=== PATIENT | male | born 1970 | race Hispanic/Latino ===

== ENCOUNTER 2018-01-22 13:09 | Inpatient (IN) | payer SELFPAY ==
[2018-01-22] MEDS ORDERED: NA CHLORIDE 0.9% 1,000 ML ONE (14:18)
[2018-01-22] MEDS ORDERED: ONDANSETRON 4 MG/2 ML VIAL ONE (14:18)
[2018-01-22 14:31] LABS: Absolute Lymphocytes (CBC) 1.7 K/uL (0.7-4.9); Absolute Monocytes 1.1 K/uL (0.1-1.3); Absolute Neutrophil 7.5 K/uL (1.8-8.0); Basophils % 0.3 % (0-1.3); Eosinophils % 0.7 % (0-4.4); Lymphocytes % 16.7 % (15.3-44.8); MCH 29.1 pg (27.0-35.0); MCV 86.7 fL (80-100); MPV 7.2 fL (7.6-11.3); Monocytes % 10.2 % (3.3-12.3)
[2018-01-22 14:52] LABS: Potassium 3.8 mEq/L (3.6-5.0)
[2018-01-22 14:58] LABS: Albumin 5.5 g/dL (3.2-5.5); Bilirubin Direct 0.1 mg/dL (0-0.2); Bilirubin Total 0.5 mg/dL (0.3-1.2)
[2018-01-22] MEDS ORDERED: PROMETHAZINE 25 MG/ML VIAL ONE (15:38)
[2018-01-22 15:56] LABS: Blood Morphology Comment NOT SEEN (NOT SEEN); Platelet Estimate ADEQ
--- NOTE | 2018-01-22 16:25 | RAD REPORT ---
EXAM DESCRIPTION: CT - Abdomen Pelvis W Contrast - 01/22/2018 4:03 pm CLINICAL HISTORY: Epigastric pain, vomiting COMPARISON: None. TECHNIQUE: Biphasic, helical CT imaging of the abdomen and pelvis was performed following 100 ml non -ionic IV contrast. Oral contrast was given. All CT scans are performed using dose optimization technique as appropriate and may include automated exposure control or mA/KV adjustment according to patient size. FINDINGS: No suspicious findings in the lung bases. The liver, spleen, and pancreas show no suspicious findings. Gallbladder and biliary tree are also wi thout suspicious finding. Liver attenuation is borderline fatty infiltrated. Symmetric renal function is seen with no hydronephrosis or suspicious renal mass. No pyelonephritis o r acute renal parenchymal process. Urinary bladder is normal. Prostate gland and seminal vesicles als o within normal limits. Bilateral fat filled inguinal hernias are present with no acute component. No gastric dilatation or gastric wall thickening. No duodenal abnormality. Jejunum and proximal ileum show dilated small bowel pattern up to 3.5 cm in size. Several small mesenteric lymph nodes are pres ent in the central abdomen. There is a swirled or rotated appearance to the central mesenteric vascul ar pedicle. No bowel wall edema. At the transition point in the central mid abdomen there is no mass. Air and fluid are present in the colon. No appendicitis. No free air, free fluid or pneumatosis. No mass or bulky lymphadenopathy. No adrenal abnormality. No suspicious bony findings. IMPRESSION: Multiple dilated small bowel loops with a transition seen in the central abdomen mid ile um level. No mass at this site. There is a rotated or swirled appearance to the mesenteric vascular p edicle. As detailed above, findings could represent an early small bowel obstruction or a prominent gastroent eritis. No free air, abscess or surgically emergent finding.
--- NOTE | 2018-01-22 17:02 | ER ---
Nurse's Notes [facility] Name: Avel Yen Jr Age: 47 yrs Sex: Male : 1970 Arrival Date: 01/22/2018 Time: 13:10 Bed 23 Private MD: Diagnosis: Vomiting;Diarrhea, unspecified;Unspecified abdominal pain Presentation: 01/22 13:48 Presenting complaint: Patient states: Epigastric pain with vomiting and diarrhea for 2 aj days. Patient rates pain at 10/10. Transition of care: patient was not received from another setting of care. Onset of symptoms was January 20, 2018. Initial Sepsis Screen: Does the patient meet any 2 criteria? No. Patient's initial sepsis screen is negative. Does the patient have a suspected source of infection? No. Patient's initial sepsis screen is negative. Care prior to arrival: None. 13:48 Method Of Arrival: Ambulatory aj 13:48 Acuity: DAYANARA 3 aj Triage Assessment: 13:50 General: Appears in no apparent distress. uncomfortable, Behavior is calm, cooperative, aj appropriate for age. Pain: Complains of pain in epigastric area. Neuro: Level of Consciousness is awake, alert, obeys commands, Oriented to person, place, time, situation, Appropriate for age. Respiratory: Airway is patent Respiratory effort is even, unlabored, Respiratory pattern is regular, symmetrical. GI: Reports upper abdominal pain, diarrhea, nausea, vomiting. Derm: Skin is intact, is healthy with good turgor, Skin is pink, warm \T\ dry. normal. Historical: - Allergies: 13:50 No Known Allergies; aj - Home Meds: 13:50 None [Active]; aj - PMHx: 13:50 None; aj - PSHx: 13:50 None; aj - Immunization history:: Adult Immunizations up to date. - Social history:: Smoking status: Patient uses tobacco products, smokes one-half pack cigarettes per day. - Family history:: not pertinent. - Hospitalizations: : No recent hospitalization is reported. Screenin:01 Abuse screen: Denies threats or abuse. Denies injuries from another. Nutritional ss screening: No deficits noted. Tuberculosis screening: Never had TB. Fall Risk None identified. Assessment: 14:01 General: Appears uncomfortable, Behavior is cooperative, anxious, Reports feeling ill ss for fatigue for 2 days. Denies fever. Pain: Complains of pain in abdomen Pain currently is 10 out of 10 on a pain scale. Quality of pain is described as burning, crampy, Pain began 2 days ago Is continuous. Neuro: Level of Consciousness is awake, alert, obeys commands, Oriented to person, place, time, situation, Gait is steady, Speech is normal, Pupils are PERRLA. Cardiovascular: Capillary refill < 3 seconds is brisk in bilateral fingers Patient's skin is warm and dry. Respiratory: Airway is patent Respiratory effort is even, unlabored, Respiratory pattern is regular, symmetrical. GI: Abdomen is non-distended, Bowel sounds present X 4 quads. Abd is soft and non tender X 4 quads. Reports upper abdominal pain, diarrhea, nausea, vomiting. : No signs and/or symptoms were reported regarding the genitourinary system. EENT: Nares are clear Oral mucosa is dry. Derm: Skin is intact, is healthy with good turgor, Skin is dry, Skin is pink, warm \T\ dry. Musculoskeletal: Circulation, motion, and sensation intact. Range of motion: intact in all extremities, Swelling absent. 15:35 Reassessment: Patient woke from sleep with abd pain and vomiting, MD notified, new lk1 orders received. 16:15 Reassessment: Patient and/or family updated on plan of care and expected duration. Pain lk1 level reassessed. Patient is alert, oriented x 3, equal unlabored respirations, skin warm/dry/pink. Patient states feeling better. Patient states symptoms have improved. 18:00 Reassessment: Patient and/or family updated on plan of care and expected duration. Pain lk1 level reassessed. Patient is alert, oriented x 3, equal unlabored respirations, skin warm/dry/pink. Patient states feeling better. Vital Signs: 13:50 BP 143 / 87; Pulse 94; Resp 16; Temp 97.9; Pulse Ox 98% on R/A; Weight 102.06 kg; aj Height 5 ft. 11 in. (180.34 cm); Pain 10/10; 15:30 BP 142 / 81; Pulse 85; Resp 16; Pulse Ox 100% on R/A; Pain 8/10; lk1 17:00 BP 137 / 82; Pulse 86; Resp 16; Pulse Ox 100% on R/A; lk1 18:00 BP 148 / 95; Pulse 82; Resp 15; Pulse Ox 100% on R/A; lk1 18:30 BP 142 / 91; Pulse 83; Resp 16; Pulse Ox 100% on R/A; lk1 13:50 Body Mass Index 31.38 (102.06 kg, 180.34 cm) aj ED Course: 13:10 Patient arrived in ED. as 13:49 Triage completed. aj 13:50 Arm band placed on left wrist. Patient placed in an exam room. aj 13:55 Pablo Cortes MD is Attending Physician. rn 14:00 Aliyah Vazquez RN is Primary Nurse. ss 14:00 Inserted saline lock: 20 gauge in right antecubital area, using aseptic technique. ss Blood collected. Patient maintains SpO2 saturation greater than 95% on room air. 14:01 Patient has correct armband on for positive identification. Bed in low position. Call ss light in reach. 16:[address] via wheelchair. em2 16:03 CT Abd/Pelvis - W/Contrast In Process Unspecified. EDMS 16:04 CT completed. Patient tolerated procedure well. em2 16:05 Patient moved back from CT. em2 17:01 Elisa Chandler MD is Hospitalizing Provider. rn 18:52 No provider procedures requiring assistance completed. Patient admitted, IV remains in lk1 place. intact, No redness/swelling at site. Administered Medications: 14:24 Drug: NS 0.9% 1000 ml Route: IV; Rate: 1000 ml; Site: right antecubital; ss 15:20 Follow up: Response: No adverse reaction; IV Status: Completed infusion lk1 14:25 Drug: Zofran 4 mg Route: IVP; Site: right antecubital; ss 15:00 Follow up: Response: No adverse reaction; Marked relief of symptoms; Nausea is decreasedlk1 15:45 Drug: Phenergan 12.5 mg Route: IVP; Site: right antecubital; lk1 16:15 Follow up: Response: No adverse reaction; Marked relief of symptoms; Nausea is decreasedlk1 17:45 Drug: Rocephin - (cefTRIAXone) 1 grams Route: IVPB; Infused Over: 30 mins; Site: right lk1 antecubital; 18:07 Follow up: Response: No adverse reaction; IV Status: Completed infusion lk1 18:08 Drug: Flagyl 500 mg Volume: 100 ml; Route: IVPB; Rate: 200 ml/hr; Infused Over: 30 lk1 mins; Site: right antecubital; 18:40 Follow up: Response: No adverse reaction; IV Status: Completed infusion lk1 Outcome: 17:02 Decision to Hospitalize by Provider. rn 18:51 Admitted to Med/surg accompanied by tech, via wheelchair, room 406, with chart, Report lk1 called to Blane 18:51 Condition: good 18:51 Discharge instructions given to patient, Instructed on the need for admit, Demonstrated understanding of instructions. 18:52 Patient left the ED. lk1 Signatures: Dispatcher [employer] EDJosephine Márquez RN RN aj Martinez, Amelia as Nieto, Roman, MD MD rn Smirch, Shelby, RN RN ss Montes, Enrique em2 Kluge, Leah, RN RN lk1
--- NOTE | 2018-01-22 17:03 | EDPHYS ---
Physician Documentation [facility] Name: Avel Yen Jr Age: 47 yrs Sex: Male : 1970 Arrival Date: 01/22/2018 Time: 13:10 Bed 23 Private MD: ED Physician Pablo Cortes HPI: 01/22 16:53 This 47 yrs old Male presents to ER via Ambulatory with complaints of rn Abdominal Pain, Vomiting/Diarrhea. 16:53 The patient presents to the emergency department with nausea, vomiting, diarrhea, rn abdominal pain. Onset: The symptoms/episode began/occurred yesterday. Possible causes: unknown. Associated signs and symptoms: Pertinent positives: abdominal pain, diarrhea, nausea, vomiting, Pertinent negatives: fever, GI bleeding. Severity of symptoms: At their worst the symptoms were moderate in the emergency department the symptoms are unchanged. The patient has not experienced similar symptoms in the past. Historical: - Allergies: 13:50 No Known Allergies; aj - Home Meds: 13:50 None [Active]; aj - PMHx: 13:50 None; aj - PSHx: 13:50 None; aj - Immunization history:: Adult Immunizations up to date. - Social history:: Smoking status: Patient uses tobacco products, smokes one-half pack cigarettes per day. - Family history:: not pertinent. - Hospitalizations: : No recent hospitalization is reported. ROS: 16:53 Constitutional: Negative for fever, chills, and weight loss, Eyes: Negative for injury, rn pain, redness, and discharge, Neck: Negative for injury, pain, and swelling, Cardiovascular: Negative for chest pain, palpitations, and edema, Respiratory: Negative for shortness of breath, cough, wheezing, and pleuritic chest pain, Abdomen/GI: + abd pain, vomiting, diarrhea Back: Negative for injury and pain, MS/Extremity: Negative for injury and deformity, Skin: Negative for injury, rash, and discoloration, Neuro: Negative for headache, weakness, numbness, tingling, and seizure. Exam: 16:53 Constitutional: This is a well developed, well nourished patient who is awake, alert, rn actively vomiting, appears uncomfortable Head/Face: Normocephalic, atraumatic. Eyes: Pupils equal round and reactive to light, extra-ocular motions intact. Lids and lashes normal. Conjunctiva and sclera are non-icteric and not injected. Cornea within normal limits. Periorbital areas with no swelling, redness, or edema. ENT: dry MM Cardiovascular: Regular rate and rhythm with a normal S1 and S2. No gallops, murmurs, or rubs. Normal PMI, no JVD. No pulse deficits. Respiratory: Lungs have equal breath sounds bilaterally, clear to auscultation and percussion. No rales, rhonchi or wheezes noted. No increased work of breathing, no retractions or nasal flaring. Abdomen/GI: soft, + periumbilical tenderness, no rebound, no peritoneal signs Skin: Warm, dry, no evidence of cellulitis. MS/ Extremity: Pulses equal, no cyanosis. Neurovascular intact. Full, normal range of motion. Equal circumference. Vital Signs: 13:50 BP 143 / 87; Pulse 94; Resp 16; Temp 97.9; Pulse Ox 98% on R/A; Weight 102.06 kg; aj Height 5 ft. 11 in. (180.34 cm); Pain 10/10; 15:30 BP 142 / 81; Pulse 85; Resp 16; Pulse Ox 100% on R/A; Pain 8/10; lk1 17:00 BP 137 / 82; Pulse 86; Resp 16; Pulse Ox 100% on R/A; lk1 18:00 BP 148 / 95; Pulse 82; Resp 15; Pulse Ox 100% on R/A; lk1 18:30 BP 142 / 91; Pulse 83; Resp 16; Pulse Ox 100% on R/A; lk1 13:50 Body Mass Index 31.38 (102.06 kg, 180.34 cm) aj MDM: 13:55 Patient medically screened. rn 16:53 Differential diagnosis: Nonspecific abd pain, viral gastroenteritis, gastroenteritis, rn obstruction, colitis, enteritis. 16:58 Data reviewed: vital signs, nurses notes, lab test result(s), radiologic studies, CT rn scan, and as a result, I will admit patient. Counseling: I had a detailed discussion with the patient and/or guardian regarding: the historical points, exam findings, and any diagnostic results supporting the discharge/admit diagnosis, lab results, radiology results, the need for further work-up and treatment in the hospital. Admission orders: after a detailed discussion of the patient's condition and case, the admit orders are written by me. 17:00 ED course: Consulted with Dr. Barajas, will admit to Dr. Chandler, abx, fluids, pain meds, rn rpt kub in AM, most likely enteritis, no previous surgeries or reason for SBO. . 01/22 13:59 Order name: Basic Metabolic Panel; Complete Time: 16:07 01/22 13:59 Order name: CBC with Diff; Complete Time: 16: 01/22 13:59 Order name: Creatinine for Radiology; Complete Time: 16:07 01/22 13:59 Order name: Hepatic Function; Complete Time: 16:07 01/22 13:59 Order name: Lipase; Complete Time: 16: 01/22 15:52 Order name: Manual Differential; Complete Time: 16:07 [facility] 01/22 16:46 Order name: Stool Culture 01/22 16:46 Order name: Rotavirus Antigen 01/22 16:46 Order name: Ova And Parasites 01/22 16:46 Order name: CDIFF 01/22 16:46 Order name: Stool Culture [facility] 01/22 16:46 Order name: Rotavirus Antigen [facility] 01/22 13:59 Order name: IV Saline Lock; Complete Time: 14:08 01/22 13:59 Order name: Labs collected and sent; Complete Time: 14:08 01/22 13:59 Order name: CT Abd/Pelvis - W/Contrast; Complete Time: 16:26 01/22 16:47 Order name: Ova and Parasites [facility] 01/22 17:08 Order name: CONS Physician Consult [facility] 01/22 17:08 Order name: NPO [facility] Administered Medications: 14:24 Drug: NS 0.9% 1000 ml Route: IV; Rate: 1000 ml; Site: right antecubital; ss 15:20 Follow up: Response: No adverse reaction; IV Status: Completed infusion lk1 14:25 Drug: Zofran 4 mg Route: IVP; Site: right antecubital; ss 15:00 Follow up: Response: No adverse reaction; Marked relief of symptoms; Nausea is decreasedlk1 15:45 Drug: Phenergan 12.5 mg Route: IVP; Site: right antecubital; lk1 16:15 Follow up: Response: No adverse reaction; Marked relief of symptoms; Nausea is decreasedlk1 17:45 Drug: Rocephin - (cefTRIAXone) 1 grams Route: IVPB; Infused Over: 30 mins; Site: right lk1 antecubital; 18:07 Follow up: Response: No adverse reaction; IV Status: Completed infusion lk1 18:08 Drug: Flagyl 500 mg Volume: 100 ml; Route: IVPB; Rate: 200 ml/hr; Infused Over: 30 lk1 mins; Site: right antecubital; 18:40 Follow up: Response: No adverse reaction; IV Status: Completed infusion lk1 Disposition: 01/22/18 17:02 Hospitalization ordered by Elisa Chandler for Inpatient Admission. Preliminary diagnosis are Vomiting, Diarrhea, unspecified, Unspecified abdominal pain. - Bed requested for Telemetry/MedSurg (Inpatient). - Status is Inpatient Admission. lk1 - Condition is Stable. - Problem is new. - Symptoms have improved. UTI on Admission? No Signatures: Dispatcher [employer] EDCO Josephine Brennan RN RN aj Nieto, Roman, MD MD rn Smirch, Shelby, RN RN ss Kluge, Leah, RN RN lk1 Rajinder Sánchez mw2 Corrections: (The following items were deleted from the chart) 15:52 14:38 CBC Smear Scan ordered. [facility] EDCO 16:47 16:47 Occult Blood+PA.LAB.BRZ ordered. [facility] EDCO 16:55 16:53 Constitutional: This is a well developed, well nourished patient who is awake, rn alert, actively vomiting, appears uncomfortable Head/Face: Normocephalic, atraumatic. Eyes: Pupils equal round and reactive to light, extra-ocular motions intact. Lids and lashes normal. Conjunctiva and sclera are non-icteric and not injected. Cornea within normal limits. Periorbital areas with no swelling, redness, or edema. ENT: dry MM Cardiovascular: Regular rate and rhythm with a normal S1 and S2. No gallops, murmurs, or rubs. Normal PMI, no JVD. No pulse deficits. Respiratory: Lungs have equal breath sounds bilaterally, clear to auscultation and percussion. No rales, rhonchi or wheezes noted. No increased work of breathing, no retractions or nasal flaring. Abdomen/GI: soft, + periumbilical tenderness, no rebound, no peritoneal signs Skin: Warm, dry with normal turgor. Normal color with no rashes, no lesions, and no evidence of cellulitis. MS/ Extremity: Pulses equal, no cyanosis. Neurovascular intact. Full, normal range of motion. Equal circumference. rn
[2018-01-22] MEDS ORDERED: METRONIDAZOLE 500mg IVPB 500 MG/100 ML BAG IV ONE (17:04)
[2018-01-22] MEDS ORDERED: CEFTRIAXONE/SWI 1gm 0 GM/0 ML SYR ONE (17:04)
[2018-01-22] MEDS ORDERED: ONDANSETRON 4 MG/2 ML VIAL IV PRN (17:06)
--- NOTE | 2018-01-22 17:09 | P.HP ---
Certification for Inpatient Patient admitted to: Observation With expected LOS: <2 Midnights Patient will require the following post-hospital care: None Practitioner: I am a practitioner with admitting privileges, knowledge of patient current condition, hospital course, and medical plan of care. Services: Services provided to patient in accordance with Admission requirements found in Title 42 Section 412.3 of the Code of Federal Regulations Patient History Date of Service: 01/22/18 Primary Care Provider: None Reason for admission: Abd Pain History of Present Illness: The 47-year-old with no significant past medical history who presented to the ED complaining of abdominal pain nausea vomiting and diarrhea that has been going on for past 2 days. Patient states that he was in his usual state of health until he started having some nausea vomiting and then came the abdominal pain and then this morning he started having some diarrhea and loose stools. Patient does not remember eating anything unusual and states that this is the 1st time this has happened to him. No fever no chills shortness of breath or chest pain was noted by the patient. No prior hospitalizations for the similar symptoms as well. In the ER patient had a ABD CT done and was consistent with Enteritis and early SBO and thus patient was referred for admission. Allergies No Known Allergies Allergy (Unverified 08/28/17 18:17) Review of Systems General: As per HPI Physical Examination - Physical Exam General: Alert, In no apparent distress HEENT: Atraumatic Neck: Supple Respiratory: Clear to auscultation bilaterally, Normal air movement Cardiovascular: Regular rate/rhythm, Normal S1 S2 Gastrointestinal: Normal bowel sounds, Soft and benign, Non-distended, Tenderness (Generalzied pain more in the lower area) Musculoskeletal: No tenderness Integumentary: No rashes Neurological: Normal speech, Normal strength at 5/5 x4 extr, Normal tone Lymphatics: No axilla or inguinal lymphadenopathy - Studies Laboratory Data (last 24 hrs) 01/22/18 14:00: Creatinine 0.96 01/22/18 14:00: WBC 10.4, Hgb 17.4, Hct 52.0 H, Plt Count 336 01/22/18 14:00: Sodium 132 L, Potassium 3.8, BUN 22 H, Creatinine 1.08, Glucose 128 H, Total Bilirubin 0.5, AST 24, ALT 22, Alkaline Phosphatase 82, Lipase 18 L Assessment and Plan - Problems (Diagnosis) (1) Enteritis Current Visit: Yes Status: Acute Plan: abd pain with N/V and diarrhea. Abd Ct with enteritis and early SBO -IV fluids and IV cipro and flagyl -Surgery Consulted. Reccs appreciated -NPO now (2) SBO (small bowel obstruction) Current Visit: Yes Status: Acute Plan: Early SBO on the CT -Surgery Consulted. Reccs Appreciated -NPO, IV fluids and KUB in AM Discharge Plan: Home Plan to discharge in: 24 Hours - Advance Directives Does patient have a Living Will: No Does patient have a Durable POA for Healthcare: No - Code Status/Comfort Care Code Status Assessed: Yes Critical Care: No
[2018-01-22] MEDS ORDERED: CEFTRIAXONE/SWI 1gm 1 GM/10 ML SYR ONE (17:58)
[2018-01-22] MEDS: NA CHLORIDE 0.9% 1,000 ML IV SCH (19:40)
[2018-01-22] MEDS ORDERED: MORPHINE 4 MG/ML SYR IV PRN (21:19)
[2018-01-22] MEDS: CIPROFLOXACIN 400mg IV 400 MG/200 ML BAG IV SCH (22:17)
[2018-01-23] MEDS: METRONIDAZOLE 500mg IVPB 500 MG/100 ML BAG IV SCH ×3 (00:39→17:10)
[2018-01-23] MEDS: NA CHLORIDE 0.9% 1,000 ML IV SCH ×2 (03:49→16:18)
[2018-01-23 04:17] LABS: Absolute Lymphocytes (CBC) 2.7 K/uL (0.7-4.9); Absolute Neutrophil 4.5 K/uL (1.8-8.0); Basophils % 0.3 % (0-1.3); Eosinophils % 3.1 % (0-4.4); Hematocrit 44.4 % (39.6-49.0); Lymphocytes % 31.7 % (15.3-44.8); MCH 29.1 pg (27.0-35.0); MCV 86.7 fL (80-100); MPV 7.2 fL (7.6-11.3); Monocytes % 11.8 % (3.3-12.3); RBC Red Blood Cell Count 5.12 M/uL (4.33-5.43)
[2018-01-23 04:42] LABS: Albumin 3.9 g/dL (3.2-5.5); Bilirubin Total 0.5 mg/dL (0.3-1.2); Potassium 3.5 mEq/L (3.6-5.0); Protein, Total 7.1 g/dL (6.0-8.3)
[2018-01-23] MEDS ORDERED: KCL 20 MEQ/100 mL IVPB 20 MEQ/100 ML BAG IV SCH (05:30)
[2018-01-23] MEDS: CIPROFLOXACIN 400mg IV 400 MG/200 ML BAG IV SCH ×2 (09:56→20:20)
--- NOTE | 2018-01-23 11:42 | CON ---
Date of Consultation: 01/23/2018 Reason For Consultation: Abdominal pain. History Of Present Illness: The patient is a 47-year-old gentleman, came in complaining of periumbil ical abdominal pain associated with nausea, vomiting, and diarrhea that had been going on for 2 days prior to admission. No blood in stool. No dysuria or hematuria. No sore throat, runny nose, cough, headaches, or dizziness. No chest pain. No fever or chills. The patient not had any abdominal frantz cheryl in the past. Review of Systems: Otherwise unremarkable. Past Medical History: Negative. Past Surgical History: Negative. Allergies: NO ALLERGIES. Social History: He does not smoke. Drinks occasionally. Family History: Noncontributory. Physical Examination: Vital Signs: Stable. He is afebrile. General: He is awake, alert, and oriented x3. Head and Neck: Cranial nerves 2 through 12 are grossly within normal limits. No neck masses. No JV D. Throat clear. Neck is supple. Chest: Clear. Heart: S1, S2. Abdomen: Soft, nondistended, nontender. Positive bowel sounds. Extremities: Neurovascularly intact. Neuro: Nonfocal. Laboratory Data: White count is normal: There is no left shift today; however, he did have 10 bands yesterday on his labs. His electrolytes are reviewed and essentially within normal limits. A CT of the abdomen and pelvis reviewed, shows multiple dilated small bowel loops no mass. There is a questionable of the mesenteric vascular pedicle. These currently represent early sm all bowel obstruction or probably gastroenteritis. No free air, abscess, or surgically emergent find ing. Assessment: Likely gastroenteritis, doubt small bowel obstruction. Recommendation: Continue n.p.o., IV fluid, IV antibiotic. We will check an abdominal x-ray. Should pattern improve, we will start him on diet. Continue hydration and when he is clinically stable, he will be cleared from surgical standpoint for discharge. No need for any acute surgical intervention at this time. /MODL Voice ID: [id number] Report ID: [id number]
--- NOTE | 2018-01-23 12:57 | P.PN ---
Subjective Date of Service: 01/23/18 Primary Care Provider: None Chief Complaint: Abd Pain Patient seen and examined at bedside with RN. Case discussed with general surgery. Currently patient is awaiting KUB. States that he does not have any abdominal pain nausea vomiting and feels really hungry as he has not eaten in 4 days Review of Systems General: As per HPI Physical Examination - Vital Signs Temperature: 97.9 F Blood Pressure: 107/57 Pulse: 68 Respirations: 20 Pulse Ox (%): 100 - Physical Exam General: Alert, In no apparent distress, Oriented x3 HEENT: Atraumatic, PERRLA, EOMI Neck: Supple, JVD not distended Respiratory: Clear to auscultation bilaterally, Normal air movement Cardiovascular: Regular rate/rhythm, Normal S1 S2 Gastrointestinal: Normal bowel sounds, No tenderness Musculoskeletal: No tenderness Integumentary: No rashes Neurological: Normal speech, Normal tone, Normal affect Lymphatics: No axilla or inguinal lymphadenopathy - Studies Laboratory Data (last 24 hrs) 01/22/18 14:00: Creatinine 0.96 01/22/18 14:00: WBC 10.4, Hgb 17.4, Hct 52.0 H, Plt Count 336 01/22/18 14:00: Sodium 132 L, Potassium 3.8, BUN 22 H, Creatinine 1.08, Glucose 128 H, Total Bilirubin 0.5, AST 24, ALT 22, Alkaline Phosphatase 82, Lipase 18 L Medications List Reviewed: Yes Assessment & Plan - Problems (Diagnosis) (1) Enteritis Onset Date: 01/23/18 Current Visit: Yes Status: Acute Plan: abd pain with N/V and diarrhea. Abd Ct with enteritis and early SBO -IV fluids and IV cipro and flagyl -Surgery Consulted. Reccs appreciated -KUB pending after which CLD (2) SBO (small bowel obstruction) Onset Date: 01/23/18 Current Visit: Yes Status: Acute Plan: Early SBO on the CT -Surgery Consulted. Reccs Appreciated -NPO, IV fluids and KUB today. -if no SBO on KUB start on CLD Discharge Plan: Home - Code Status/Comfort Care Code Status Assessed: Yes Critical Care: No
--- NOTE | 2018-01-23 13:08 | RAD REPORT ---
EXAM DESCRIPTION: RAD - Abdomen 1 View (KUB) - 01/23/2018 12:29 pm CLINICAL HISTORY: Abdomen pain. FINDINGS: Multiple loops of small bowel remain mildly dilated. The bowel dilatation is without signi ficant change from the January 22 exam. There is air and contrast present within normal caliber colon This is compatible with a partial mechanical small bowel obstruction.
[2018-01-23] MEDS: Morphine 2 MG/2 ML SYR IV PRN ×2 (17:26→22:38)
[2018-01-24] MEDS: METRONIDAZOLE 500mg IVPB 500 MG/100 ML BAG IV SCH ×3 (01:18→16:50)
[2018-01-24 06:16] LABS: Absolute Lymphocytes (CBC) 2.2 K/uL (0.7-4.9); Absolute Monocytes 0.7 K/uL (0.1-1.3); Absolute Neutrophil 3.7 K/uL (1.8-8.0); Basophils % 0.3 % (0-1.3); Eosinophils % 2.4 % (0-4.4); Hematocrit 40.2 % (39.6-49.0); Lymphocytes % 32.4 % (15.3-44.8); MCH 29.3 pg (27.0-35.0); MCV 85.1 fL (80-100); Monocytes % 9.8 % (3.3-12.3); RBC Red Blood Cell Count 4.72 M/uL (4.33-5.43)
[2018-01-24 06:48] LABS: ALT/SGPT 25 IU/L (10-60); AST/SGOT 20 IU/L (10-42); Albumin 3.5 g/dL (3.2-5.5); Alkaline Phosphatase 58 IU/L (42-121); BUN Blood Urea Nitrogen 11 mg/dL (6-20); Bicarbonate 27 mEq/L (21-31); Bilirubin Total 0.6 mg/dL (0.3-1.2); Glucose Level 79 mg/dL (65-120); Phosphorus 3.5 mg/dL (2.5-4.3); Potassium 3.5 mEq/L (3.6-5.0); Protein, Total 6.2 g/dL (6.0-8.3); Sodium Level 137 mEq/L (135-145)
[2018-01-24] MEDS: KCL 20 MEQ/100 mL IVPB 20 MEQ/100 ML BAG IV SCH ×2 (09:00→09:37)
[2018-01-24] MEDS: CIPROFLOXACIN 400mg IV 400 MG/200 ML BAG IV SCH (09:29)
[2018-01-24] MEDS: NA CHLORIDE 0.9% 1,000 ML IV SCH ×2 (09:30)
[2018-01-24] MEDS ORDERED: FLEET ENEMA ADULT PR PRN (10:36)
--- NOTE | 2018-01-24 13:43 | PN ---
Date of Progress Note: 01/24/2018 The patient is awake, alert. Tolerated his clear liquids yesterday. No pain. Passing gas. C diff is negative. Objective: Vital Signs: Stable. Afebrile. Abdomen: Completely benign. Assessment: Gastroenteritis. Recommendation: Advance diet as tolerated. Cleared for discharge. Followup wit PCP. /MODL Voice ID: [id number] Report ID: [id number]
--- NOTE | 2018-01-24 14:15 | P.DS ---
Admission Date: 01/22/18 Discharge Date: 01/24/18 Primary Care Provider: None Disposition: ROUTINE DISCHARGE Discharge Condition: GOOD Reason for Admission: Abd Pain Consultations: Surgery - Problems (1) Enteritis Onset Date: 01/23/18 Current Visit: Yes Status: Resolved (2) SBO (small bowel obstruction) Onset Date: 01/23/18 Current Visit: Yes Status: Resolved Brief History of Present Illness: The 47-year-old with no significant past medical history who presented to the ED complaining of abdominal pain nausea vomiting and diarrhea that has been going on for past 2 days. Patient states that he was in his usual state of health until he started having some nausea vomiting and then came the abdominal pain and then this morning he started having some diarrhea and loose stools. Patient does not remember eating anything unusual and states that this is the 1st time this has happened to him. No fever no chills shortness of breath or chest pain was noted by the patient. No prior hospitalizations for the similar symptoms as well. In the ER patient had a ABD CT done and was consistent with Enteritis and early SBO and thus patient was referred for admission. Hospital Course: Overall during the hospital stay patient remained stable Initially patient was admitted to the hospital for abdominal pain nausea vomiting and was found to have enteritis and possible small bowel obstruction. General surgery was consulted who recommended patient be on NPO IV fluids and antibiotics. Patient was started on Ciprofloxacin and Flagyl. Patient had marked improvement in his symptoms and repeat KUB was negative for any small bowel obstruction. Patient's diet was thus advanced to a clear liquid diet and then to a full liquid diet to a regular diet. Patient tolerated the diet well. At that time patient was discharged home under stable condition with a prescription for ciprofloxacin and Flagyl was asked to follow up with surgery in about 1-2 weeks post discharge. Patient was educated extensively on dietary changes along with Increasing fiber in his diet. Vital Signs/Physical Exam: Temp Pulse Resp BP Pulse Ox 97.6 F 71 18 131/62 99 01/24/18 12:00 01/24/18 12:00 01/24/18 12:00 01/24/18 12:01/24/18 12:00 General: Alert, In no apparent distress HEENT: Atraumatic, PERRLA, EOMI Neck: Supple, JVD not distended Respiratory: Clear to auscultation bilaterally, Normal air movement Cardiovascular: Regular rate/rhythm, Normal S1 S2 Gastrointestinal: Normal bowel sounds, No tenderness Musculoskeletal: No tenderness Integumentary: No rashes Neurological: Normal speech, Normal tone, Normal affect Lymphatics: No axilla or inguinal lymphadenopathy Laboratory Data at Discharge: WBC 6.8 K/uL (4.3-10.9) D 01/24/18 05:25 Hgb 13.8 g/dL (13.6-17.9) 01/24/18 05:25 Hct 40.2 % (39.6-49.0) 01/24/18 05:25 Plt Count 284 K/uL (152-406) 01/24/18 05:25 Sodium 137 mEq/L (135-145) 01/24/18 05:25 Potassium 3.5 mEq/L (3.6-5.0) L 01/24/18 05:25 BUN 11 mg/dL (6-20) 01/24/18 05:25 Creatinine 0.67 mg/dL (0.61-1.24) 01/24/18 05:25 Glucose 79 mg/dL (65-120) 01/24/18 05:25 Phosphorus 3.5 mg/dL (2.5-4.3) 01/24/18 05:25 Magnesium 2.0 mg/dL (1.8-2.5) 01/24/18 05:25 Total Bilirubin 0.6 mg/dL (0.3-1.2) 01/24/18 05:25 AST 20 IU/L (10-42) 01/24/18 05:25 ALT 25 IU/L (10-60) 01/24/18 05:25 Alkaline Phosphatase 58 IU/L (42-121) 01/24/18 05:25 Lipase 18 U/L (22-51) L 01/22/18 14:00 Home Medications: Ciprofloxacin HCl [Cipro 500 MG Tablet] 500 mg PO DAILY #10 tab 01/24/18 Metronidazole [Flagyl] 500 mg PO Q8H #30 tablet 01/24/18 New Medications: Ciprofloxacin HCl [Cipro 500 MG Tablet] 500 mg PO DAILY #10 tab Metronidazole [Flagyl] 500 mg PO Q8H #30 tablet Diet: Regular Activity: Ad terrance Followup: Enoch Moses MD [ACTIVE - CAN ADMIT] - 1 Week (call to schedule appointment) Nathan Barajas MD [ACTIVE - CAN ADMIT] - 1 Week (call to schedule appointment)
== END 2018-01-24 16:50 | disposition home or self-care (01) | DRG 392 ==
LOC: ER 13:09 → ERHOLD 17:03 → 4TH 18:41
PROVIDERS: ADMIT Family Medicine; ATTEND Family Medicine
DX: K52.9 Noninfective gastroenteritis and colitis, unspecified (principal)
CPT/HCPCS: 36415; 74018; 74177; 80048; 80053; 80076; 83690; 83735; 84100; 85025; 87045; 87046; 87177; 87209; 87425; 87493; 96361; 96365; 96367; 96375; 99285; J0696; J0744; J2270; J2405; J2550; J7030; Q9967

== ENCOUNTER 2018-06-13 05:20 | Emergency (ER) | payer SELFPAY ==
[2018-06-13] MEDS ORDERED: ONDANSETRON 4 MG/2 ML VIAL ONE (09:30)
[2018-06-13] MEDS ORDERED: KETOROLAC 30 MG/ML INJ ONE (09:30)
[2018-06-13] MEDS ORDERED: NA CHLORIDE 0.9% 1,000 ML ONE (09:30)
--- NOTE | 2018-06-13 10:55 | RAD REPORT ---
EXAM DESCRIPTION: CT - Head C Spine Cap [place] Mon - 06/13/2018 10:37 am CLINICAL HISTORY: Fall, head, neck, chest and abdomen pain Due to malfunctioning of the PACs and supervisor tan room system common no report could be generated at the time of the study. Images were reviewed in telephoned to the referring physician 9:40 a.m.. COMPARISON: CT imaging December 2017 TECHNIQUE: Axial [address] head images were obtained. Axial [address] cervical spine images were obtaine d with sagittal and coronal reconstruction images reviewed. During dynamic enhancement of 100mL non-i onic contrast, axial 5 mm images of the chest, abdomen and pelvis were obtained. All CT scans are performed using dose optimization technique as appropriate and may include automated exposure control or mA/KV adjustment according to patient size. FINDINGS: No intracranial hemorrhage, mass or edema. No midline shift or abnormal fluid collection. Mastoid air cells and paranasal sinuses are clear of acute finding. No skull fracture. CT cervical spine imaging shows normal height. Normal alignment of the vertebrae. No disc space narro wing. No paraspinal mass or hematoma seen. Central canal detail is inherently limited. Concerns for t raumatic disc herniation or traumatic cord injury can be further addressed with MR imaging. CT chest shows no pneumothorax, pulmonary contusion or pleural fluid collection. No mediastinal hemat jeevan and the aorta and pulmonary arteries are unremarkable. No chest will mass or abnormal axillary fi nding. No displaced rib fracture or other significant bony finding. CT abdomen and pelvis show no injury to solid abdominal viscera. Liver shows a mild diffuse fatty inf iltration pattern. Gallbladder and biliary tree are unremarkable. No bowel injury or significant find ing. No free air, free fluid or abnormal stranding. No urinary bladder abnormality. No significant bony finding. Minimal degenerative changes are present. IMPRESSION: No significant CT Head finding. No significant CT Cervical Spine finding. No significant CT Chest finding. No significant CT Abdomen and Pelvis finding.
--- NOTE | 2018-06-13 12:06 | ER ---
Nurse's Notes [facility] Name: Avel Yen Jr Age: 47 yrs Sex: Male : 1970 Arrival Date: 06/13/2018 Time: 05:21 Bed 2 Private MD: Diagnosis: Fall due to bumping against object;Low back pain;Weakness;Syncope and collapse-near Presentation: 06/13 05:22 Presenting complaint: EMS states: NEAR SYNCOPE WHILE CLIMBING BUNK NOW WITH BACK PAIN. bp Transition of care: patient was not received from another setting of care. Onset of symptoms was June 13, 2018 at 05:00. Risk Assessment: Do you want to hurt yourself or someone else? Patient reports no desire to harm self or others. Initial Sepsis Screen: Does the patient meet any 2 criteria? No. Patient's initial sepsis screen is negative. Does the patient have a suspected source of infection? No. Patient's initial sepsis screen is negative. Care prior to arrival: None. 05:22 Method Of Arrival: EMS: [facility] bp 05:22 Acuity: DAYANARA 4 bp Triage Assessment: 05:23 General: Appears in no apparent distress. uncomfortable, obese, Behavior is calm, bp cooperative, appropriate for age. Pain: Complains of pain in back. EENT: No deficits noted. Neuro: Level of Consciousness is awake, alert, obeys commands, Oriented to person, place, time, situation, Appropriate for age. Cardiovascular: No deficits noted. Respiratory: Airway is patent Respiratory effort is even, unlabored, Respiratory pattern is regular, symmetrical. GI: No signs and/or symptoms were reported involving the gastrointestinal system. : No signs and/or symptoms were reported regarding the genitourinary system. Derm: No deficits noted. Musculoskeletal: Circulation, motion, and sensation intact. Range of motion: intact in all extremities. Historical: - Allergies: 05:23 No Known Allergies; bp - Home Meds: 05:23 None [Active]; bp - PMHx: 05:23 None; bp - Immunization history:: Adult Immunizations up to date. - Social history:: Smoking status: Patient uses tobacco products, denies chronic smoking, but will smoke occasionally, Patient uses alcohol. - Ebola Screening: : Patient negative for fever greater than or equal to 101.5 degrees Fahrenheit, and additional compatible Ebola Virus Disease symptoms Patient denies exposure to infectious person Patient denies travel to an Ebola-affected area in the 21 days before illness onset No symptoms or risks identified at this time. Screenin:25 Abuse screen: Denies threats or abuse. Denies injuries from another. Nutritional bp screening: No deficits noted. Tuberculosis screening: No symptoms or risk factors identified. Fall Risk None identified. Assessment: 05:25 General: SEE TRIAGE NOTE. NO TRAUMA OR FALL. Neuro: Level of Consciousness is awake, bp alert, obeys commands, Oriented to person, place, time, situation, Appropriate for age. 08:47 Reassessment: Patient appears in no apparent distress at this time. See Down time charting for charting. Computers are up now, charting resumed in computer. Neuro: No deficits noted. Cardiovascular: Heart tones S1 S2 present. Respiratory: No deficits noted. 10:18 Reassessment: Patient appears in no apparent distress at this time. Patient and/or family updated on plan of care and expected duration. Pain level reassessed. Patient is alert, oriented x 3, equal unlabored respirations, skin warm/dry/pink. Patient states feeling better. Patient states symptoms have improved. 10:19 Reassessment: ERP STATES DO NOT DISCHARGE PT UNTIL HE SEES AN EKG. 11:01 Reassessment: Patient appears in no apparent distress at this time. No changes from previously documented assessment. Patient and/or family updated on plan of care and expected duration. Pain level reassessed. Patient is alert, oriented x 3, equal unlabored respirations, skin warm/dry/pink. Patient states symptoms have not improved. pt states he still has pain in his neck and shoulder. pt discharged home with prescription for pain medication. . Vital Signs: 05:23 BP 138 / 91; Pulse 70; Resp 16; Temp 98.5; Pulse Ox 100% ; Weight 104.33 kg; Height 5 bp ft. 11 in. (180.34 cm); 08:47 BP 132 / 76; Pulse 68; Resp 14; Temp 98.3; Pulse Ox 99% on R/A; Pain 3/10; ch 10:18 BP 128 / 84; Pulse 84; Resp 16; Temp 98; Pulse Ox 97% on R/A; Pain 5/10; ch 11:01 BP 135 / 86; Pulse 76; Resp 15; Temp 98.5; Pulse Ox 99% on R/A; Pain 5/10; ch 05:23 Body Mass Index 32.08 (104.33 kg, 180.34 cm) bp ED Course: 05:21 Patient arrived in ED. bp 05:22 Sang Kinsey MD is Attending Physician. kdr 05:22 Triage completed. bp 05:23 Arm band placed on right wrist. bp 05:25 Patient has correct armband on for positive identification. Placed in gown. Bed in low bp position. Call light in reach. Side rails up X2. 08:46 Josefina Norris, RN is Primary Nurse. ch 09:13 Attending Physician role handed off by Sang Kinsey MD flavia 09:13 Medhat Saldana MD is Attending Physician. flavia 10:50 EKG done, by performing arts technicians. reviewed by Medhat Saldana MD. at1 11:01 No provider procedures requiring assistance completed. IV discontinued, intact, ch bleeding controlled, No redness/swelling at site. Pressure dressing applied. Administered Medications: 08:35 Drug: Zofran 4 mg Route: IVP; Site: right antecubital; ch 11:03 Follow up: Response: No adverse reaction; Marked relief of symptoms ch 09:35 Drug: NS 0.9% 1000 ml Route: IV; Rate: 1 bolus; Site: right antecubital; ch 11:04 Follow up: IV Status: Completed infusion; IV Intake: 1000ml ch 09:35 Drug: TORadol 30 mg Route: IVP; Site: right antecubital; ch 11:03 Follow up: Response: No adverse reaction; Marked relief of symptoms ch Intake: 11:04 IV: 1000ml; Total: 1000ml. ch Outcome: 10:10 Discharge ordered by . flavia 11:01 Discharged to home ambulatory, pt given bus [facility] 11:01 Condition: stable 11:01 Discharge instructions given to patient, Instructed on discharge instructions, follow up and referral plans. medication usage, Demonstrated understanding of instructions, follow-up care, medications, Prescriptions given X 1. 11:04 Patient left the ED. ch Signatures: Josefina Norris, RN RN Medhat Rider MD MD cha Rittger, Kevin, MD MD kdr Gonzales, Amanda, child care coordinator EKG Tat1 Mitch, Yariel, RN RN bp
--- NOTE | 2018-06-13 12:06 | EDPHYS ---
Physician Documentation [facility] Name: Avel Yen Jr Age: 47 yrs Sex: Male : 1970 Arrival Date: 06/13/2018 Time: 05:21 Bed 2 Private MD: ED Physician Medhat Saldana HPI: 06/13 09:15 This 47 yrs old Male presents to ER via EMS with complaints of Back Pain, Near flavia Syncope. 09:15 The patient presents with pain that is acute. The symptoms are located in the low back, flavia right mid back and right low back. Historical: - Allergies: 05:23 No Known Allergies; bp - Home Meds: 05:23 None [Active]; bp - PMHx: 05:23 None; bp - Immunization history:: Adult Immunizations up to date. - Social history:: Smoking status: Patient uses tobacco products, denies chronic smoking, but will smoke occasionally, Patient uses alcohol. - Ebola Screening: : Patient negative for fever greater than or equal to 101.5 degrees Fahrenheit, and additional compatible Ebola Virus Disease symptoms Patient denies exposure to infectious person Patient denies travel to an Ebola-affected area in the 21 days before illness onset No symptoms or risks identified at this time. ROS: 09:16 Constitutional: Negative for fever, chills, and weight loss, Eyes: Negative for injury, flavia pain, redness, and discharge, ENT: Negative for injury, pain, and discharge, Cardiovascular: Negative for chest pain, palpitations, and edema, Respiratory: Negative for shortness of breath, cough, wheezing, and pleuritic chest pain, Abdomen/GI: Negative for abdominal pain, nausea, vomiting, diarrhea, and constipation, : Negative for injury, bleeding, discharge, and swelling, MS/Extremity: Negative for injury and deformity, Skin: Negative for injury, rash, and discoloration, Neuro: Negative for headache, weakness, numbness, tingling, and seizure, Psych: Negative for depression, anxiety, suicide ideation, homicidal ideation, and hallucinations, Allergy/Immunology: Negative for hives, rash, and allergies, Endocrine: Negative for neck swelling, polydipsia, polyuria, polyphagia, and marked weight changes, Hematologic/Lymphatic: Negative for swollen nodes, abnormal bleeding, and unusual bruising. Exam: 09:16 Constitutional: This is a well developed, well nourished patient who is awake, alert, flavia and in no acute distress. Head/Face: Normocephalic, atraumatic. Eyes: Pupils equal round and reactive to light, extra-ocular motions intact. Lids and lashes normal. Conjunctiva and sclera are non-icteric and not injected. Cornea within normal limits. Periorbital areas with no swelling, redness, or edema. ENT: Nares patent. No nasal discharge, no septal abnormalities noted. Tympanic membranes are normal and external auditory canals are clear. Oropharynx with no redness, swelling, or masses, exudates, or evidence of obstruction, uvula midline. Mucous membranes moist. Neck: Trachea midline, no thyromegaly or masses palpated, and no cervical lymphadenopathy. Supple, full range of motion without nuchal rigidity, or vertebral point tenderness. No Meningismus. Cardiovascular: Regular rate and rhythm with a normal S1 and S2. No gallops, murmurs, or rubs. Normal PMI, no JVD. No pulse deficits. Respiratory: Lungs have equal breath sounds bilaterally, clear to auscultation and percussion. No rales, rhonchi or wheezes noted. No increased work of breathing, no retractions or nasal flaring. Abdomen/GI: Soft, non-tender, with normal bowel sounds. No distension or tympany. No guarding or rebound. No evidence of tenderness throughout. Male : Normal genitalia with no discharge or lesions. Skin: Warm, dry with normal turgor. Normal color with no rashes, no lesions, and no evidence of cellulitis. MS/ Extremity: Pulses equal, no cyanosis. Neurovascular intact. Full, normal range of motion. Neuro: Awake and alert, GCS 15, oriented to person, place, time, and situation. Cranial nerves II-XII grossly intact. Motor strength 5/5 in all extremities. Sensory grossly intact. Cerebellar exam normal. Normal gait. Psych: Awake, alert, with orientation to person, place and time. Behavior, mood, and affect are within normal limits. 09:16 Chest/axilla: Inspection: normal, Palpation: tenderness, that is mild, that is moderate, of the right clavicle, anterior aspect of right upper chest, diaphragm and right breast, Axilla: are normal, Lymph nodes: lymphadenopathy is not appreciated. Vital Signs: 05:23 BP 138 / 91; Pulse 70; Resp 16; Temp 98.5; Pulse Ox 100% ; Weight 104.33 kg; Height 5 bp ft. 11 in. (180.34 cm); 08:47 BP 132 / 76; Pulse 68; Resp 14; Temp 98.3; Pulse Ox 99% on R/A; Pain 3/10; ch 10:18 BP 128 / 84; Pulse 84; Resp 16; Temp 98; Pulse Ox 97% on R/A; Pain 5/10; ch 11:01 BP 135 / 86; Pulse 76; Resp 15; Temp 98.5; Pulse Ox 99% on R/A; Pain 5/10; ch 05:23 Body Mass Index 32.08 (104.33 kg, 180.34 cm) bp MDM: 09:13 Patient medically screened. [facility] 09:18 Data reviewed: vital signs, nurses notes, lab test result(s), EKG, radiologic studies, [facility] plain films. 06/13 09:15 Order name: CT Traumagram (Head C Spine CAP W Con) [facility] 06/13 09:15 Order name: EKG; Complete Time: 13:33 [facility] 06/13 09:15 Order name: Cardiac monitoring; Complete Time: 10:17 [facility] 06/13 09:15 Order name: EKG - Nurse/Tech; Complete Time: 10:17 [facility] 06/13 09:15 Order name: IV Saline Lock; Complete Time: 10:17 [facility] 06/13 09:15 Order name: Labs collected and sent; Complete Time: 10:17 [facility] 06/13 09:32 Order name: Diet Regular; Complete Time: 13:33 06/13 09:15 Order name: O2 Per Protocol; Complete Time: 10:17 [facility] 06/13 09:15 Order name: O2 Sat Monitoring; Complete Time: 10:17 [facility] Administered Medications: 08:35 Drug: Zofran 4 mg Route: IVP; Site: right antecubital; 11:03 Follow up: Response: No adverse reaction; Marked relief of symptoms 09:35 Drug: NS 0.9% 1000 ml Route: IV; Rate: 1 bolus; Site: right antecubital; ch 11:04 Follow up: IV Status: Completed infusion; IV Intake: 1000ml 09:35 Drug: TORadol 30 mg Route: IVP; Site: right antecubital; ch 11:03 Follow up: Response: No adverse reaction; Marked relief of symptoms Disposition: 06/13/18 10:10 Discharged to Home. Impression: Fall due to bumping against object, Low back pain, Weakness, Syncope and collapse - near. - Condition is Stable. - Discharge Instructions: Back Pain, Adult, Fall Prevention in the Home, Near-Syncope, Near-Syncope, [id number], Back Pain, Adult, [id number], Fall Prevention in the Home, [id number]. - Prescriptions for Motrin IB 200 mg Oral Tablet - take 2 tablet by ORAL route every 6 hours As needed as needed with food; 30 tablet. - Medication Reconciliation Form, Thank You Letter, Antibiotic Education, Prescription Opioid Use form. - Follow up: Private Physician; When: 2 - 3 days; Reason: Recheck today's complaints, Continuance of care, Re-evaluation by your physician. - Problem is new. - Symptoms have improved. Signatures: Dispatcher [employer] EDJosefina Silveira RN RN Medhat Saldana MD MD cha Peltier, Brian, RN RN bp Corrections: (The following items were deleted from the chart) 11:04 10:10 06/13/2018 10:10 Discharged to Home. Impression: Fall due to bumping against ch object; Low back pain; Weakness; Syncope and collapse - near. Condition is Stable. Discharge Instructions: Back Pain, Adult, Fall Prevention in the Home, Near-Syncope, Near-Syncope, [id number], Back Pain, Adult, [id number], Fall Prevention in the Home, [id number]. Prescriptions for Motrin IB 200 mg Oral Tablet - take 2 tablet by ORAL route every 6 hours As needed as needed with food; 30 tablet. and Forms are Medication Reconciliation Form, Thank You Letter, Antibiotic Education, Prescription Opioid Use. Follow up: Private Physician; When: 2 - 3 days; Reason: Recheck today's complaints, Continuance of care, Re-evaluation by your physician. Problem is new. Symptoms have improved. flavia
[2018-06-13 12:23] LABS: Absolute Lymphocytes (CBC) 4.2 K/uL (0.7-4.9); Absolute Monocytes 0.7 K/uL (0.1-1.3); Absolute Neutrophil 7.1 K/uL (1.8-8.0); Basophils % 0.6 % (0-1.3); Eosinophils % 1.8 % (0-4.4); Hematocrit 40.5 % (39.6-49.0); Lymphocytes % 34.4 % (15.3-44.8); MCV 88.4 fL (80-100); Monocytes % 5.7 % (3.3-12.3); RBC Red Blood Cell Count 4.58 M/uL (4.33-5.43)
[2018-06-13 12:30] LABS: BUN Blood Urea Nitrogen 15 mg/dL (7-18); Bicarbonate 30 mmol/L (21-32); Glucose Level 97 mg/dL (74-106); Potassium 3.9 mmol/L (3.5-5.1); Sodium Level 140 mmol/L (136-145)
[2018-06-13 12:34] LABS: Barbiturates NEGATIVE (NEGATIVE); Benzodiazepines NEGATIVE (NEGATIVE); Cocaine NEGATIVE (NEGATIVE); METHAMPHETAM NEGATIVE (NEGATIVE); Methadone NEGATIVE (NEGATIVE); Opiates NEGATIVE (NEGATIVE); Phencyclidine NEGATIVE (NEGATIVE); THC Cannibis NEGATIVE (NEGATIVE)
[2018-06-13 12:52] LABS: CKMB Creatine Kinase MB < 1.0 ng/mL (0.3-3.6); Creatine Phosphokinase 87 U/L (39-308); Magnesium 1.9 mg/dL (1.8-2.4); Troponin I < 0.02 ng/mL (0.0-0.045)
[2018-06-13 12:59] LABS: Urine Blood NEGATIVE (NEG); Urine Glucose NEGATIVE (NEG); Urine Protein NEGATIVE (NEG); Urine pH 5.5 (5.0-7.0)
--- NOTE | 2018-06-14 12:13 | EKG ---
Test Date: 2018-06-13 Test Time: 10:19:04 Legal Writing Professor: IAS MEASUREMENT RESULTS: Intervals: Rate: 70 [place]: 156 QRSD: 92 QT: 410 QTc: 442 [place]: P: 45 [place]: 156 QRS: 54 T: 39 INTERPRETIVE STATEMENTS: Normal sinus rhythm Normal ECG No previous ECG available for comparison Electronically Signed On 06-14-18 12:08:01 CDT by Lex Hong
== END 2018-06-13 11:04 | disposition home or self-care (01) ==
LOC: ER 05:20
DX: M54.5 Low back pain (principal); R55 Syncope and collapse; W18.00XA Striking against unspecified object with subsequent fall, initial encounter; Y93.9 Activity, unspecified; Y92.9 Unspecified place or not applicable; Z72.0 Tobacco use
CPT/HCPCS: 36415; 70450; 71260; 72125; 74177; 80048; 80307; 81003; 82550; 82553; 83735; 84484; 85025; 93005; 96361; 96374; 96375; 99284; J2405; J7030; Q9967

== ENCOUNTER 2018-11-21 10:31 | Emergency (ER) | payer SELFPAY ==
[2018-11-21] MEDS ORDERED: CYCLOBENZAPRINE 10 MG TAB ONE (11:33)
[2018-11-21] MEDS ORDERED: KETOROLAC 30 MG/ML INJ ONE (11:33)
[2018-11-21] MEDS ORDERED: HYDROCODONE/APAP 7.5/325 MG TAB ONE (11:33)
--- NOTE | 2018-11-21 12:07 | ER ---
Nurse's Notes [facility] Name: Avel Yen Jr Age: 48 yrs Sex: Male : 1970 Arrival Date: 11/21/2018 Time: 10:34 Bed 15 Private MD: Diagnosis: Muscle spasm of back Presentation: 11/21 10:42 Presenting complaint: Patient states: Pain that began in R mid back that radiated down ss to lower back and now reportedly wraps around the front of his upper abdomen and lower chest as if there is a band around him. Pt reports at night he experiences chest pressure. Transition of care: patient was not received from another setting of care. Onset of symptoms was November 19, 2018. Risk Assessment: Do you want to hurt yourself or someone else? Patient reports no desire to harm self or others. Initial Sepsis Screen: Does the patient meet any 2 criteria? No. Patient's initial sepsis screen is negative. Does the patient have a suspected source of infection? No. Patient's initial sepsis screen is negative. Care prior to arrival: None. 10:42 Method Of Arrival: Ambulatory ss 10:42 Acuity: DAYANARA 3 ss Historical: - Allergies: 10:45 No Known Allergies; ss - Home Meds: 10:45 None [Active]; ss - PMHx: 10:45 None; ss - PSHx: 10:45 None; ss - Immunization history:: Adult Immunizations up to date. - Social history:: Smoking status: Patient uses tobacco products, "vape". - Ebola Screening: : Patient denies exposure to infectious person Patient denies travel to an Ebola-affected area in the 21 days before illness onset. Screenin:25 Abuse screen: Denies threats or abuse. Nutritional screening: No deficits noted. em Tuberculosis screening: No symptoms or risk factors identified. Assessment: 11:25 General: Appears in no apparent distress. uncomfortable, Behavior is calm, cooperative. em Pain: Complains of pain in left mid back and left low back Pain currently is 10 out of 10 on a pain scale. Quality of pain is described as sharp, Pain began 2-3 days ago. Is intermittent. Neuro: Level of Consciousness is awake, alert, obeys commands, Oriented to person, place, time, situation, Moves all extremities. Denies paresthesias numbness. Cardiovascular: Capillary refill < 3 seconds Patient's skin is warm and dry. Respiratory: Airway is patent Respiratory effort is even, unlabored, Respiratory pattern is regular, symmetrical. GI: Abdomen is round non-distended, Patient currently denies nausea, vomiting. : Urine is clear. Derm: Skin is intact, is healthy with good turgor, Skin is pink, warm \\T\\ dry. Musculoskeletal: Circulation, motion, and sensation intact. Range of motion: intact in all extremities. 11:40 Reassessment: Patient appears in no apparent distress at this time. I agree with the sv above assessment. 12:13 Reassessment: Patient appears in no apparent distress at this time. Patient and/or em family updated on plan of care and expected duration. Pain level reassessed. Patient is alert, oriented x 3, equal unlabored respirations, skin warm/dry/pink. rates pain 6/10 Patient states feeling better. Patient states symptoms have improved. Vital Signs: 10:45 BP 133 / 81; Pulse 76; Resp 17; Temp 97.6(TE); Pulse Ox 96% on R/A; Height 5 ft. 11 in. ss (180.34 cm); Pain 10/10; 12:00 BP 128 / 75; Pulse 68; Resp 18; Pulse Ox 99% on R/A; Pain 6/10; em ED Course: 10:34 Patient arrived in ED. as 10:44 Triage completed. ss 10:45 Arm band placed on right wrist. ss 10:48 Titi Bueno LVN is Primary Nurse. em 10:54 Gen Schafre PA is PHCP. jr8 10:54 Sang Kinsey MD is Attending Physician. jr8 11:25 Patient has correct armband on for positive identification. Fall risk band placed. em Placed in gown. Bed in low position. Call light in reach. Pulse ox on. NIBP on. 12:12 No provider procedures requiring assistance completed. Patient did not have IV access em during this emergency room visit. Administered Medications: 11:30 Drug: Flexeril 10 mg Route: PO; em 11:59 Follow up: Response: No adverse reaction; Pain is decreased em 11:30 Drug: TORadol 60 mg Route: IM; Site: right gluteus; em 11:59 Follow up: Response: No adverse reaction; Pain is decreased em 11:30 Drug: [place] (7.5 mg-325 mg) 1 tabs Route: PO; em 12:00 Follow up: Response: No adverse reaction; Pain is decreased em Outcome: 12:07 Discharge ordered by MD. guerra 12:12 Discharged to home ambulatory. em 12:12 Condition: good 12:12 Discharge instructions given to patient, Instructed on discharge instructions, follow up and referral plans. medication usage, Demonstrated understanding of instructions, follow-up care, medications, Prescriptions given X 2. 12:21 Patient left the ED. em Signatures: Michell Chandler, RN RN sv Titi Bueno, SEXUAL ASSAULT COUNSELOR SEXUAL ASSAULT COUNSELOR em Mary Swain Shelby, RN RN ss Gen Schafer PA PA jrGabriela
--- NOTE | 2018-11-21 12:07 | EDPHYS ---
Physician Documentation [facility] Name: Avel Yen Jr Age: 48 yrs Sex: Male : 1970 Arrival Date: 11/21/2018 Time: 10:34 Bed 15 Private MD: ED Physician Sang Kinsey HPI: 11/21 11:13 This 48 yrs old Male presents to ER via Ambulatory with complaints of Low Back jr8 Pain. 11:13 The patient presents with pain that is acute, with no known mechanism of injury. The jr8 symptoms are located in the right subscapular area, right mid back and right low back. radiation to right rib cage. The problem was sustained from unknown cause. Onset: The symptoms/episode began/occurred acutely, yesterday. Modifying factors: The patient symptoms are alleviated by nothing, the patient symptoms are aggravated by any movement, bending, coughing, lifting. Associated signs and symptoms: The patient has no apparent associated signs or symptoms. Severity of symptoms: At their worst the symptoms were moderate, in the emergency department the symptoms are unchanged. The patient has experienced a previous episode. The patient has not recently seen a physician. History of fall with injury to back in past. Stated that he did not fall this time. Sudden pain to lower and mid back. Historical: - Allergies: 10:45 No Known Allergies; ss - Home Meds: 10:45 None [Active]; ss - PMHx: 10:45 None; ss - PSHx: 10:45 None; ss - Immunization history:: Adult Immunizations up to date. - Social history:: Smoking status: Patient uses tobacco products, "vape". - Ebola Screening: : Patient denies exposure to infectious person Patient denies travel to an Ebola-affected area in the 21 days before illness onset. ROS: 11:13 Constitutional: Negative for fever, chills, and weight loss. jr8 11:13 Back: Positive for pain at rest, pain with movement, radiated pain. 11:13 All other systems are negative. Exam: 11:13 Eyes: Pupils equal round and reactive to light, extra-ocular motions intact. Lids and jr8 lashes normal. Conjunctiva and sclera are non-icteric and not injected. Cornea within normal limits. Periorbital areas with no swelling, redness, or edema. ENT: Nares patent. No nasal discharge, no septal abnormalities noted. Tympanic membranes are normal and external auditory canals are clear. Oropharynx with no redness, swelling, or masses, exudates, or evidence of obstruction, uvula midline. Mucous membranes moist. Neck: Trachea midline, no thyromegaly or masses palpated, and no cervical lymphadenopathy. Supple, full range of motion without nuchal rigidity, or vertebral point tenderness. No Meningismus. Chest/axilla: Normal chest wall appearance and motion. Nontender with no deformity. No lesions are appreciated. Cardiovascular: Regular rate and rhythm with a normal S1 and S2. No gallops, murmurs, or rubs. Normal PMI, no JVD. No pulse deficits. Respiratory: Lungs have equal breath sounds bilaterally, clear to auscultation and percussion. No rales, rhonchi or wheezes noted. No increased work of breathing, no retractions or nasal flaring. Abdomen/GI: Soft, non-tender, with normal bowel sounds. No distension or tympany. No guarding or rebound. No evidence of tenderness throughout. Skin: Warm, dry with normal turgor. Normal color with no rashes, no lesions, and no evidence of cellulitis. MS/ Extremity: Pulses equal, no cyanosis. Neurovascular intact. Full, normal range of motion. Neuro: Awake and alert, GCS 15, oriented to person, place, time, and situation. Cranial nerves II-XII grossly intact. Motor strength 5/5 in all extremities. Sensory grossly intact. Cerebellar exam normal. Normal gait. 11:13 Back: pain, that is moderate, of the right subscapular area, right mid back and right low back, ROM is painful, normal spinal alignment noted, CVA tenderness, is absent, vertebral tenderness, is not appreciated, muscle spasm, is appreciated in the left low back, left mid back, right mid back and right low back. Vital Signs: 10:45 BP 133 / 81; Pulse 76; Resp 17; Temp 97.6(TE); Pulse Ox 96% on R/A; Height 5 ft. 11 in. ss (180.34 cm); Pain 10/10; 12:00 BP 128 / 75; Pulse 68; Resp 18; Pulse Ox 99% on R/A; Pain 6/10; em MDM: 10:54 Patient medically screened. jr8 12:06 Data reviewed: vital signs, nurses notes, and as a result, I will discharge patient. jr8 Data interpreted: Pulse oximetry: on room air is 96 %. Interpretation: normal. Counseling: I had a detailed discussion with the patient and/or guardian regarding: the historical points, exam findings, and any diagnostic results supporting the discharge/admit diagnosis, the need for outpatient follow up, a family practitioner, to return to the emergency department if symptoms worsen or persist or if there are any questions or concerns that arise at home. Response to treatment: the patient's symptoms have markedly improved after treatment. 11/21 11:06 Order name: Urine Dipstick--Ancillary (enter results) eb Administered Medications: 11:30 Drug: Flexeril 10 mg Route: PO; em 11:59 Follow up: Response: No adverse reaction; Pain is decreased em 11:30 Drug: TORadol 60 mg Route: IM; Site: right gluteus; em 11:59 Follow up: Response: No adverse reaction; Pain is decreased em 11:30 Drug: [place] (7.5 mg-325 mg) 1 tabs Route: PO; em 12:00 Follow up: Response: No adverse reaction; Pain is decreased em Disposition: 15:35 Co-signature as Attending Physician, Sang Kinsey MD I agree with the assessment and kdr plan of care. Disposition: 11/21/18 12:07 Discharged to Home. Impression: Muscle spasm of back. - Condition is Stable. - Discharge Instructions: Back Pain, Adult, Back Exercises, [id number], Heat Therapy. - Prescriptions for Ibuprofen 800 mg Oral Tablet - take 1 tablet by ORAL route every 12 hours As needed take with food; 20 tablet. Cyclobenzaprine 10 mg Oral Tablet - take 1 tablet by ORAL route every 8 hours As needed; 30 tablet. - Work release form, Medication Reconciliation Form, Thank You Letter, Antibiotic Education, Prescription Opioid Use form. - Follow up: Private Physician; When: 5 - 6 days; Reason: Recheck today's complaints, Continuance of care, Re-evaluation by your physician. - Problem is new. - Symptoms have improved. Signatures: Dispatcher [employer] Sang Walker MD MD kdr Titi Bueno, SENIOR EDUCATION SPECIALIST SENIOR EDUCATION SPECIALIST em Ailyah Vazquez RN RN Gen Huff PA PA jr8 Corrections: (The following items were deleted from the chart) 12:21 12:07 11/21/2018 12:07 Discharged to Home. Impression: Muscle spasm of back. Condition em is Stable. Forms are Medication Reconciliation Form, Thank You Letter, Antibiotic Education, Prescription Opioid Use. Follow up: Private Physician; When: 5 - 6 days; Reason: Recheck today's complaints, Continuance of care, Re-evaluation by your physician. Problem is new. Symptoms have improved. jr8
[2018-11-21 12:44] LABS: Urine Blood NEGATIVE (NEG); Urine Glucose NEGATIVE (NEG); Urine Protein NEGATIVE (NEG); Urine pH 5.5 (5.0-7.0)
== END 2018-11-21 12:21 | disposition home or self-care (01) ==
LOC: ER 10:31
DX: M62.830 Muscle spasm of back (principal); Z72.0 Tobacco use
CPT/HCPCS: 81003; 96372; 99283

== ENCOUNTER 2019-01-02 16:17 | Emergency (ER) | payer SELFPAY ==
[2019-01-02] MEDS ORDERED: NA CHLORIDE 0.9% 1,000 ML ONE ×2 (17:11→19:59)
[2019-01-02] MEDS ORDERED: MORPHINE 2 MG/ML SYR ONE ×2 (17:11→21:58)
[2019-01-02] MEDS ORDERED: ONDANSETRON 4 MG/2 ML VIAL ONE (17:11)
[2019-01-02 17:19] LABS: Absolute Lymphocytes (CBC) 2.4 K/uL (0.7-4.9); Absolute Monocytes 0.9 K/uL (0.1-1.3); Absolute Neutrophil 15.3 K/uL (1.8-8.0); Basophils % 0.5 % (0-1.3); Eosinophils % 0.3 % (0-4.4); Lymphocytes % 12.9 % (15.3-44.8); MPV 7.4 fL (7.6-11.3); Monocytes % 4.9 % (3.3-12.3); RBC Red Blood Cell Count 5.69 M/uL (4.33-5.43)
[2019-01-02 17:36] LABS: ALT/SGPT 49 U/L (12-78); AST/SGOT 22 U/L (15-37); Albumin 4.9 g/dL (3.4-5.0); Alkaline Phosphatase 76 U/L (45-117); BUN Blood Urea Nitrogen 20 mg/dL (7-18); Bicarbonate 27 mmol/L (21-32); Bilirubin Direct < 0.1 mg/dL (0-0.2); Bilirubin Total 0.4 mg/dL (0.2-1.0); Glucose Level 140 mg/dL (74-106); Lipase 177 U/L (73-393); Potassium 4.2 mmol/L (3.5-5.1); Protein, Total 9.1 g/dL (6.4-8.2); Sodium Level 139 mmol/L (136-145)
--- NOTE | 2019-01-02 19:22 | RAD REPORT ---
EXAM DESCRIPTION: CT - Abdomen Pelvis W Contrast - 01/02/2019 6:50 pm CLINICAL HISTORY: Abdominal pain, nausea, vomiting and diarrhea COMPARISON: CT study December 2017 TECHNIQUE: Biphasic, helical CT imaging of the abdomen and pelvis was performed following 100 ml non -ionic IV contrast. Oral contrast was given approximately 2 hours before the examination. Sagittal an d coronal reformatted images generated and reviewed. All CT scans are performed using dose optimization technique as appropriate and may include automated exposure control or mA/KV adjustment according to patient size. FINDINGS: No suspicious findings in the lung bases. The liver, spleen, and pancreas show no focal findings. Diffuse fatty infiltration of the liver is pr esent. No gallbladder or biliary tree abnormality. Symmetric renal function is seen with no hydronephrosis or suspicious renal mass. No pyelonephritis o r acute parenchymal process. Urinary bladder is contracted. Prostate gland and seminal vesicles are n ormal. No adrenal abnormalities. Stomach is filled but not dilated by oral contrast. No gastric wall thickening or mass. No gastric ou tlet obstruction. The small amount of contrast is reached the proximal small bowel. Most contrast rem ains within the stomach. Prominent but nondilated small bowel loops are present. No wall thickening o r mass. The appendix is normal. No acute colon finding. No free air, free fluid or inflammatory stran ding. No mass or bulky lymphadenopathy. Bilateral fat filled inguinal hernias are present. No suspicious bony findings. No acute vascular finding. Bony degenerative change seen without an acute finding identified. IMPRESSION: Mild prominence of the small bowel loops without obstruction. Most of the oral contrast is retained within the stomach. Findings are most likely a nonspecific enteritis with gastroparesis. No free air or other surgically emergent finding.
[2019-01-02 19:40] LABS: Urine Blood NEGATIVE (NEG); Urine Glucose NEGATIVE (NEG); Urine Protein NEGATIVE (NEG); Urine Specific Gravity 1.025 (1.005-1.030)
[2019-01-02] MEDS ORDERED: DICYCLOMINE HCL 10 MG CAP ONE (19:59)
--- NOTE | 2019-01-02 20:30 | ER ---
Nurse's Notes [facility] Name: Avel Yen Jr Age: 48 yrs Sex: Male : 1970 Arrival Date: 01/02/2019 Time: 16:19 Bed 13 Private MD: Diagnosis: Nausea and vomiting;Diarrhea, unspecified Presentation: 01/02 16:20 Presenting complaint: EMS states: DIFFUSE ABDOMINAL PAIN WITH NAUSEA, VOMITING AND bp DIARRHEA. Transition of care: patient was not received from another setting of care. Onset of symptoms was January 02, 2019 at 08:00. Risk Assessment: Do you want to hurt yourself or someone else? Patient reports no desire to harm self or others. Initial Sepsis Screen: Does the patient meet any 2 criteria? HR > 90 bpm. Does the patient have a suspected source of infection? Yes: Acute abdominal pain. Care prior to arrival: None. 16:20 Method Of Arrival: EMS: [facility] bp 16:20 Acuity: DAYANARA 3 bp Triage Assessment: 16:22 General: Appears in no apparent distress. uncomfortable, Behavior is cooperative, bp appropriate for age, anxious. Pain: Complains of pain in abdomen. EENT: No deficits noted. Neuro: Level of Consciousness is awake, alert, obeys commands, Oriented to person, place, time, situation, Appropriate for age. Cardiovascular: No deficits noted. Respiratory: Airway is patent Respiratory effort is even, unlabored, Respiratory pattern is regular, symmetrical. GI: Bowel sounds present X 4 quads. Abdomen is tender to palpation X 4 quads. Reports diarrhea, nausea, vomiting. : No signs and/or symptoms were reported regarding the genitourinary system. Derm: No deficits noted. Musculoskeletal: Circulation, motion, and sensation intact. Range of motion: intact in all extremities. Historical: - Allergies: 16:22 No Known Allergies; bp - Home Meds: 16:22 None [Active]; bp - PMHx: 16:22 None; bp - PSHx: 16:22 None; bp - Immunization history:: Adult Immunizations up to date. - Social history:: Smoking status: Patient/guardian denies using tobacco. - Ebola Screening: : Patient negative for fever greater than or equal to 101.5 degrees Fahrenheit, and additional compatible Ebola Virus Disease symptoms Patient denies exposure to infectious person Patient denies travel to an Ebola-affected area in the 21 days before illness onset No symptoms or risks identified at this time. Screenin:28 Abuse screen: Denies threats or abuse. Denies injuries from another. Nutritional bp screening: No deficits noted. Tuberculosis screening: No symptoms or risk factors identified. Fall Risk None identified. Assessment: 16:27 General: SEE TRIAGE NOTE. bp 17:48 Reassessment: CT PENDING, VS STABLE ON MONITOR. bp 18:56 Reassessment: PT RETURNED FROM CT. bp 19:05 Reassessment: Patient appears in no apparent distress at this time. Patient and/or jb4 family updated on plan of care and expected duration. Pain level reassessed. Patient is alert, oriented x 3, equal unlabored respirations, skin warm/dry/pink. 20:00 Reassessment: Patient appears in no apparent distress at this time. Patient and/or jb4 family updated on plan of care and expected duration. Pain level reassessed. Patient is alert, oriented x 3, equal unlabored respirations, skin warm/dry/pink. 20:55 Reassessment: Pt reports increased pain and nausea and vomiting, provider notified, see jb4 MAR for orders. Pt failed PO challenge, holding pt prior to discharge for further monitoring. 21:00 Reassessment: Patient appears in no apparent distress at this time. Patient and/or jb4 family updated on plan of care and expected duration. Pain level reassessed. Patient is alert, oriented x 3, equal unlabored respirations, skin warm/dry/pink. 21:55 Reassessment: Patient and/or family updated on plan of care and expected duration. Pain jb4 level reassessed. Patient is alert, oriented x 3, equal unlabored respirations, skin warm/dry/pink. Pt reports a drecrease in nausea and vomiting, increase in pain provider notified, see MAR for orders. 22:45 Reassessment: Patient appears in no apparent distress at this time. Patient and/or jb4 family updated on plan of care and expected duration. Pain level reassessed. Patient is alert, oriented x 3, equal unlabored respirations, skin warm/dry/pink. Pt discharged home with significant other. Patient states feeling better. Vital Signs: 16:22 BP 142 / 101; Pulse 103; Resp 20; Temp 98; Pulse Ox 99% ; Weight 108.86 kg; Height 5 bp ft. 11 in. (180.34 cm); 17:08 BP 119 / 79; Pulse 85; Resp 16; Pulse Ox 97% ; bp 17:47 BP 138 / 87; Pulse 78; Resp 14; Pulse Ox 96% ; bp 19:10 BP 141 / 80; Pulse 85; Resp 16; Pulse Ox 97% on R/A; jb4 20:00 BP 150 / 77; Pulse 83; Resp 20; Pulse Ox 100% on R/A; jb4 21:00 BP 146 / 86; Pulse 84; Resp 20; Pulse Ox 99% on R/A; jb4 22:15 BP 107 / 83; Pulse 87; Resp 16; Pulse Ox 98% on R/A; jb4 16:22 Body Mass Index 33.47 (108.86 kg, 180.34 cm) bp ED Course: 16:19 Patient arrived in ED. bp 16:21 Triage completed. bp 16:22 Kenn Scanlon PA is PHCP. jm 16:22 Sang Kinsey MD is Attending Physician. jmm 16:22 Arm band placed on. bp 16:27 Medhat Elizabeth PA is PHCP. cp 16:45 Inserted saline lock: 18 gauge in right antecubital area, using aseptic technique. bp Blood collected. 16:48 Yariel Meyer, RN is Primary Nurse. bp 17:07 Patient has correct armband on for positive identification. Placed in gown. Bed in low bp position. Call light in reach. Side rails up X2. 18:35 Urine collected: clean catch specimen, clear. dh3 18:50 CT Abd/Pelvis - W/Contrast: give oral contrast In Process Unspecified. EDMS 19:10 Pillow given. jb4 20:27 Primary Nurse role handed off by Yariel Meyer, RN ed1 20:54 Nick Hou, JUNITO is Primary Nurse. jb4 22:30 No provider procedures requiring assistance completed. IV discontinued, intact, jb4 bleeding controlled. Administered Medications: 16:45 Drug: NS 0.9% 1000 ml Route: IV; Rate: 1 bolus; Site: right antecubital; bp 16:45 Drug: Zofran 4 mg Route: IVP; Site: right antecubital; bp 17:47 Follow up: Response: Nausea is decreased bp 16:45 Drug: morphine 2 mg Route: IVP; Site: right antecubital; bp 17:47 Follow up: Response: Pain is decreased bp 20:06 Drug: NS 0.9% 1000 ml Route: IV; Rate: 1 bolus; Site: right antecubital; jb4 20:06 Drug: Bentyl 20 mg Route: PO; jb4 20:30 Follow up: Response: No adverse reaction; Pain is unchanged, physician notified jb4 20:50 Drug: Phenergan 25 mg Route: IVP; Site: right antecubital; jb4 21:00 Follow up: Response: No adverse reaction; Nausea is decreased; Vomiting decreased jb4 21:05 Drug: TORadol 30 mg Route: IVP; Site: right antecubital; jb4 22:43 Follow up: Response: No adverse reaction; Pain is decreased jb4 21:55 Drug: morphine 2 mg Route: IVP; Site: right antecubital; jb4 22:43 Follow up: Response: No adverse reaction; Pain is decreased jb4 Point of Care Testing: Blood Glucose: 19:35 Blood Glucose: 123 mg/dL; jb4 Ranges: Outcome: 20:29 Discharge ordered by MD. cp 22:30 Discharged to home ambulatory, with significant other. jb4 22:30 Condition: stable 22:30 Discharge instructions given to patient, significant other, Instructed on discharge instructions, follow up and referral plans. medication usage, Demonstrated understanding of instructions, follow-up care, medications, Prescriptions given X 3. 22:47 Patient left the ED. jb4 Signatures: Dispatcher [employer] EDMS Kenn Scanlon PA PA jmm Riggs, Erika RN RN ed1 Medhat Elizabeth PA PA cp Bryson, James RN RN jb4 Bibi Ferrer 3 Yariel Meyer RN RN bp Corrections: (The following items were deleted from the chart) 22:46 20:55 Reassessment: Pt reports increased pain and nausea and vomiting, provider steffanie notified, see MAR for orders. jb4
--- NOTE | 2019-01-02 20:30 | EDPHYS ---
Physician Documentation [facility] Name: Avel Yen Jr Age: 48 yrs Sex: Male : 1970 Arrival Date: 01/02/2019 Time: 16:19 Bed 13 Private MD: ED Physician Sang Kinsey HPI: 01/02 16:35 This 48 yrs old Male presents to ER via EMS with complaints of Abdominal Pain, cp Nausea/Vomiting/Diarrhea. 16:35 The patient presents with abdominal pain that is diffuse. cp 16:35 Onset: The symptoms/episode began/occurred this morning. The symptoms do not radiate. cp Associated signs and symptoms: Pertinent positives: anorexia, diarrhea, vomiting, Pertinent negatives: blood in stools, chest pain, constipation, dysuria, fever, testicular pain, vomiting blood. Historical: - Allergies: 16:22 No Known Allergies; bp - Home Meds: 16:22 None [Active]; bp - PMHx: 16:22 None; bp - PSHx: 16:22 None; bp - Immunization history:: Adult Immunizations up to date. - Social history:: Smoking status: Patient/guardian denies using tobacco. - Ebola Screening: : Patient negative for fever greater than or equal to 101.5 degrees Fahrenheit, and additional compatible Ebola Virus Disease symptoms Patient denies exposure to infectious person Patient denies travel to an Ebola-affected area in the 21 days before illness onset No symptoms or risks identified at this time. ROS: 16:45 Constitutional: Negative for body aches, chills, fever. cp 16:45 Eyes: Negative for injury, pain, redness, and discharge. cp 16:45 ENT: Negative for drainage from ear(s), ear pain, sore throat, difficulty swallowing, difficulty handling secretions. 16:45 Cardiovascular: Negative for chest pain, palpitations. 16:45 Respiratory: Negative for cough, shortness of breath, wheezing. 16:45 Abdomen/GI: Positive for abdominal pain, nausea, vomiting, diarrhea, Negative for constipation, hematemesis, black/tarry stool, rectal bleeding. 16:45 Back: Negative for pain at rest, pain with movement. 16:45 : Negative for urinary symptoms, testicular pain 16:45 Skin: Negative for rash. 16:45 Neuro: Negative for altered mental status, headache. 16:45 All other systems are negative. Exam: 16:50 Head/Face: Normocephalic, atraumatic. cp 16:50 Constitutional: The patient appears in no acute distress, alert, awake, non-diaphoretic, non-toxic, well developed, well nourished, uncomfortable. 16:50 Eyes: Periorbital structures: appear normal, Conjunctiva: normal, no exudate, no injection, Sclera: no appreciated abnormality, Lids and lashes: appear normal, bilaterally. 16:50 ENT: External ear(s): are unremarkable, Ear canal(s): are normal, clear, TM's: bulging, is not appreciated, dullness, bilaterally, erythema, is not appreciated, bilaterally, Nose: is normal, Mouth: Lips: moist, Oral mucosa: pink and intact, moist, Posterior pharynx: is normal, airway is patent, no erythema, no exudate. 16:50 Neck: ROM/movement: is normal, is supple, without pain, no range of motions limitations, no nuchal rigidity. 16:50 Chest/axilla: Inspection: normal, Palpation: is normal, no crepitus, no tenderness. 16:50 Cardiovascular: Rate: tachycardic, Rhythm: regular. 16:50 Respiratory: the patient does not display signs of respiratory distress, Respirations: normal, no use of accessory muscles, no retractions, no splinting, no tachypnea, labored breathing, is not present, Breath sounds: are clear throughout, no decreased breath sounds, no stridor, no wheezing. 16:50 Abdomen/GI: Inspection: abdomen appears normal, Bowel sounds: active, all quadrants, Palpation: soft, in all quadrants, moderate abdominal tenderness, in all quadrants, voluntary guarding, is elicited in all quadrants. 16:50 Back: pain, is absent, ROM is normal. 16:50 Neuro: Orientation: is normal, Mentation: is normal, Cerebellar function: is grossly normal, Motor: moves all fours, strength is normal, Sensation: is normal. Vital Signs: 16:22 BP 142 / 101; Pulse 103; Resp 20; Temp 98; Pulse Ox 99% ; Weight 108.86 kg; Height 5 bp ft. 11 in. (180.34 cm); 17:08 BP 119 / 79; Pulse 85; Resp 16; Pulse Ox 97% ; bp 17:47 BP 138 / 87; Pulse 78; Resp 14; Pulse Ox 96% ; bp 19:10 BP 141 / 80; Pulse 85; Resp 16; Pulse Ox 97% on R/A; jb4 20:00 BP 150 / 77; Pulse 83; Resp 20; Pulse Ox 100% on R/A; jb4 21:00 BP 146 / 86; Pulse 84; Resp 20; Pulse Ox 99% on R/A; jb4 22:15 BP 107 / 83; Pulse 87; Resp 16; Pulse Ox 98% on R/A; jb4 16:22 Body Mass Index 33.47 (108.86 kg, 180.34 cm) bp MDM: 16:32 Patient medically screened. cp 20:25 Data reviewed: vital signs, nurses notes, lab test result(s), radiologic studies, CT cp scan. 20:25 Differential diagnosis: appendicitis, cholecystitis, Cholelithiasis, diverticulitis, cp gastritis, non-specific abd pain, pancreatitis, Ureterolithiasis, urinary tract infection, colitis. Response to treatment: the patient's symptoms have markedly improved after treatment, patient resting in exam room. 04 16:29 Order name: Basic Metabolic Panel; Complete Time: 17:55 cp 01/02 16:29 Order name: CBC with Diff; Complete Time: 17:55 cp 05 19:43 Interpretation: Normal except: WBC 18.7; RBC 5.69; HCT 50.0. cp 0405 16:29 Order name: Creatinine for Radiology; Complete Time: 17:55 cp 01/02 16:29 Order name: Hepatic Function; Complete Time: 17:55 cp 04 16:29 Order name: Lipase; Complete Time: 17:55 cp 0405 18:35 Order name: Urine Dipstick--Ancillary (enter results); Complete Time: 19:43 eb 04 16:29 Order name: CT Abd/Pelvis - W/Contrast: give oral contrast; Complete Time: 19:43 cp 04 16:29 Order name: IV Saline Lock; Complete Time: 17:07 cp 01/02 16:29 Order name: Labs collected and sent; Complete Time: 17:07 cp 01/02 16:29 Order name: Urine Dipstick-Ancillary (obtain specimen); Complete Time: 18:28 cp 04 16:29 Order name: NPO; Complete Time: 16:48 cp 01/02 19:44 Order name: PO challenge; Complete Time: 20:09 cp 01/02 21:41 Order name: PO challenge; Complete Time: 21:55 cp Administered Medications: 16:45 Drug: NS 0.9% 1000 ml Route: IV; Rate: 1 bolus; Site: right antecubital; bp 16:45 Drug: Zofran 4 mg Route: IVP; Site: right antecubital; bp 17:47 Follow up: Response: Nausea is decreased bp 16:45 Drug: morphine 2 mg Route: IVP; Site: right antecubital; bp 17:47 Follow up: Response: Pain is decreased bp 20:06 Drug: NS 0.9% 1000 ml Route: IV; Rate: 1 bolus; Site: right antecubital; jb4 20:06 Drug: Bentyl 20 mg Route: PO; jb4 20:30 Follow up: Response: No adverse reaction; Pain is unchanged, physician notified jb4 20:50 Drug: Phenergan 25 mg Route: IVP; Site: right antecubital; jb4 21:00 Follow up: Response: No adverse reaction; Nausea is decreased; Vomiting decreased jb4 21:05 Drug: TORadol 30 mg Route: IVP; Site: right antecubital; jb4 22:43 Follow up: Response: No adverse reaction; Pain is decreased jb4 21:55 Drug: morphine 2 mg Route: IVP; Site: right antecubital; jb4 22:43 Follow up: Response: No adverse reaction; Pain is decreased jb4 Point of Care Testing: Blood Glucose: 19:35 Blood Glucose: 123 mg/dL; jb4 Ranges: Critical Glucose Levels:Adult <50 mg/dl or >400 mg/dl <40 mg/dl or >180 mg/dl Disposition: 01/02/19 20:29 Discharged to Home. Impression: Nausea and vomiting, Diarrhea, unspecified. - Condition is Stable. - Discharge Instructions: Food Choices to Help Relieve Diarrhea, Adult, Dehydration, Adult, Diarrhea, Adult, Nausea and Vomiting, Adult. - Prescriptions for Bentyl 20 mg Oral Tablet - take 1 tablet by ORAL route every 6 hours As needed; 30 tablet. Phenergan 25 mg Rectal Suppository - insert 1 suppository by RECTAL route every 6 hours As needed; 12 suppository. promethazine 25 mg Oral Tablet - take 1 tablet by ORAL route every 6 hours As needed; 20 tablet. - Medication Reconciliation Form, Thank You Letter, Antibiotic Education, Prescription Opioid Use form. - Follow up: Private Physician; When: 2 - 3 days; Reason: Recheck today's complaints. - Problem is new. - Symptoms have improved. Addendum: 01/05/2019 07:27 Co-signature as Attending Physician, Sang Kinsey MD I agree with the assessment and k dr plan of care. Signatures: Dispatcher [employer] EDFL Sang Kinsey MD MD kdr Medhat Elizabeth PA PA cp Nick Hou, RN RN jb4 Yariel Meyer RN RN bp Corrections: (The following items were deleted from the chart) 01/02 22:47 20:29 01/02/2019 20:29 Discharged to Home. Impression: Nausea and vomiting; Diarrhea, jb4 unspecified. Condition is Stable. Forms are Medication Reconciliation Form, Thank You Letter, Antibiotic Education, Prescription Opioid Use. Follow up: Private Physician; When: 2 - 3 days; Reason: Recheck today's complaints. Problem is new. Symptoms have improved. cp 01/03 16:53 01/02 16:35 The patient presents with abdominal pain cp cp 01/03 17:26 01/02 20:28 ED course: VSS. Patient resting in exam room. Vomiting resolved and patient cp tolerating po fluids. cp
[2019-01-02] MEDS ORDERED: NA CHLORIDE 0.9% 500 ML ONE (20:57)
[2019-01-02] MEDS ORDERED: PROMETHAZINE 25 MG/ML VIAL ONE (20:57)
[2019-01-02] MEDS ORDERED: KETOROLAC 30 MG/ML INJ ONE (21:10)
[2019-01-03 00:28] VITALS: TEMP 98
[2019-01-03 00:35] VITALS: BP 107/83; O2SAT 98
== END 2019-01-02 22:47 | disposition home or self-care (01) ==
LOC: ER 16:17
DX: R11.2 Nausea with vomiting, unspecified (principal); R19.7 Diarrhea, unspecified; R10.9 Unspecified abdominal pain
CPT/HCPCS: 36415; 74177; 80048; 80076; 81003; 82962; 83690; 85025; 96374; 96375; 99284; J2270; J2405; J2550; J7030; Q9967

== ENCOUNTER 2019-01-04 19:11 | Inpatient (IN) | payer SELFPAY ==
[2019-01-04] MEDS ORDERED: MORPHINE 4 MG/ML SYR ONE ×2 (19:37→21:46)
[2019-01-04] MEDS ORDERED: ONDANSETRON 4 MG/2 ML VIAL ONE (19:38)
[2019-01-04 19:41] LABS: Absolute Lymphocytes (CBC) 1.4 K/uL (0.7-4.9); Absolute Monocytes 0.6 K/uL (0.1-1.3); Absolute Neutrophil 5.5 K/uL (1.8-8.0); Basophils % 0.3 % (0-1.3); Eosinophils % 1.5 % (0-4.4); Hematocrit 45.6 % (39.6-49.0); Lymphocytes % 18.6 % (15.3-44.8); MPV 7.3 fL (7.6-11.3); Monocytes % 7.3 % (3.3-12.3); RBC Red Blood Cell Count 5.21 M/uL (4.33-5.43)
[2019-01-04 20:00] LABS: Albumin 4.1 g/dL (3.4-5.0); Bilirubin Direct 0.1 mg/dL (0-0.2); Bilirubin Total 0.4 mg/dL (0.2-1.0); Potassium 3.6 mmol/L (3.5-5.1); Protein, Total 8.2 g/dL (6.4-8.2)
[2019-01-04] MEDS ORDERED: PROMETHAZINE 25 MG/ML VIAL ONE (21:12)
[2019-01-04 21:35] LABS: Urine Blood TRACE (NEG); Urine Glucose NEGATIVE (NEG); Urine Protein TRACE (NEG); Urine Specific Gravity 1.025 (1.005-1.030); Urine pH 5.5 (5.0-7.0)
[2019-01-04] MEDS ORDERED: METOCLOPRAMIDE 10 MG/2mL INJ ONE (22:54)
[2019-01-04] MEDS ORDERED: DIPHENHYDRAMINE 50 MG/ML VIAL ONE (22:54)
--- NOTE | 2019-01-04 23:32 | EDPHYS ---
Physician Documentation [facility] Name: Avel Yen Jr Age: 48 yrs Sex: Male : 1970 Arrival Date: 01/04/2019 Time: 19:12 Bed 20 Private MD: ED Physician Medhat Saldana HPI: 01/04 19:15 This 48 yrs old Male presents to ER via EMS with complaints of Abdominal Pain. jmm 19:15 The patient presents with abdominal pain. Onset: The symptoms/episode began/occurred jmm gradually, 2 day(s) ago. The symptoms do not radiate. Associated signs and symptoms: Pertinent positives: nausea and vomiting, diarrhea. The symptoms are described as achy. This is a 48 year old male with no chronic medical conditions that presents to the ED with complaints of abdominal pain, vomiting, diarrhea. Patient states that he was discharged from the ED with similar symptoms. . Patient localizes pain to the lower abdomen. d. Historical: - Allergies: 19:17 No Known Allergies; ea - Home Meds: 19:17 None [Active]; ea - PMHx: 19:17 None; ea - PSHx: 19:17 None; ea - Immunization history:: Adult Immunizations up to date. - Social history:: Smoking status: Patient/guardian denies using tobacco, but has a distant history of tobacco abuse. - Ebola Screening: : No symptoms or risks identified at this time. ROS: 19:15 Constitutional: Negative for fever, chills, and weight loss, Cardiovascular: Negative jm for chest pain, palpitations, and edema, Respiratory: Negative for shortness of breath, cough, wheezing, and pleuritic chest pain. 19:15 Abdomen/GI: Positive for abdominal pain, vomiting, diarrhea. 19:15 All other systems are negative. Exam: 19:15 Head/Face: atraumatic. Eyes: EOMI, no conjunctival erythema appreciated ENT: Moist jmm Mucus Membranes Neck: Trachea midline, Supple Chest/axilla: Normal chest wall appearance and motion. Cardiovascular: Regular rate and rhythm. No edema appreciated Respiratory: Normal respirations, no respiratory distress appreciated 19:15 Skin: General appearance color normal MS/ Extremity: Moves all extremities, no obvious deformities appreciated, no edema noted to the lower extremities Neuro: Awake and alert, normal gait Psych: Behavior is normal, Mood is normal, Patient is cooperative and pleasant 19:15 Constitutional: The patient appears in no acute distress, alert, awake. 19:15 Abdomen/GI: Inspection: abdomen appears normal, Bowel sounds: normal, Palpation: soft, moderate abdominal tenderness, in the suprapubic area, right lower quadrant and left lower quadrant. Vital Signs: 19:10 BP 145 / 68; Pulse 87; Resp 19; Temp 98.8; Pulse Ox 96% on R/A; Weight 95.25 kg; Height ea 5 ft. 11 in. (180.34 cm); Pain 8/10; 20:26 BP 129 / 66; Pulse 104; Resp 18 S; Pulse Ox 96% on R/A; cc3 21:20 BP 140 / 92; Pulse 101; Resp 18 S; Pulse Ox 98% on R/A; cc3 22:10 BP 140 / 99; Pulse 105; Resp 18 S; Pulse Ox 97% on R/A; cc3 23:12 BP 138 / 81; Pulse 105; Resp 19 S; Pulse Ox 97% on R/A; cc3 01/05 00:25 BP 132 / 87; Pulse 104; Resp 20 S; Pulse Ox 96% on R/A; cc3 01:16 BP 127 / 81; Pulse 104; Resp 19 S; Pulse Ox 97% on R/A; cc3 01/04 19:10 Body Mass Index 29.29 (95.25 kg, 180.34 cm) ea MDM: 01/04 19:15 Patient medically screened. flavia 22:39 Transition of care: After a detail discussion of the patient's case, care is [facility] transferred to Sarbjit Manuel NP. 23:30 Data reviewed: vital signs. Data interpreted: Pulse oximetry: on room air is 97 %. pm1 Interpretation: normal. Physician consultation: Blane Swain MD was called at 23:30, was contacted at 23:30, regarding consult, patient's condition, would like admission per Dr. Ariel Cruz MD. 23:32 Physician consultation: Ariel Cruz MD was contacted at 23:32, regarding admission, pm1 patient's condition, and will see patient in ED, shortly. 01/04 19:19 Order name: Basic Metabolic Panel; Complete Time: 20:13 [facility] 01/04 19:19 Order name: CBC with Diff; Complete Time: 19:59 [facility] 01/04 19:19 Order name: Creatinine for Radiology; Complete Time: 19:59 [facility] 01/04 19:19 Order name: Hepatic Function; Complete Time: 20:13 [facility] 01/04 19:19 Order name: Lipase; Complete Time: 20:13 [facility] 01/04 21:19 Order name: Urine Dipstick--Ancillary (enter results); Complete Time: 21:39 [facility] 01/04 19:19 Order name: CT Abd/Pelvis - Without Cont [facility] 01/05 00:00 Order name: CXR XRAY 3 01/04 19:19 Order name: IV Saline Lock; Complete Time: 19:39 [facility] 01/04 19:19 Order name: Labs collected and sent; Complete Time: 19:39 [facility] 01/04 23:30 Order name: NG Tube; Complete Time: 23:58 pm1 01/04 23:30 Order name: NPO; Complete Time: 23:58 pm1 Administered Medications: 19:32 Drug: Zofran 4 mg Route: IVP; Site: right antecubital; ea 20:10 Follow up: Response: No adverse reaction; Nausea is decreased cc3 19:33 Drug: morphine 4 mg Route: IVP; Site: right antecubital; ea 20:10 Follow up: Response: No adverse reaction; Pain is decreased cc3 21:02 Drug: Promethazine 12.5 mg Route: IVP; Site: right antecubital; cc3 21:50 Follow up: Response: No adverse reaction; Nausea is decreased; Vomiting decreased cc3 21:30 Drug: morphine 4 mg Route: IVP; Site: right antecubital; cc3 21:50 Follow up: Response: No adverse reaction; Pain is unchanged, physician notified cc3 22:40 Drug: Reglan 10 mg Route: IVP; Site: right antecubital; cc3 23:00 Follow up: Response: No adverse reaction cc3 22:45 Drug: diphenhydrAMINE 12.5 mg Route: IVP; Site: right antecubital; cc3 23:00 Follow up: Response: No adverse reaction cc3 23:35 Drug: NS 0.9% 1000 ml Route: IV; Rate: 125 ml/hr; Site: right antecubital; cc3 01/05 01:20 Follow up: Response: No adverse reaction; IV Status: Infusion continued upon admission; cc3 IV Intake: 250ml 00:25 Drug: morphine 2 mg Route: IVP; Site: right antecubital; cc3 01:00 Follow up: Response: No adverse reaction; Pain is decreased cc3 00:30 Drug: Zofran 4 mg Route: IVP; Site: right antecubital; cc3 01:00 Follow up: Response: No adverse reaction; Nausea is decreased; Vomiting decreased cc3 Disposition: 08:00 Co-signature as Attending Physician, Medhat Saldana MD I agree with the assessment and flavia plan of care. Disposition: 01/04/19 23:32 Hospitalization ordered by Ariel Cruz for Inpatient Admission. Preliminary diagnosis is Small bowel obstruction. - Bed requested for Telemetry/MedSurg (Inpatient). - Status is Inpatient Admission. cc3 - Condition is Stable. - Problem is new. - Symptoms have improved. UTI on Admission? No Signatures: Dispatcher [employer] EDMS Medhat Saldana MD MD cha Mickail, Joel, PA PA jmm Garcia, Cindy, RN RN Sarbjit Magdaleno, PATEL CERTIFIED [employer] pm1 Gail Haas RN RN ea Cordel, Charlene cc3 Corrections: (The following items were deleted from the chart) 01:10 01/04 23:32 Hospitalization Ordered by Ariel Cruz MD for Inpatient Admission. cg Preliminary diagnosis is Small bowel obstruction. Bed requested for Telemetry/MedSurg (Inpatient). Status is Inpatient Admission. Condition is Stable. Problem is new. Symptoms have improved. UTI on Admission? No. pm1 01/05 01:33 01:10 01/04/2019 23:32 Hospitalization Ordered by Ariel Cruz MD for Inpatient cc3 Admission. Preliminary diagnosis is Small bowel obstruction. Bed requested for Telemetry/MedSurg (Inpatient). Status is Inpatient Admission. Condition is Stable. Problem is new. Symptoms have improved. UTI on Admission? No. cg
--- NOTE | 2019-01-04 23:32 | ER ---
Nurse's Notes [facility] Name: Avel Yen Jr Age: 48 yrs Sex: Male : 1970 Arrival Date: 01/04/2019 Time: 19:12 Bed 20 Private MD: Diagnosis: Small bowel obstruction Presentation: 01/04 19:10 Presenting complaint: EMS states: EMS reports pt complaining of abdominal pain that ea starts in the epigastric area and goes to the middle of his abdomen, pt reports being seen here two days ago and has been having yellow diarrhea for the past two days. 19:10 Method Of Arrival: EMS: [facility] ea 19:10 Transition of care: patient was not received from another setting of care. Onset of ea symptoms was January 04, 2019. Risk Assessment: Do you want to hurt yourself or someone else? Patient reports no desire to harm self or others. Initial Sepsis Screen: Does the patient meet any 2 criteria? No. Patient's initial sepsis screen is negative. Does the patient have a suspected source of infection? Yes: Acute abdominal pain. Care prior to arrival: None. 19:10 Acuity: DAYANARA 3 ea Triage Assessment: 19:10 General: Appears uncomfortable, Behavior is cooperative. Pain: Complains of pain in ea epigastric area and umbilical area Pain currently is 9 out of 10 on a pain scale. Quality of pain is described as burning, Pain began 2-3 days ago. Is continuous. Neuro: Level of Consciousness is awake, alert, obeys commands, Oriented to person, place, time, situation. Cardiovascular: Patient's skin is warm and dry. Respiratory: Airway is patent Respiratory effort is even, unlabored, Respiratory pattern is regular, symmetrical. GI: Parent/caregiver reports the patient having diarrhea, epigastric pain, pt reports yellow watery stools. Historical: - Allergies: 19:17 No Known Allergies; ea - Home Meds: 19:17 None [Active]; ea - PMHx: 19:17 None; ea - PSHx: 19:17 None; ea - Immunization history:: Adult Immunizations up to date. - Social history:: Smoking status: Patient/guardian denies using tobacco, but has a distant history of tobacco abuse. - Ebola Screening: : No symptoms or risks identified at this time. Screenin:20 Abuse screen: Denies threats or abuse. Nutritional screening: No deficits noted. ea Tuberculosis screening: No symptoms or risk factors identified. Fall Risk None identified. Assessment: 19:10 General: see triage assessment. cc3 19:10 GI: Bowel sounds present X 4 quads. Abd is soft Abdomen is tender to palpation in left cc3 lower quadrant and right lower quadrant and suprapubic area. 20:00 Reassessment: Patient appears in no apparent distress at this time. Patient and/or cc3 family updated on plan of care and expected duration. Pain level reassessed. Patient is alert, oriented x 3, equal unlabored respirations, skin warm/dry/pink. Patient states he was relieved by the pain medicine with NRS of 6/10. 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 20:45 Reassessment: Pt assisted back to bed from the restroom, reports increased nausea, jb4 provider notified, see [facility] for orders. 21:50 Reassessment: Patient appears in no apparent distress at this time. Patient and/or cc3 family updated on plan of care and expected duration. Pain level reassessed. Patient is alert, oriented x 3, equal unlabored respirations, skin warm/dry/pink. Patient came back from CT scan department, awaiting result. Patient said he is still in pain and was not relieved since he was discharged from his last ER visit here two days ago, YUNIER Scanlon informed. 22:09 Reassessment: Patient appears in no apparent distress at this time. Patient and/or cc3 family updated on plan of care and expected duration. Pain level reassessed. Patient is alert, oriented x 3, equal unlabored respirations, skin warm/dry/pink. 23:00 Reassessment: Patient appears in no apparent distress at this time. Patient and/or cc3 family updated on plan of care and expected duration. Pain level reassessed. Patient is alert, oriented x 3, equal unlabored respirations, skin warm/dry/pink. Called patient's girlfriend Zakiya on her mobile number [phone] as per patient's request to inform her that the patient is still here in ER. 23:25 Reassessment: PATEL Schaffer said the patient will be for admission. Patient's girlfriend consuelo Sigala called and informed her that the patient is for admission and she said she'll come to see the patient tomorrow afternoon, patient informed. 23:30 Reassessment: Patient appears in no apparent distress at this time. Patient and/or cc3 family updated on plan of care and expected duration. Pain level reassessed. Patient is alert, oriented x 3, equal unlabored respirations, skin warm/dry/pink. NGT Fr. 16 inserted, patient tolerated well and brown gastric discharge aspirated, positive for gurgling sound auscultated and counterchecked with JUNITO Taylor. Attached to low intermittent suction as ordered. 01/05 00:20 Reassessment: Patient appears in no apparent distress at this time. Patient and/or cc3 family updated on plan of care and expected duration. Pain level reassessed. Patient is alert, oriented x 3, equal unlabored respirations, skin warm/dry/pink. Chest xray post-NGT insertion done and reviewed by PATEL Manuel. 01:20 Reassessment: Patient appears in no apparent distress at this time. Patient and/or cc3 family updated on plan of care and expected duration. Pain level reassessed. Patient is alert, oriented x 3, equal unlabored respirations, skin warm/dry/pink. Room available in 406, report called and handed over to JUNITO Bay for continuity of care and management. 01:30 Reassessment: Patient left ER for admission vitally stable by wheelchair escorted by ED cc3 carl Mcginnis. Patient denies pain at this time. Patient states feeling better. Patient states symptoms have improved. Vital Signs: 01/04 19:10 BP 145 / 68; Pulse 87; Resp 19; Temp 98.8; Pulse Ox 96% on R/A; Weight 95.25 kg; Height ea 5 ft. 11 in. (180.34 cm); Pain 8/10; 20:26 BP 129 / 66; Pulse 104; Resp 18 S; Pulse Ox 96% on R/A; cc3 21:20 BP 140 / 92; Pulse 101; Resp 18 S; Pulse Ox 98% on R/A; cc3 22:10 BP 140 / 99; Pulse 105; Resp 18 S; Pulse Ox 97% on R/A; cc3 23:12 BP 138 / 81; Pulse 105; Resp 19 S; Pulse Ox 97% on R/A; cc3 01/05 00:25 BP 132 / 87; Pulse 104; Resp 20 S; Pulse Ox 96% on R/A; cc3 01:16 BP 127 / 81; Pulse 104; Resp 19 S; Pulse Ox 97% on R/A; cc3 01/04 19:10 Body Mass Index 29.29 (95.25 kg, 180.34 cm) ea ED Course: 01/04 19:10 Arm band placed on right wrist. Patient placed in an exam room, on a stretcher, on ea pulse oximetry. 19:12 Patient arrived in ED. ea 19:13 Inserted saline lock: 20 gauge in right antecubital area, using aseptic technique. jb5 Blood collected. 19:14 Kenn Scanlon PA is PHCP. [facility] 19:14 Medhat Saldana MD is Attending Physician. [facility] 19:17 Triage completed. ea 19:18 Patient has correct armband on for positive identification. Placed in gown. Bed in low ea position. Call light in reach. Side rails up X 1. 19:39 Sheba Sierra is Primary Nurse. cc3 22:37 PHCP role handed off by Kenn Scanlon PA pm1 22:37 Sarbjit Manuel NP is PHCP. pm1 22:55 CT Abd/Pelvis - Without Cont In Process Unspecified. EDMS 23:31 Ariel Cruz MD is Hospitalizing Provider. pm1 23:40 NGT: inserted 16 Fr. via right nare. verified placement of air over stomach, verified cc3 return of gastric contents, Placement verified by X-ray, to intermittent suction. Returned gastric contents. Patient tolerated. 01/05 00:43 X-ray completed. Portable x-ray completed in exam room. Patient tolerated procedure kw well. 00:45 CXR XRAY In Process Unspecified. EDMS 01:20 No provider procedures requiring assistance completed. Patient admitted, IV remains in cc3 place. Administered Medications: 01/04 19:32 Drug: Zofran 4 mg Route: IVP; Site: right antecubital; ea 20:10 Follow up: Response: No adverse reaction; Nausea is decreased cc3 19:33 Drug: morphine 4 mg Route: IVP; Site: right antecubital; ea 20:10 Follow up: Response: No adverse reaction; Pain is decreased cc3 21:02 Drug: Promethazine 12.5 mg Route: IVP; Site: right antecubital; cc3 21:50 Follow up: Response: No adverse reaction; Nausea is decreased; Vomiting decreased cc3 21:30 Drug: morphine 4 mg Route: IVP; Site: right antecubital; cc3 21:50 Follow up: Response: No adverse reaction; Pain is unchanged, physician notified cc3 22:40 Drug: Reglan 10 mg Route: IVP; Site: right antecubital; cc3 23:00 Follow up: Response: No adverse reaction cc3 22:45 Drug: diphenhydrAMINE 12.5 mg Route: IVP; Site: right antecubital; cc3 23:00 Follow up: Response: No adverse reaction cc3 23:35 Drug: NS 0.9% 1000 ml Route: IV; Rate: 125 ml/hr; Site: right antecubital; cc3 01/05 01:20 Follow up: Response: No adverse reaction; IV Status: Infusion continued upon admission; cc3 IV Intake: 250ml 00:25 Drug: morphine 2 mg Route: IVP; Site: right antecubital; cc3 01:00 Follow up: Response: No adverse reaction; Pain is decreased cc3 00:30 Drug: Zofran 4 mg Route: IVP; Site: right antecubital; cc3 01:00 Follow up: Response: No adverse reaction; Nausea is decreased; Vomiting decreased cc3 Intake: 01:20 IV: 250ml; Total: 250ml. cc3 Outcome: 01/04 23:32 Decision to Hospitalize by Provider. pm1 01/05 01:20 Admitted to Tele accompanied by tech, via wheelchair, room 406, with chart, Report cc3 called to JUNITO Bay Condition: stable Instructed on the need for admit, Demonstrated understanding of instructions. 01:33 Patient left the ED. cc3 Signatures: Dispatcher [employer] EDMS Kenn Scanlon PA PA jmm Whitley, Kimberlee kw Marinas, Patrick, AUTOMOTIVE REFINISH TECHNICIAN AUTOMOTIVE REFINISH TECHNICIAN pm1 Nick Hou, RN RN jb4 Marie Pineda5 Gail Haas RN RN ea Cordel, Charlene cc3
[2019-01-04] MEDS ORDERED: NA CHLORIDE 0.9% 1,000 ML ONE (23:49)
[2019-01-05] MEDS ORDERED: ONDANSETRON 4 MG/2 ML VIAL ONE (00:36)
[2019-01-05] MEDS ORDERED: MORPHINE 2 MG/ML SYR ONE (00:36)
--- NOTE | 2019-01-05 01:06 | P.HP ---
Certification for Inpatient Patient admitted to: Inpatient With expected LOS: >2 Midnights Practitioner: I am a practitioner with admitting privileges, knowledge of patient current condition, hospital course, and medical plan of care. Services: Services provided to patient in accordance with Admission requirements found in Title 42 Section 412.3 of the Code of Federal Regulations Patient History Date of Service: 01/05/19 Reason for admission: SBO History of Present Illness: Mr Yen is a 48 years old male with history of obesity, who start about 3 days ago with diffuse abdominal pain, associated with nausea, vomiting and diarrhea. He came to ED 2 days ago, and was diagnosed with food poisoning, discharged home on oral antibiotics. However, his symptoms did not improved. He came to ED for further evaluation. 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 Lab work shows normal WBC count, CT abd/pelvis report SBO. Allergies No Known Allergies Allergy (Verified 01/22/18 19:42) Home Medications: Ciprofloxacin HCl [Cipro 500 MG Tablet] 500 mg PO DAILY #10 tab 01/24/18 metroNIDAZOLE [Flagyl] 500 mg PO Q8H #30 tablet 01/24/18 - Past Medical/Surgical History Diabetic: No -: enteritis Past Surgical History: Reviewed- Non-Contributory - Family History Family History: Reviewed- Non-Contributory - Social History Alcohol use: Yes Place of Residence: Home Review of Systems 10-point ROS is otherwise unremarkable Physical Examination - Physical Exam General: Alert, In no apparent distress HEENT: Atraumatic, PERRLA, Mucous membr. moist/pink, EOMI, Sclerae nonicteric Neck: Supple, 2+ carotid pulse no bruit, No LAD, Without JVD or thyroid abnormality Respiratory: Clear to auscultation bilaterally, Normal air movement Cardiovascular: Regular rate/rhythm, Normal S1 S2 Gastrointestinal: Hypoactive, Distended, Tenderness Musculoskeletal: No tenderness Integumentary: No rashes Neurological: Normal speech, Normal strength at 5/5 x4 extr, Normal tone, Normal affect Lymphatics: No axilla or inguinal lymphadenopathy - Studies Laboratory Data (last 24 hrs) 01/04/19 19:12: Creatinine 0.97 01/04/19 19:12: WBC 7.5 D, Hgb 15.3, Hct 45.6, Plt Count 278 D 01/04/19 19:12: Sodium 138, Potassium 3.6, BUN 13, Creatinine 0.99, Glucose 118 H, Total Bilirubin 0.4, AST 15, ALT 33, Alkaline Phosphatase 72, Lipase 165 Assessment and Plan - Problems (Diagnosis) (1) Obesity Current Visit: Yes Status: Acute Qualifiers: Obesity type: unspecified obesity type Obesity classification: unspecified obesity classification Serious obesity comorbidity presence: unspecified whether serious comorbidity present Qualified Code(s): E66.9 - Obesity, unspecified (2) SBO (small bowel obstruction) Onset Date: 01/23/18 Current Visit: No Status: Resolved - Plan Will admit the patient due to SBO, Keep NPO, start IV fluids, NGT placed. Dr Swain was consulted and will see the patient in AM. - Advance Directives Does patient have a Living Will: No Does patient have a Durable POA for Healthcare: No - Code Status/Comfort Care Code Status Assessed: Yes Code Status: Full Code
[2019-01-05] MEDS: NA CHLORIDE 0.9% 1,000 ML IV SCH ×3 (01:54→16:55)
[2019-01-05] MEDS ORDERED: ONDANSETRON 4 MG/2 ML VIAL IV PRN (01:54)
[2019-01-05 02:55] VITALS: BMI 35.2
[2019-01-05] MEDS ORDERED: KCL 20 MEQ/100 mL IVPB 20 MEQ/100 ML BAG IV SCH (07:00)
--- NOTE | 2019-01-05 08:17 | RAD REPORT ---
EXAM DESCRIPTION: RAD - Chest Single View - 01/05/2019 12:45 am CLINICAL HISTORY: NG tube placement, abdominal pain, small bowel obstruction COMPARISON: None. TECHNIQUE: AP portable chest image was obtained 0017 hours . FINDINGS: Nasogastric tube is in place with tip and side hole of the catheter in the proximal stomac h. Tube is well positioned. Lung zepeda are clear. Heart and vasculature are normal. No measurable pleural effusion and no pneumo thorax. No acute bony abnormality seen. No acute aortic findings suspected. IMPRESSION: No acute cardiopulmonary process. NG tube in good position.
--- NOTE | 2019-01-05 10:24 | RAD REPORT ---
EXAM DESCRIPTION: RAD - Abdomen Acute Series - 01/05/2019 10:14 am CLINICAL HISTORY: Small bowel Obstruction COMPARISON: Chest Single View dated 01/05/2019; Abdomen 1 View (KUB) dated 01/23/2018; Chest Pa And Lat (2 Views) dated 08/28/2017; Abdomen Pelvis Wo Contrast dated 01/04/2019; Abdomen Pelvis W Contrast dated 01/02/2019 FINDINGS: Mild linear opacities are present in the medial left lung base. Enteric tube descends into the stomach. The heart is normal in size. No pneumoperitoneum seen. Multiple dilated small bowel loops are seen in the central abdomen compatible with moderate mechanica l small-bowel obstruction. Findings appear similar to the comparative CT study. Oral contrast is seen in the colon, indicating complete obstruction is not present. IMPRESSION: Partial moderate grade mechanical small bowel obstruction is again seen. Findings appear similar to the comparative study.
--- NOTE | 2019-01-05 12:02 | RAD REPORT ---
EXAM DESCRIPTION: CT - Abdomen Pelvis Wo Contrast - 01/04/2019 10:54 pm CLINICAL HISTORY: The patient is 48 years old and is Male; oral contrast TECHNIQUE: Axial computed tomography images of the abdomen and pelvis without intravenous contrast. Sagittal and coronal reformatted images were created and reviewed. This CT exam was performed usi ng one or more of the following dose reduction techniques: automated exposure control, adjustment o f the mA and/or kV according to patient size, and/or use of iterative reconstruction technique. COMPARISON: CT abdomen and pelvis January 02, 2019. FINDINGS: LUNG BASES: Unremarkable. No mass. No consolidation. ABDOMEN: LIVER: There is a diffuse decrease in hepatic parenchymal density, consistent with fatty infiltr ation. The liver is prominent. GALLBLADDER AND BILE DUCTS: No calcified stones. No ductal dilation. PANCREAS: Unremarkable. No ductal dilation. SPLEEN: Unremarkable. ADRENALS: Unremarkable. No mass. KIDNEYS AND URETERS: No obstructing stones. No hydronephrosis. STOMACH AND BOWEL: The stomach is distended with food contents. The proximal small bowel is norm al in caliber. Multiple dilated small bowel loops are present throughout the abdomen. The very distal affected small bowel loops are inflamed a transition point is present at the level of the terminal i leum. Stool is present throughout the colon. PELVIS: APPENDIX: The appendix is normal in caliber without surrounding inflammation. BLADDER: Mild bladder wall thickening is present. No stones. REPRODUCTIVE: Unremarkable as visualized. ABDOMEN and PELVIS: INTRAPERITONEAL SPACE: Unremarkable. No free air. No significant fluid collection. BONES/JOINTS: No acute fracture. SOFT TISSUES: The soft tissues are normal. VASCULATURE: Unremarkable. No abdominal aortic aneurysm. LYMPH NODES: Shotty adenopathy is noted, specifically in the right lower quadrant. IMPRESSION: Findings consistent with a small bowel obstruction to the level of the terminal ileum. T he distal most affected small bowel loops are inflamed. Electronically signed by: Funmilayo Villagomez MD 01/04/2019 10:58 PM CDT Due to temporary technical issues with the PACS/Fluency reporting system, reports are being signed by the in house radiologist as a courtesy to ensure prompt reporting. The interpreting radiologist is f ully responsible for the content of the report.
[2019-01-05] MEDS: METRONIDAZOLE 500mg IVPB 500 MG/100 ML BAG IV SCH (16:41)
--- NOTE | 2019-01-05 17:03 | PN ---
Date of Progress Note: 01/05/2019 Subjective: Patient is seen and examined. Chart reviewed and case discussed with RN. Case also discussed with Dr. Swain. The patient is homeless, wants to eat, wants the NG tube out. I explained to him that he needs NG tube for decompression. Medications: List reviewed. Physical Examination: Vital Signs: Temperature 96, heart rate 85, blood pressure 136/66, respirations 18, O2 96% on room air. General: Awake, alert, and oriented x3, in some mild distress. Obese male. CV: S1 and S2. Regular rate and rhythm. Peripheral pulses present. Respiratory: Moving air well bilaterally, no wheezing. Gastrointestinal: Abdomen is soft. Minimal tenderness to palpation. No guarding or rigidity. Mild distention. Extremities: No clubbing, cyanosis, or edema. Neurologic: Nonfocal. Laboratory Data: Pending. Acute abdominal series personally reviewed, shows partial moderate grade mechanical small bowel obstruction is again seen. Findings appear similar to comparative study. Chest x-ray shows no acute cardiopulmonary process. NG tube in place. Assessment And Plan: A 48-year-old male with; 1. Small-bowel obstruction. Continue serial abdominal x-rays. Keep n.p.o. for now. NG tube in place. Check magnesium and potassium levels. Appreciate Dr. Swain's input. We will consult GI, obtain stool studies. The patient was recently diagnosed with enteritis. check stool studies. Add IV abx. 2. Obesity BMI of 35. 3. Homelessness. 4. DVT prophylaxis with PPI and Lovenox. SA/MODHaider Voice ID: [id number] Report ID: [id number] [facility]
--- NOTE | 2019-01-05 17:48 | CON ---
Date of Consultation: 01/05/2019 Diagnoses: Abdominal distention, abdominal pain, enteritis. History Of Present Illness: This is the case of a 48-year-old patient with at least a week history o f abdominal pain, distention. Apparently, he was seen several days ago. He went home, diagnosed wit h enteritis, probably related to food since the patient is homeless and his diet change everyday. Co mes today, 3 days later, still with same inflammation. Even today when I saw him, he has inflammatio n of his abdomen, mild tenderness, but he is requesting food right now and diet immediately. Apparen tly, he has limited understanding of his condition. Surgical consult was obtained since the CAT scan cannot rule out obstruction. He stated that he had diarrhea for the last several days. Once again, he is homeless, he does not have any specific area where he eat, so he eat whatever is on his hand a t this specific moment. Allergies: NONE. Past Medical History: Enteritis. Past Surgical History: None. Family History: Noncontributory. Social History: The patient does not smoke. He drinks alcohol. He claimed occasionally. Medications: Cipro and Flagyl, but he is not taking them. Review of Systems: Ten points, otherwise unremarkable. Physical Examination: General: The patient is awake and alert. HEENT: Pupils are equal and reactive, anicteric. Neck: Supple. Chest: Clear. Abdomen: Softly distended. Mild generalized tenderness. No guarding, rebound, or peritoneal signs. Rectal: Deferred. Extremities: Good capillary refill. Laboratory Studies: WBC count of 7.5, hemoglobin of 15.3. Bicarb is 26, glucose 118. Urine nitrite negative. CAT scan of the abdomen and pelvis, still official result pending. Although, preliminary by outside institution interpret the CAT scan as inflammation of the small bowel terminal ileum, pro ximal dilatation of the small bowel. Assessment: This is a 48-year-old patient, he states he is homeless, his diet is out of control. He has been for several days having abdominal pain, not taking his medication. Right now, requesting d iet immediately, even though the CAT scan shows an inflammation of his small bowel. Etiology of that is unknown. Could be from a simple enteritis from food related or bacteria or parasites, that even could be also inflammatory bowel disease. I believe this patient should be evaluated by the gastroen terologist to help with that. From the surgical standpoint, bowel rest, NG tube, the antibiotics, an d obviously I suggested primary doctor obtaining also a full panel of stool culture. BARBRA Voice ID: [id number] Report ID: [id number]
[2019-01-05] MEDS: CIPROFLOXACIN 400mg IV 400 MG/200 ML BAG IV SCH (21:55)
[2019-01-05] MEDS: MORPHINE 2 MG/ML SYR IV PRN (22:00)
[2019-01-05] MEDS ORDERED: BENZOCAINE SPRAY 57 GM BTL TOP ONE (23:29)
[2019-01-05] MEDS ORDERED: DEXAMETHASONE 10 MG/ML VIAL IV ONE (23:47)
[2019-01-06] MEDS: NA CHLORIDE 0.9% 1,000 ML IV SCH ×3 (00:30→18:05)
[2019-01-06] MEDS: METRONIDAZOLE 500mg IVPB 500 MG/100 ML BAG IV SCH ×3 (01:45→16:21)
[2019-01-06 04:51] LABS: Absolute Lymphocytes (CBC) 1.3 K/uL (0.7-4.9); Absolute Monocytes 0.6 K/uL (0.1-1.3); Absolute Neutrophil 4.9 K/uL (1.8-8.0); Basophils % 0.3 % (0-1.3); Eosinophils % 1.2 % (0-4.4); Hematocrit 39.7 % (39.6-49.0); Lymphocytes % 19.3 % (15.3-44.8); MPV 7.1 fL (7.6-11.3); Monocytes % 8.3 % (3.3-12.3); RBC Red Blood Cell Count 4.63 M/uL (4.33-5.43)
[2019-01-06 05:14] LABS: BUN Blood Urea Nitrogen 11 mg/dL (7-18); Bicarbonate 29 mmol/L (21-32); Glucose Level 102 mg/dL (74-106); Potassium 3.7 mmol/L (3.5-5.1); Sodium Level 139 mmol/L (136-145)
[2019-01-06] MEDS: CIPROFLOXACIN 400mg IV 400 MG/200 ML BAG IV SCH ×2 (09:51→21:08)
[2019-01-06] MEDS ORDERED: KCL 20 MEQ/100 mL IVPB 20 MEQ/100 ML BAG IV SCH (15:00)
--- NOTE | 2019-01-06 16:46 | PN ---
Date of Progress Note: 01/06/2019 Diagnosis: Small bowel obstruction. Subjective: The patient feels better. He is passing gas. He claims he had a bowel movement. No ab dominal pain. He is very hungry. Review of Systems: Ten points, otherwise unremarkable. Objective: Chest: Clear. Abdomen: Soft and depressible. No guarding or rebound or peritoneal signs. Bowel sounds positive. Extremities: Good capillary refill. Plan: From a surgical standpoint, we have no objection. He wants to eat today. I encouraged him to only try liquid first and see how he does, small meals and ambulation. He was advised the importance also of diet control and a low-fat diet. HM/MODL Voice ID: [id number] Report ID: [id number]
--- NOTE | 2019-01-06 18:38 | P.PN ---
Subjective Date of Service: 01/06/19 Chief Complaint: SBO Subjective: Improving Patient is seen and examined at bedside. Chart reviewed and case discussed with nursing staff, Dr. Devries and Dr. Swain. The patient is homeless, wants to eat, wants the NG tube out. Re-iterated the need for NGT at this time. Review of Systems 10-point ROS is otherwise unremarkable Physical Examination - Vital Signs Temperature: 98.2 F Blood Pressure: 132/75 Pulse: 64 Respirations: 20 Pulse Ox (%): 96 - Physical Exam General: Alert, In no apparent distress, Oriented x3 HEENT: Atraumatic, PERRLA, EOMI Neck: Supple, JVD not distended Respiratory: Clear to auscultation bilaterally, Normal air movement Cardiovascular: Regular rate/rhythm, Normal S1 S2 Gastrointestinal: Hypoactive, Other (NGT still putting out over a liter of fluid. ) Musculoskeletal: No tenderness Integumentary: No rashes Neurological: Normal speech, Normal tone, Normal affect Lymphatics: No axilla or inguinal lymphadenopathy Assessment And Plan - Current Problems (Diagnosis) (1) SBO (small bowel obstruction) Onset Date: 01/23/18 Current Visit: No Status: Resolved (2) Obesity Current Visit: Yes Status: Chronic Qualifiers: Obesity type: unspecified obesity type Obesity classification: unspecified obesity classification Serious obesity comorbidity presence: unspecified whether serious comorbidity present Qualified Code(s): E66.9 - Obesity, unspecified - Plan A 48-year-old male with; Small-bowel obstruction. Improving symptoms. Continue to keep n.p.o. for now. NG tube in place. Output more than [address] Swain's input. Appreciate Dr. Devries's input. Per GI, not likely enteritis that is causing increased NGT output. He will need EGD/Colonoscopy as an outpatient. He does have a hx of SBO in the past. Stool studies pending. Continue IV antibiotics. Obesity BMI of 35. Homelessness. DVT prophylaxis: Lovenox. GI prophylaxis: PPI Diet: NPO Disposition: Pending symptomatic improvement.
[2019-01-06] MEDS: MORPHINE 2 MG/ML SYR IV PRN (21:08)
--- NOTE | 2019-01-06 22:12 | PN ---
The patient was seen by me today for followup. This is a gastroenterology progress note. He says th at he feels better, however, he still has an NG tube in place and there seems to be a 1.1 L of biliou s fluid backed up, which indicates his small intestinal tract is still not moving. This is not the f irst time this patient has been admitted with apparent bowel obstructions. He was admitted in December of last year. Differential is broad, includes fibroadhesive disease. Enteritis is unlikely; enterit is does not cause this sort of obstruction. Crohn disease is a possibility; however, that can only b e evaluated after the acute obstruction is relieved and an outpatient basis with an endoscopy, colono scopy and capsule endoscopy if needed. For now, no active intervention from GI. Keep n.p.o., but prasanna gonzalez surgical recommendations. US/MODL Voice ID: [id number] Report ID: [id number]
[2019-01-07] MEDS: NA CHLORIDE 0.9% 1,000 ML IV SCH ×3 (01:20→16:38)
[2019-01-07] MEDS: METRONIDAZOLE 500mg IVPB 500 MG/100 ML BAG IV SCH ×4 (01:20→23:57)
[2019-01-07] MEDS: CIPROFLOXACIN 400mg IV 400 MG/200 ML BAG IV SCH ×2 (08:49→20:01)
--- NOTE | 2019-01-07 16:11 | RAD REPORT ---
EXAM DESCRIPTION: RAD - Small Bowel Series - 01/07/2019 4:00 pm CLINICAL HISTORY: Abdominal pain, small bowel obstruction COMPARISON: CT January 04 FINDINGS: Hotel Registration Clerk film shows a nonspecific bowel gas pattern. No obstruction or free air. No suspiciou s calcifications. Gastric size and mucosal fold pattern are normal. No delay in transit of contrast into the small nicholas l. Small bowel diameter has diminished from the January 04 examination. Borderline or minimally prominen t mucosal fold pattern seen in the mid ileum. No terminal ileum abnormality identifiable. Transit robbie e to the colon is 1 hour common normal. IMPRESSION: No small bowel obstruction. Transit time to the colon is normal at 1 hour. Small bowel diameter has diminished since the January 04 study. There is borderline or minimal mucosal f old edema in the mid ileum.
--- NOTE | 2019-01-07 17:28 | P.PN ---
Subjective Date of Service: 01/07/19 Chief Complaint: SBO Patient is seen and examined at bedside. Chart reviewed and case discussed with nursing staff, Dr. Devries and Dr. Swain. The patient is homeless, wants to eat, wants the NG tube out. Re-iterated the need for NGT at this time. Review of Systems 10-point ROS is otherwise unremarkable Physical Examination - Vital Signs Temperature: 97.9 F Blood Pressure: 159/76 Pulse: 74 Respirations: 18 Pulse Ox (%): 94 - Physical Exam General: Alert, In no apparent distress HEENT: Atraumatic, PERRLA, EOMI Neck: Supple, JVD not distended Respiratory: Clear to auscultation bilaterally, Normal air movement Cardiovascular: Regular rate/rhythm, Normal S1 S2 Gastrointestinal: Normal bowel sounds, No tenderness Musculoskeletal: No tenderness Integumentary: No rashes Neurological: Normal speech, Normal tone, Normal affect Lymphatics: No axilla or inguinal lymphadenopathy Assessment And Plan - Current Problems (Diagnosis) (1) SBO (small bowel obstruction) Onset Date: 01/23/18 Current Visit: Yes Status: Acute (2) Obesity Current Visit: Yes Status: Chronic Qualifiers: Obesity type: unspecified obesity type Obesity classification: unspecified obesity classification Serious obesity comorbidity presence: unspecified whether serious comorbidity present Qualified Code(s): E66.9 - Obesity, unspecified - Plan A 48-year-old male with; Small-bowel obstruction. Improving symptoms. Continue to keep n.p.o. for now. NG tube in place. Continues to have output. Small bowel series pending Appreciate Dr. Swain's input. Appreciate Dr. Devries's input. Per GI, not likely enteritis that is causing increased NGT output. He will need EGD/Colonoscopy as an outpatient. He does have a hx of SBO in the past. Stool studies pending. Continue IV antibiotics. Obesity BMI of 35. Homelessness. DVT prophylaxis: Lovenox. GI prophylaxis: PPI Diet: NPO Disposition: Pending symptomatic improvement.
[2019-01-07] MEDS ORDERED: MINERAL OIL 30 ML UCUP PO ONE (21:00)
[2019-01-07 23:40] VITALS: O2SAT 95
[2019-01-08] MEDS: NA CHLORIDE 0.9% 1,000 ML IV SCH ×4 (01:54→20:36)
[2019-01-08] MEDS: CIPROFLOXACIN 400mg IV 400 MG/200 ML BAG IV SCH ×2 (08:10→20:36)
[2019-01-08] MEDS: METRONIDAZOLE 500mg IVPB 500 MG/100 ML BAG IV SCH ×2 (08:13→17:32)
--- NOTE | 2019-01-08 10:31 | RAD REPORT ---
EXAM DESCRIPTION: RAD - Abdomen W Erect - 01/08/2019 10:01 am CLINICAL HISTORY: Abdominal pain FINDINGS: Contrast is present throughout the colon. Several loops of small bowel are mildly dilated which may indicate an an enteritis or ileus. Low-grad e partial small bowel obstruction is considered less likely Free air is not seen beneath the diaphragm
--- NOTE | 2019-01-08 23:11 | P.PN ---
Subjective Date of Service: 01/08/19 Chief Complaint: SBO Subjective: Improving Patient is seen and examined at bedside. Chart reviewed and case discussed with nursing staff, Dr. Devries and Dr. Swain. NGT out, tolerating Gi soft diet Denies further abdominal pain, nausea or vomiting. Ambulating well Review of Systems 10-point ROS is otherwise unremarkable Physical Examination - Vital Signs Temperature: 98.1 F Blood Pressure: 107/65 Pulse: 79 Respirations: 16 Pulse Ox (%): 95 - Physical Exam General: Alert, In no apparent distress HEENT: Atraumatic, PERRLA, EOMI Neck: Supple, JVD not distended Respiratory: Clear to auscultation bilaterally, Normal air movement Cardiovascular: Regular rate/rhythm, Normal S1 S2 Gastrointestinal: Normal bowel sounds, No tenderness Musculoskeletal: No tenderness Integumentary: No rashes Neurological: Normal speech, Normal tone, Normal affect Lymphatics: No axilla or inguinal lymphadenopathy Assessment And Plan - Current Problems (Diagnosis) (1) SBO (small bowel obstruction) Onset Date: 01/23/18 Current Visit: Yes Status: Acute (2) Obesity Current Visit: Yes Status: Chronic Qualifiers: Obesity type: unspecified obesity type Obesity classification: unspecified obesity classification Serious obesity comorbidity presence: unspecified whether serious comorbidity present Qualified Code(s): E66.9 - Obesity, unspecified - Plan A 48-year-old male with; Small-bowel obstruction. Symptoms resovled. Small bowel series without evidence of obstruction. Tolerating GI soft diet Appreciate Dr. Swain's input. Appreciate Dr. Devries's input. Per GI, not likely enteritis that is causing increased NGT output. He will need EGD/Colonoscopy as an outpatient. He does have a hx of SBO in the past. Obesity BMI of 35. Homelessness. Social work consulted DVT prophylaxis: Lovenox. GI prophylaxis: PPI Diet: GI soft diet Disposition: Pending symptomatic improvement. Likely discharge in the next 24 hours. Discharge Plan: Home Plan to discharge in: 24 Hours
[2019-01-09] MEDS: METRONIDAZOLE 500mg IVPB 500 MG/100 ML BAG IV SCH ×2 (00:01→08:18)
[2019-01-09] MEDS: NA CHLORIDE 0.9% 1,000 ML IV SCH ×2 (03:52→08:18)
[2019-01-09 06:04] LABS: BUN Blood Urea Nitrogen 7 mg/dL (7-18); Bicarbonate 27 mmol/L (21-32); Glucose Level 98 mg/dL (74-106); Magnesium 2.2 mg/dL (1.8-2.4); Potassium 3.7 mmol/L (3.5-5.1); Sodium Level 141 mmol/L (136-145)
[2019-01-09] MEDS ORDERED: POTASSIUM CL SA 10 MEQ TAB PO ONE (06:12)
--- NOTE | 2019-01-09 07:28 | P.DS ---
Admission Date: 01/05/19 Discharge Date: 01/09/19 Primary Care Provider: None Disposition: ROUTINE DISCHARGE Discharge Condition: GOOD Reason for Admission: SBO Consultations: General surgery, Dr. Swain Gastroenterology, Dr. Devries - Problems (1) SBO (small bowel obstruction) Onset Date: 01/23/18 Current Visit: Yes Status: Acute (2) Obesity Current Visit: Yes Status: Chronic Qualifiers: Obesity type: unspecified obesity type Obesity classification: unspecified obesity classification Serious obesity comorbidity presence: unspecified whether serious comorbidity present Qualified Code(s): E66.9 - Obesity, unspecified Brief History of Present Illness: Mr Yen is a 48 years old male with history of obesity, who start about 3 days ago with diffuse abdominal pain, associated with nausea, vomiting and diarrhea. He came to ED 2 days ago, and was diagnosed with food poisoning, discharged home on oral antibiotics. However, his symptoms did not improved. He came to ED for further evaluation. He denied fever or chills, last bowel movements [employer] still diarrhea. Lab work shows normal WBC count, CT abd/pelvis report SBO. Hospital Course: Patient was admitted for abdominal pain associated with nausea, vomiting and diarrhea. He was kept NPO. General surgery was consulted. Per General Surgery , seemed to be more often enteritis type of picture. He was started on antibiotics. GI was consulted. NG tube was placed, with increased NG output. Per GI, seemed more of an obstruction. Small bowel series was ordered, without evidence of obstruction. Abdominal x-ray without any evidence of acute abnormalities. His symptoms improved, he was started on a clear liquid diet. He was advanced as he could tolerate the diet. Prior to discharge, he was tolerating a GI soft diet, work denying any symptoms of abdominal pain, nausea or vomiting. He stated that he felt well. He was ambulating without any concerns. He will need a EGD/colonoscopy as an outpatient. Social work was consulted for his homeless status. Patient stated that he will be going to [facility] after being discharged from here. Information on resources provided to patient. He was discharged in a safe manner with oral antibiotics. He was provided information for GI for outpatient follow up for an EGD/ colonoscopy. Vital Signs/Physical Exam: Temp Pulse Resp BP Pulse Ox 97.7 F 70 16 133/67 96 01/09/19 04:00 01/09/19 04:00 01/09/19 04:00 01/09/19 04:00 01/09/19 04:00 General: Alert, In no apparent distress, Oriented x3 HEENT: Atraumatic, PERRLA, EOMI Neck: Supple, JVD not distended Respiratory: Clear to auscultation bilaterally, Normal air movement Cardiovascular: Regular rate/rhythm, Normal S1 S2 Gastrointestinal: Normal bowel sounds, No tenderness Musculoskeletal: No tenderness Integumentary: No rashes Neurological: Normal speech, Normal tone, Normal affect Lymphatics: No axilla or inguinal lymphadenopathy Laboratory Data at Discharge: WBC 6.9 K/uL (4.3-10.9) 01/06/19 04:33 Hgb 13.4 g/dL (13.6-17.9) L 01/06/19 04:33 Hct 39.7 % (39.6-49.0) 01/06/19 04:33 Plt Count 259 K/uL (152-406) 01/06/19 04:33 Sodium 141 mmol/L (136-145) 01/09/19 05:32 Potassium 3.7 mmol/L (3.5-5.1) 01/09/19 05:32 BUN 7 mg/dL (7-18) 01/09/19 05:32 Creatinine 0.78 mg/dL (0.55-1.3) 01/09/19 05:32 Glucose 98 mg/dL (74-106) 01/09/19 05:32 Magnesium 2.2 mg/dL (1.8-2.4) 01/09/19 05:32 Total Bilirubin 0.4 mg/dL (0.2-1.0) 01/04/19 19:12 AST 15 U/L (15-37) 01/04/19 19:12 ALT 33 U/L (12-78) 01/04/19 19:12 Alkaline Phosphatase 72 U/L (45-117) 01/04/19 19:12 Lipase 165 U/L (73-393) 01/04/19 19:12 Home Medications: Ciprofloxacin HCl 500 mg PO Q12HP #8 tablet 01/09/19 metroNIDAZOLE [Flagyl*] 500 mg PO Q8H #12 tablet 01/09/19 New Medications: Ciprofloxacin HCl 500 mg PO Q12HP #8 tablet metroNIDAZOLE [Flagyl*] 500 mg PO Q8H #12 tablet Patient Discharge Instructions: Please follow up with the primary care physician in 2-3 days. Information provided to you. Please follow up with Gastroenterology in 2 weeks. Information provided to you. Please return to the emergency room for worsening symptoms Diet: Soft, as tolerated Activity: Ad terrance Followup: Jairo Devries MD [ACTIVE - CAN ADMIT] - 1-2 Weeks Time spent managing pt's care (in minutes): 55
[2019-01-09] MEDS: CIPROFLOXACIN 400mg IV 400 MG/200 ML BAG IV SCH (08:18)
[2019-01-09 13:03] VITALS: BP 115/64; TEMP 96.8
== END 2019-01-09 13:12 | disposition home or self-care (01) | DRG 390 ==
LOC: ER 19:11 → ERHOLD 01-05 00:57 → 4TH 01-05 01:26
PROVIDERS: ADMIT Internal Medicine; ATTEND Family Medicine
PROC: 0D9670Z Drainage of Stomach with Drainage Device, Via Natural or Artificial Opening (ICD-10-PCS; principal; 2019-01-04)
DX: K56.609 Unspecified intestinal obstruction, unspecified as to partial versus complete obstruction (principal); E66.9 Obesity, unspecified; Z68.35 Body mass index [BMI] 35.0-35.9, adult; Z59.0 Homelessness; R19.7 Diarrhea, unspecified
CPT/HCPCS: 36415; 71045; 74019; 74022; 74176; 74250; 80048; 80076; 81003; 83690; 83735; 85025; 87045; 87046; 87070; 87177; 87209; 87493; 89055; 96361; 96374; 96375; 99285; J0744; J1100; J2270; J2405; J2550; J2765; J7030

== ENCOUNTER 2019-06-03 12:51 | Emergency (ER) | payer SELFPAY ==
[2019-06-03] MEDS ORDERED: NA CHLORIDE 0.9% 1,000 ML ONE ×2 (13:03→14:19)
[2019-06-03 13:15] LABS: Absolute Lymphocytes (CBC) 2.8 K/uL (0.7-4.9); Basophils % 1.3 % (0-1.3); Hematocrit 40.3 % (39.6-49.0); Lymphocytes % 31.1 % (15.3-44.8); MPV 7.6 fL (7.6-11.3); RBC Red Blood Cell Count 4.65 M/uL (4.33-5.43)
--- NOTE | 2019-06-03 13:33 | RAD REPORT ---
EXAM DESCRIPTION: RAD - Chest Single View - 06/03/2019 1:14 pm CLINICAL HISTORY: Chest pain, abdominal pain COMPARISON: December 2018 TECHNIQUE: AP portable chest image was obtained 1311 hours . FINDINGS: Lung volumes are relatively low. No dense consolidation. Lung markings in the left base ar e slightly increased when compared to the right. Minimal left base interstitial infiltrate is possibl e. No overall failure/ volume overload findings. Heart and vasculature are normal. No measurable pleu ral effusion and no pneumothorax. No acute bony abnormality seen. No acute aortic findings suspected. IMPRESSION: Minimal left base stranding could be early interstitial pneumonia.
[2019-06-03 13:47] LABS: Protime INR 0.93
[2019-06-03] MEDS ORDERED: ONDANSETRON 4 MG/2 ML VIAL ONE (14:19)
[2019-06-03] MEDS ORDERED: MORPHINE 4 MG/ML SYR ONE (14:19)
[2019-06-03 14:23] LABS: ALT/SGPT 27 U/L (12-78); AST/SGOT 11 U/L (15-37); Albumin 3.7 g/dL (3.4-5.0); Alkaline Phosphatase 57 U/L (45-117); BUN Blood Urea Nitrogen 11 mg/dL (7-18); Bicarbonate 27 mmol/L (21-32); Bilirubin Direct < 0.1 mg/dL (0-0.2); Bilirubin Total 0.2 mg/dL (0.2-1.0); Glucose Level 129 mg/dL (74-106); Lipase 227 U/L (73-393); Magnesium 2.2 mg/dL (1.8-2.4); NT PRO-BNP 30 pg/mL (<125); Potassium 3.8 mmol/L (3.5-5.1); Protein, Total 6.8 g/dL (6.4-8.2); Sodium Level 144 mmol/L (136-145); Troponin (Emerg Dept Use Only) < 0.02 ng/mL (0.0-0.045)
[2019-06-03 15:08] LABS: Urine Blood NEGATIVE (NEG); Urine Glucose TRACE (NEG); Urine Protein NEGATIVE (NEG); Urine Specific Gravity 1.025 (1.005-1.030)
--- NOTE | 2019-06-03 15:13 | RAD REPORT ---
EXAM DESCRIPTION: CTAbdomen Pelvis W Contrast - 06/03/2019 3:01 pm CLINICAL HISTORY: Abdominal pain. ABD PAIN COMPARISON: <Comparisons> TECHNIQUE: Biphasic CT imaging of the abdomen and pelvis was performed with 100 ml non-ionic IV cont rast. All CT scans are performed using dose optimization technique as appropriate and may include automated exposure control or mA/KV adjustment according to patient size. FINDINGS: The lung bases are clear. The liver demonstrates mild fatty infiltration. The spleen, pancreas, adrenal glands and kidneys are within normal limits. No bowel obstruction, free air, free fluid or abscess. The appendix is normal. No evidence of signi ficant lymphadenopathy. No suspicious bony findings. Small fat containing inguinal hernias, slightly greater on the right. IMPRESSION: No acute intra-abdominal or pelvic finding.
[2019-06-03] MEDS ORDERED: ASPIRIN 81 MG CHEWABLE TABLET ONE (16:11)
--- NOTE | 2019-06-03 17:58 | EDPHYS ---
Physician Documentation [facility] Name: Avel Yen Jr Age: 48 yrs Sex: Male : 1970 Arrival Date: 06/03/2019 Time: 12:54 Bed 26 Private MD: ED Physician Pablo Cortes HPI: 06/03 13:05 This 48 yrs old Male presents to ER via EMS with complaints of Abdominal Pain. cp 13:05 The patient presents with abdominal pain in the upper abdomen. Onset: The cp symptoms/episode began/occurred 1 hour(s) ago. The symptoms radiate to chest. Associated signs and symptoms: Pertinent positives: chest pain, nausea, Pertinent negatives: blood in stools, constipation, fever, palpitations, shortness of breath, testicular pain, vomiting. 13:05 The patient or guardian reports chest pain that is located primarily in the anterior cp chest wall. 13:05 Onset: just prior to arrival. Associated signs and symptoms: Pertinent positives: cp numbness of left arm, Pertinent negatives: diaphoresis, lower extremity pain, lower extremity swelling. Duration: The patient or guardian reports a single episode, improved. Historical: - Allergies: 12:57 No Known Allergies; tw2 - Home Meds: 13:33 None [Active]; iw - PMHx: 13:33 bowel obstruction; iw - PSHx: 12:57 None; tw2 - Immunization history:: Adult Immunizations. - Social history:: Smoking status: . - Ebola Screening: : Patient denies travel to an Ebola-affected area in the 21 days before illness onset. ROS: 13:10 Constitutional: Negative for body aches, chills, fever, poor PO intake. cp 13:10 Eyes: Negative for injury, pain, redness, and discharge. cp 13:10 ENT: Negative for drainage from ear(s), ear pain, sore throat, difficulty swallowing, difficulty handling secretions. 13:10 Cardiovascular: Positive for chest pain, Negative for edema, palpitations. 13:10 Respiratory: Negative for cough, shortness of breath, wheezing. 13:10 Abdomen/GI: Positive for abdominal pain, nausea, Negative for vomiting, diarrhea, constipation, black/tarry stool, rectal bleeding. 13:10 Back: Positive for radiated pain. 13:10 : Negative for urinary symptoms, testicular pain 13:10 Skin: Negative for rash. 13:10 Neuro: Negative for altered mental status, dizziness, headache, syncope, weakness. 13:10 All other systems are negative. Exam: 13:15 Constitutional: The patient appears in no acute distress, alert, awake, cp non-diaphoretic, non-toxic, well developed, well nourished, uncomfortable. 13:15 Head/Face: Normocephalic, atraumatic. cp 13:15 Eyes: Periorbital structures: appear normal, Pupils: equal, round, and reactive to light and accomodation, Extraocular movements: intact throughout, Conjunctiva: normal, no exudate, no injection, Sclera: no appreciated abnormality, Lids and lashes: appear normal, bilaterally. 13:15 ENT: External ear(s): are unremarkable, Ear canal(s): are normal, clear, TM's: dullness, bilaterally, Nose: is normal, Mouth: is normal, Posterior pharynx: is normal, airway is patent, no erythema, no exudate. 13:15 Neck: ROM/movement: is normal, is supple, without pain, no range of motions limitations, no nuchal rigidity. 13:15 Chest/axilla: Inspection: normal, Palpation: is normal, no crepitus, no tenderness. 13:15 Cardiovascular: Rate: normal, Rhythm: regular, Edema: is not appreciated, JVD: is not appreciated. 13:15 Respiratory: the patient does not display signs of respiratory distress, Respirations: normal, no use of accessory muscles, no retractions, no splinting, no tachypnea, labored breathing, is not present, Breath sounds: are clear throughout, no decreased breath sounds, no stridor, no wheezing. 13:15 Abdomen/GI: Inspection: abdomen appears normal, Bowel sounds: active, all quadrants, Palpation: soft, in all quadrants, moderate abdominal tenderness, in the epigastric area, right upper quadrant and right lower quadrant, rebound tenderness, is not appreciated, involuntary guarding, is not appreciated. 13:15 Back: pain, is absent, ROM is normal. cp 13:15 Skin: no rash present. cp 13:15 Neuro: Orientation: to person, place \T\ time. Mentation: is normal, Cerebellar function: is grossly normal, Motor: moves all fours, strength is normal, Sensation: is normal. 15:39 ECG was reviewed by the Attending Physician. cp 17:25 ECG was reviewed by the Attending Physician. cp Vital Signs: 13:02 BP 141 / 76; Pulse 63; Resp 16; Temp 98.2; Pulse Ox 98% on R/A; Weight 95.25 kg; Height iw 5 ft. 11 in. (180.34 cm); Pain 8/10; 16:06 BP 136 / 79; Pulse 76; Resp 16; Pulse Ox 97% on R/A; iw 17:57 BP 110 / 87; Pulse 71; Resp 16; Pulse Ox 98% on R/A; iw 13:02 Body Mass Index 29.29 (95.25 kg, 180.34 cm) iw MDM: 12:58 Patient medically screened. cp 17:55 The patient was given aspirin in the Emergency Department. cp 17:55 Data reviewed: vital signs, nurses notes, lab test result(s), EKG, radiologic studies, cp CT scan, plain films. Test interpretation: by ED physician or midlevel provider: ECG. Special discussion: Based on the patient's history, exam, and Dx evaluation, there is no indication for emergent intervention or inpatient Tx. It is understood by the patient/guardian that if the Sx's persist or worsen they need to return immediately for re-evaluation. Based on the patient's Hx, exam, and Dx evaluation, there is no indication for emergent surgery or inpatient Tx. It is understood by the patient/guardian that if the Sx's persist or worsen they need to return immediately for re-evaluation. ED course: VSS. Initial and repeat EKGs and troponin negative. CT abdomen negative for acute findings. Will discharge to home for continued monitoring. 06/03 12:58 Order name: Basic Metabolic Panel; Complete Time: 15:39 cp 06/03 15:39 Interpretation: Normal except: CL 111; GLUC 129. cp 06/03 12:58 Order name: CBC with Diff cp 06/03 12:58 Order name: LFT's; Complete Time: 15:39 cp 06/03 12:58 Order name: Magnesium; Complete Time: 15:39 cp 06/03 12:58 Order name: NT PRO-BNP; Complete Time: 15:39 cp 06/03 12:58 Order name: PT-INR cp 06/03 12:58 Order name: Troponin (emerg Dept Use Only); Complete Time: 15:39 cp 06/03 12:58 Order name: XRAY Chest (1 view); Complete Time: 15:39 cp 06/03 12:58 Order name: Lipase; Complete Time: 15:39 cp 04 13:25 Order name: CBC with Automated Diff EDMS 06/03 13:55 Order name: Protime (+INR) EDMS 06/03 14:10 Order name: CT Abd/Pelvis - IV Contrast Only; Complete Time: 17:53 cp 06/03 14:55 Order name: Urine Dipstick--Ancillary (enter results); Complete Time: 15:39 em1 06/03 17:01 Order name: Troponin I; Complete Time: 17:53 iw 06/03 17:54 Interpretation: Reviewed. cp 06/03 12:58 Order name: EKG; Complete Time: 13:00 cp 06/03 12:58 Order name: Cardiac monitoring; Complete Time: 13:02 cp 06/03 12:58 Order name: EKG - Nurse/Tech; Complete Time: 13:32 cp 06/03 12:58 Order name: IV Saline Lock; Complete Time: 13:13 cp 06/03 12:58 Order name: Labs collected and sent; Complete Time: 13:13 cp 06/03 12:58 Order name: O2 Per Protocol; Complete Time: 13:03 cp 06/03 12:58 Order name: O2 Sat Monitoring; Complete Time: 13:02 cp 06/03 17:03 Order name: EKG; Complete Time: 17:03 cp 06/03 17:03 Order name: EKG - Nurse/Tech; Complete Time: 17:14 cp 06/03 17:07 Order name: Diet Regular; Complete Time: 17:08 iw EC:39 Rate is 80 beats/min. Rhythm is regular. VA interval is normal. QRS interval is normal. cp QT interval is normal. Interpreted by me. Reviewed by me. 17:25 Rate is 72 beats/min. Rhythm is regular. VA interval is normal. QRS interval is normal. cp QT interval is normal. Interpreted by me. Reviewed by me. Administered Medications: 13:13 Drug: NS 0.9% 1000 ml Route: IV; Rate: 1 bolus; Site: right antecubital; iw 14:30 Follow up: IV Status: Completed infusion iw 14:21 Drug: morphine 4 mg {Note: rass 0.} Route: IVP; Site: right antecubital; rv 15:48 Follow up: Response: No adverse reaction; Pain is decreased; RASS: Alert and Calm (0) iw 14:22 Drug: Zofran 4 mg Route: IVP; Site: right antecubital; rv 15:48 Follow up: Response: No adverse reaction; Nausea is decreased iw 16:18 Drug: Aspirin Chewable Tablet 324 mg Route: PO; iw 16:57 Follow up: Response: No adverse reaction iw Disposition: 18:30 Co-signature as Attending Physician, Pablo Cortes MD. rn Disposition: 06/03/19 17:57 Discharged to Home. Impression: Chest pain, unspecified, Unspecified abdominal pain, Tinea cruris. - Condition is Stable. - Discharge Instructions: Abdominal Pain, Adult, Nonspecific Chest Pain, Jock Itch, Aspirin and Your Heart. - Prescriptions for Clotrimazole 1 % Topical Cream - Apply to affected area 1 application by TOPICAL route every 12 hours for 10 days; 30 gram. Pepcid 20 mg Oral Tablet - take 1 tablet by ORAL route every 12 hours for 10 days; 20 tablet. Zofran 4 mg Oral Tablet - take 1 tablet by ORAL route every 12 hours As needed; 20 tablet. Fluconazole 200 mg Oral Tablet - take 1 tablet by ORAL route every other day for 2 days; 2 tablet. - Medication Reconciliation Form, Thank You Letter, Antibiotic Education, Prescription Opioid Use, Work release form form. - Follow up: Private Physician; When: 1 - 2 days; Reason: Recheck today's complaints. - Problem is new. - Symptoms have improved. Signatures: Dispatcher [employer] Hoa Blair RN RN Pablo Cortes MD MD rn Page, Corey, PA PA cp Wise, Tara RN RN tw2 Garland Lopez RN RN rv Corrections: (The following items were deleted from the chart) 18:18 17:57 06/03/2019 17:57 Discharged to Home. Impression: Chest pain, unspecified; iw Unspecified abdominal pain; Tinea cruris. Condition is Stable. Forms are Work release form, Medication Reconciliation Form, Thank You Letter, Antibiotic Education, Prescription Opioid Use. Follow up: Private Physician; When: 1 - 2 days; Reason: Recheck today's complaints. Problem is new. Symptoms have improved. cp
--- NOTE | 2019-06-03 17:58 | ER ---
Nurse's Notes [facility] Name: Avel Yen Jr Age: 48 yrs Sex: Male : 1970 Arrival Date: 06/03/2019 Time: 12:54 Bed 26 Private MD: Diagnosis: Chest pain, unspecified;Unspecified abdominal pain;Tinea cruris Presentation: 06/03 12:58 Presenting complaint: Patient states: c/o upper abd pain that started about an hour iw ago. radiates down to RLQ around to back, also has some chest pain and arm numbness that has resolved, pt has hx of bowl obstruction, denies vomiting, last BM today but was not normal. Transition of care: patient was not received from another setting of care. Onset of symptoms was June 03, 2019. Risk Assessment: Do you want to hurt yourself or someone else? Patient reports no desire to harm self or others. Initial Sepsis Screen: Does the patient meet any 2 criteria? No. Patient's initial sepsis screen is negative. Does the patient have a suspected source of infection? No. Patient's initial sepsis screen is negative. Care prior to arrival: None. 12:58 Method Of Arrival: EMS: [facility] iw 12:58 Acuity: DAYANARA 3 iw Historical: - Allergies: 12:57 No Known Allergies; tw2 - Home Meds: 13:33 None [Active]; iw - PMHx: 13:33 bowel obstruction; iw - PSHx: 12:57 None; tw2 - Immunization history:: Adult Immunizations. - Social history:: Smoking status: . - Ebola Screening: : Patient denies travel to an Ebola-affected area in the 21 days before illness onset. Screenin:57 Abuse screen: Denies threats or abuse. Nutritional screening: No deficits noted. tw2 Tuberculosis screening: No symptoms or risk factors identified. Fall Risk None identified. Assessment: 13:25 General: Appears in no apparent distress. comfortable, Behavior is calm, cooperative. iw Pain: Complains of pain in right upper quadrant and right lower quadrant Pain radiates to back. Neuro: Level of Consciousness is awake, alert, obeys commands, Oriented to person, place, time, situation, Moves all extremities. Full function. Cardiovascular: Patient's skin is warm and dry. Respiratory: Reports Respiratory effort is even, unlabored, Respiratory pattern is regular, symmetrical. GI: Abdomen is non-distended, Bowel sounds present X 4 quads. Abd is soft and non tender X 4 quads. Reports lower abdominal pain, upper abdominal pain, epigastric pain, Patient currently denies vomiting. Derm: Skin is intact, is healthy with good turgor. Musculoskeletal: Range of motion: intact in all extremities. 16:33 Reassessment: Patient appears in no apparent distress at this time. Patient and/or iw family updated on plan of care and expected duration. Pain level reassessed. Patient is alert, oriented x 3, equal unlabored respirations, skin warm/dry/pink. pt requesting to have Rudy Meléndez look at a rash in his groin area, PA notified. 17:57 Reassessment: Patient appears in no apparent distress at this time. Patient and/or iw family updated on plan of care and expected duration. Pain level reassessed. Patient is alert, oriented x 3, equal unlabored respirations, skin warm/dry/pink. Patient denies pain at this time. Patient states feeling better. Patient states symptoms have improved. Vital Signs: 13:02 BP 141 / 76; Pulse 63; Resp 16; Temp 98.2; Pulse Ox 98% on R/A; Weight 95.25 kg; Height iw 5 ft. 11 in. (180.34 cm); Pain 8/10; 16:06 BP 136 / 79; Pulse 76; Resp 16; Pulse Ox 97% on R/A; iw 17:57 BP 110 / 87; Pulse 71; Resp 16; Pulse Ox 98% on R/A; iw 13:02 Body Mass Index 29.29 (95.25 kg, 180.34 cm) ED Course: 12:54 Patient arrived in ED. em1 12:57 Medhat Elizabeth PA is PHCP. cp 12:57 Pablo Cortes MD is Attending Physician. cp 12:57 Arm band placed on. tw2 12:58 Hoa Batista, JUNITO is Primary Nurse. iw 13:01 Triage completed. iw 13:10 Initial lab(s) drawn, by nd, sent to lab. Inserted saline lock: 20 gauge in right iw antecubital area, using aseptic technique. 13:35 XRAY Chest (1 view) In Process Unspecified. EDMS 13:40 EKG done, by ED staff, reviewed by Medhat FAYE. jp3 13:41 Bed in low position. Call light in reach. Side rails up X 1. Side rails up X2. Lights jp3 dimmed. Warm blanket given. Pillow given. Verbal reassurance given. cardiac monitor on. Pulse ox on. NIBP on. 15:03 CT Abd/Pelvis - IV Contrast Only In Process Unspecified. EDMS 17:05 Repeat lab(s) drawn. by me, sent to lab. iw 17:26 EKG done, by master automotive glass technician. reviewed by Medhat FAYE. sm3 18:17 No provider procedures requiring assistance completed. IV discontinued, intact, iw bleeding controlled, No redness/swelling at site. Pressure dressing applied. Administered Medications: 13:13 Drug: NS 0.9% 1000 ml Route: IV; Rate: 1 bolus; Site: right antecubital; iw 14:30 Follow up: IV Status: Completed infusion iw 14:21 Drug: morphine 4 mg {Note: rass 0.} Route: IVP; Site: right antecubital; rv 15:48 Follow up: Response: No adverse reaction; Pain is decreased; RASS: Alert and Calm (0) iw 14:22 Drug: Zofran 4 mg Route: IVP; Site: right antecubital; rv 15:48 Follow up: Response: No adverse reaction; Nausea is decreased iw 16:18 Drug: Aspirin Chewable Tablet 324 mg Route: PO; iw 16:57 Follow up: Response: No adverse reaction iw Outcome: 17:57 Discharge ordered by . cp 18:17 Discharged to home ambulatory. iw 18:17 Condition: good 18:17 Discharge instructions given to patient, Instructed on discharge instructions, follow up and referral plans. medication usage, Demonstrated understanding of instructions, follow-up care, medications, Prescriptions given X 4. 18:18 Patient left the ED. iw Addendum: 06/06/2019 14:11 Addendum: Radiology Result: Attempted to reach patient for follow up with phone number s s on file as radiology report reads, "Minimal left base stranding could be early interstitial pneumonia." [facility] was to [facility]" which staff reports that patient no longer is there. Signatures: Dispatcher [employer] Hoa Blair RN RN iw Soham Swain em1 Aliyah Vazquez RN RN ss Medhat Elizabeth PA PA cp Wise, Tara, RN RN tw2 Moriah Clements 3 Garland Lopez RN RN Julio Galvin jp3 Corrections: (The following items were deleted from the chart) 06/03 13:02 13:02 BP 141 / 7; Pulse 63bpm; Resp 16bpm; Pulse Ox 98% RA; Temp 98.2F; Pain 7/10; iw iw 13:33 13:02 BP 141 / 76; Pulse 63bpm; Resp 16bpm; Pulse Ox 98% RA; Temp 98.2F; Pain 7/10; iw iw
[2019-06-03 18:58] VITALS: TEMP 98.2
[2019-06-03 19:00] VITALS: BP 110/87; O2SAT 98
--- NOTE | 2019-06-04 07:34 | EKG ---
Test Date: 2019-06-03 Test Time: 17:17:07 Patching Machine Operator: JADE MEASUREMENT RESULTS: Intervals: Rate: 72 SC: 152 QRSD: 88 QT: 396 QTc: 433 [place]: P: 45 SC: 152 QRS: 50 T: 47 INTERPRETIVE STATEMENTS: Normal sinus rhythm Normal ECG Compared to ECG 06/03/2019 13:31:34 No significant changes Electronically Signed On 06-04-19 07:32:58 CDT by Roberto Summers
--- NOTE | 2019-06-04 07:36 | EKG ---
Test Date: 2019-06-03 Test Time: 13:31:34 Publishing Agent: KAYLA MEASUREMENT RESULTS: Intervals: Rate: 80 NM: 164 QRSD: 90 QT: 380 QTc: 438 [place]: P: 47 NM: 164 QRS: 50 T: 22 INTERPRETIVE STATEMENTS: Normal sinus rhythm Normal ECG Compared to ECG 06/13/2018 10:19:04 No significant changes Electronically Signed On 06-04-19 07:35:52 CDT by Roberto Summers
== END 2019-06-03 18:18 | disposition home or self-care (01) ==
LOC: ER 12:51
DX: R07.9 Chest pain, unspecified (principal); B35.6 Tinea cruris
CPT/HCPCS: 36415; 71045; 74177; 80048; 80076; 81003; 83690; 83735; 83880; 84484; 85025; 85610; 93005; 96361; 96374; 96375; 99285; J2405; J7030; Q9967

== ENCOUNTER 2019-09-15 23:27 | Emergency (ER) | payer SELFPAY ==
[2019-09-15] MEDS ORDERED: ALBUTEROL 2.5 MG/3 ML NEB SOL ONE ×2 (23:36→23:46)
[2019-09-15] MEDS ORDERED: IPRATROPIUM BROM 0.5MG/2.5ML ONE (23:46)
[2019-09-16] MEDS ORDERED: BENZONATATE 100 MG CAP PO ONE (00:10)
[2019-09-16] MEDS ORDERED: ACETAMINOPHEN 500 MG TAB ONE (00:12)
--- NOTE | 2019-09-16 00:37 | EDPHYS ---
Physician Documentation [facility] Name: Avel Yen Jr Age: 49 yrs Sex: Male : 1970 Arrival Date: 09/15/2019 Time: 23:36 Bed 18 Private MD: ED Physician Yohannes Tubbs HPI: 09/16 00:31 This 49 yrs old Male presents to ER via EMS with complaints of cough sob. tw4 00:31 The patient or guardian reports cough, that is constant. Onset: The symptoms/episode tw4 began/occurred today. Severity of symptoms: At their worst the symptoms were moderate, in the emergency department the symptoms have improved. Modifying factors: The symptoms are alleviated by nothing, the symptoms are aggravated by nothing. The patient has not experienced similar symptoms in the past. Historical: - Allergies: 09/15 23:40 No Known Allergies; rv - Home Meds: 23:40 None [Active]; rv - PMHx: 23:40 bowel obstruction; rv - PSHx: 23:40 None; rv - Immunization history:: Adult Immunizations up to date. - Social history:: Smoking status: Patient uses tobacco products, smokes one-half pack cigarettes per day. - Ebola Screening: : No symptoms or risks identified at this time. ROS: 09/16 00:31 Constitutional: Negative for fever, chills, and weight loss, Eyes: Negative for injury, tw4 pain, redness, and discharge, Cardiovascular: Negative for chest pain, palpitations, and edema, Abdomen/GI: Negative for abdominal pain, nausea, vomiting, diarrhea, and constipation, Back: Negative for injury and pain, MS/Extremity: Negative for injury and deformity, Skin: Negative for injury, rash, and discoloration, Neuro: Negative for headache, weakness, numbness, tingling, and seizure. Respiratory: Positive for cough, shortness of breath, wheezing, Negative for dyspnea on exertion, hemoptysis, orthopnea, pleurisy. Exam: 00:31 Constitutional: This is a well developed, well nourished patient who is awake, alert, tw4 and in no acute distress. Head/Face: Normocephalic, atraumatic. Chest/axilla: Normal chest wall appearance and motion. Nontender with no deformity. No lesions are appreciated. Cardiovascular: Regular rate and rhythm with a normal S1 and S2. No gallops, murmurs, or rubs. Normal PMI, no JVD. No pulse deficits. 00:31 Back: No spinal tenderness. No costovertebral tenderness. Full range of motion. Skin: Warm, dry with normal turgor. Normal color with no rashes, no lesions, and no evidence of cellulitis. MS/ Extremity: Pulses equal, no cyanosis. Neurovascular intact. Full, normal range of motion. Neuro: Awake and alert, GCS 15, oriented to person, place, time, and situation. Cranial nerves II-XII grossly intact. Motor strength 5/5 in all extremities. Sensory grossly intact. Cerebellar exam normal. Normal gait. 00:31 Respiratory: the patient does not display signs of respiratory distress, Respirations: normal, Breath sounds: wheezing: is scattered. Vital Signs: 09/15 23:38 BP 131 / 67; Pulse 87; Resp 20; Temp 98.8; Pulse Ox 100% ; rv 09/16 00:30 BP 128 / 68; Pulse 81; Resp 18; Pulse Ox 100% on R/A; rv 01:15 BP 134 / 66; Pulse 79; Resp 17; Pulse Ox 100% ; rv MDM: 09/15 23:36 Patient medically screened. tw4 09/16 00:31 Differential Diagnosis: Obstructed Airway Bronchitis Influenza. Data reviewed: vital tw4 signs, nurses notes. Data interpreted: quality assurance monitor chassis: rhythm is normal sinus rhythm, Pulse oximetry: Interpretation: normal. Counseling: I had a detailed discussion with the patient and/or guardian regarding: the historical points, exam findings, and any diagnostic results supporting the discharge/admit diagnosis, the need for outpatient follow up. Medication response: albuterol nebulizer treatment(s) relieved the patient's symptoms. The patient is no longer wheezing. Response to treatment: the patient's symptoms have resolved after treatment, the patient is not short of breath, and as a result, I will discharge patient. Special discussion: I discussed with the patient/guardian in detail that at this point there is no indication for admission to the hospital. It is understood, however, that if the symptoms persist or worsen the patient needs to return immediately for re-evaluation. 09/15 23:37 Order name: Flu tw4 09/15 23:37 Order name: CXR XRAY tw4 Administered Medications: 09/15 23:42 Drug: DuoNeb (3:1) (2.5 mg - 0.5 mg) 3 ml Route: Nebulizer; rv 09/16 00:12 Follow up: Response: No adverse reaction rv 01:25 Follow up: Response: No adverse reaction; Marked relief of symptoms rv 00:12 Drug: Tessalon Perle 100 mg Route: PO; rv 01:25 Follow up: Response: No adverse reaction rv 00:13 Drug: Tylenol 1000 mg Route: PO; rv 01:25 Follow up: Response: No adverse reaction rv Disposition: 09/16/19 00:35 Discharged to Home. Impression: Acute bronchitis. - Condition is Stable. - Discharge Instructions: Acute Bronchitis, Adult. - Prescriptions for Tessalon Perles 100 mg Oral Capsule - take 1 capsule by ORAL route every 8 hours As needed; 15 capsule. Zithromax Z- Felipe 250 mg Oral Tablet - take 1 tablet by ORAL route as directed for 5 days Day 1 - take two (2) tablets one time. Day 2, 3, 4 , 5 take one (1) tablet once daily.; 6 tablet. Albuterol Sulfate 90 mcg/actuation - inhale 1-2 puff by INHALATION route every 4-6 hours; 1 Inhaler. Guaifenesin AC 10- 100 mg/5 mL Oral Liquid - take 10 milliliter by ORAL route every 4 hours As needed; 240 milliliter. - Medication Reconciliation Form, Thank You Letter, Antibiotic Education, Prescription Opioid Use form. - Follow up: Private Physician; When: Upon discharge from the Emergency Department; Reason: Recheck today's complaints, Continuance of care. - Problem is new. - Symptoms have improved. Signatures: Dispatcher [employer] Yohannes Gandara MD MD tw4 Garland Lopez RN RN rv Corrections: (The following items were deleted from the chart) 01:26 00:35 09/16/2019 00:35 Discharged to Home. Impression: Acute bronchitis. Condition is rv Stable. Forms are Medication Reconciliation Form, Thank You Letter, Antibiotic Education, Prescription Opioid Use. Follow up: Private Physician; When: Upon discharge from the Emergency Department; Reason: Recheck today's complaints, Continuance of care. Problem is new. Symptoms have improved. tw4
--- NOTE | 2019-09-16 00:37 | ER ---
Nurse's Notes [facility] Name: Avel Yen Jr Age: 49 yrs Sex: Male : 1970 Arrival Date: 09/15/2019 Time: 23:36 Bed 18 Private MD: Diagnosis: Acute bronchitis Presentation: 09/15 23:37 Presenting complaint: Patient states: I usually get sick once a year. for the last two rv days I was out in the rain and cold. today I am coughing and really congested. Transition of care: patient was not received from another setting of care. Onset of symptoms was September 15, 2019 at 20:00. Risk Assessment: Do you want to hurt yourself or someone else? Patient reports no desire to harm self or others. Initial Sepsis Screen: Does the patient meet any 2 criteria? No. Patient's initial sepsis screen is negative. Does the patient have a suspected source of infection? No. Patient's initial sepsis screen is negative. Care prior to arrival: None. 23:37 Method Of Arrival: EMS: [facility] rv 23:37 Acuity: DAYANARA 4 rv Triage Assessment: 09/16 01:26 General: Behavior is calm, cooperative. rv Historical: - Allergies: 09/15 23:40 No Known Allergies; rv - Home Meds: 23:40 None [Active]; rv - PMHx: 23:40 bowel obstruction; rv - PSHx: 23:40 None; rv - Immunization history:: Adult Immunizations up to date. - Social history:: Smoking status: Patient uses tobacco products, smokes one-half pack cigarettes per day. - Ebola Screening: : No symptoms or risks identified at this time. Screenin:41 Abuse screen: Denies threats or abuse. Denies injuries from another. Nutritional rv screening: No deficits noted. Tuberculosis screening: No symptoms or risk factors identified. Fall Risk None identified. Assessment: 23:40 General: Appears in no apparent distress. comfortable. Pain: Denies pain. Neuro: Level rv of Consciousness is awake, alert, obeys commands, Oriented to person, place, time, situation. Cardiovascular: Patient's skin is warm and dry. Respiratory: Airway is patent Breath sounds are clear bilaterally. Derm: Skin is intact. Vital Signs: 23:38 BP 131 / 67; Pulse 87; Resp 20; Temp 98.8; Pulse Ox 100% ; rv 1218 00:30 BP 128 / 68; Pulse 81; Resp 18; Pulse Ox 100% on R/A; rv 01:15 BP 134 / 66; Pulse 79; Resp 17; Pulse Ox 100% ; rv ED Course: 09/15 23:36 Patient arrived in ED. rv 23:36 Yohannes Tubbs MD is Attending Physician. tw4 23:38 Triage completed. rv 23:41 Patient has correct armband on for positive identification. Bed in low position. Call rv light in reach. Side rails up X 1. Pulse ox on. NIBP on. 23:41 Patient placed in the treatment room, on a stretcher, on pulse oximetry, Patient rv notified of wait time. 09/16 00:12 Garland Lopez, RN is Primary Nurse. rv 00:19 CXR XRAY In Process Unspecified. EDMS 01:26 No provider procedures requiring assistance completed. Patient did not have IV access rv during this emergency room visit. Administered Medications: 09/15 23:42 Drug: DuoNeb (3:1) (2.5 mg - 0.5 mg) 3 ml Route: Nebulizer; rv 12 00:12 Follow up: Response: No adverse reaction rv 01:25 Follow up: Response: No adverse reaction; Marked relief of symptoms rv 00:12 Drug: Tessalon Perle 100 mg Route: PO; rv 01:25 Follow up: Response: No adverse reaction rv 00:13 Drug: Tylenol 1000 mg Route: PO; rv 01:25 Follow up: Response: No adverse reaction rv Outcome: 00:35 Discharge ordered by . tw4 01:26 Discharged to home ambulatory. rv 01:26 Condition: good 01:26 Discharge instructions given to patient, Instructed on discharge instructions, follow up and referral plans. medication usage, Demonstrated understanding of instructions, follow-up care, medications, Prescriptions given X 4. 01:26 Patient left the ED. rv Signatures: Dispatcher [employer] EDMS Yohannes Tubbs MD MD tw4 Garland Lopez, RN RN rv
[2019-09-16 01:55] VITALS: TEMP 98.8; O2SAT 100
[2019-09-16 01:57] VITALS: BP 134/66
--- NOTE | 2019-09-16 08:10 | RAD REPORT ---
EXAM DESCRIPTION: RAD - Chest Single View - 09/16/2019 12:05 am CLINICAL HISTORY: SOB Chest pain. COMPARISON: Chest Single View dated 06/03/2019; Abdomen Acute Series dated 01/05/2019; Chest Single View dated 01/05/2019; Abdomen 1 View (KUB) dated 01/23/2018; Abdomen Pelvis W Contrast dated 06/03/2019 FINDINGS: Portable technique limits examination quality. The lungs are grossly clear. The heart is normal in size. No displaced fractures. IMPRESSION: No acute intrathoracic process suspected.
== END 2019-09-16 01:26 | disposition home or self-care (01) ==
LOC: ER 23:27
DX: J20.9 Acute bronchitis, unspecified (principal); F17.210 Nicotine dependence, cigarettes, uncomplicated
CPT/HCPCS: 71045; 87804; 94640; 99284

== ENCOUNTER 2021-03-10 18:59 | Emergency (ER) | payer SELFPAY ==
[2021-03-10] MEDS ORDERED: MORPHINE 4 MG/ML SYR ONE (20:11)
[2021-03-10 20:27] LABS: Urine Blood Negative (Negative); Urine Glucose Negative (Negative); Urine Protein 1+ (Negative); Urine Specific Gravity 1.025 (1.005-1.030); Urine pH 6.5 (5.0-7.0)
[2021-03-10 21:05] LABS: Urine Bacteria 20-50 /HPF (NONE SEEN); Urine RBC <5 /HPF (NONE SEEN)
[2021-03-10] MEDS ORDERED: KETOROLAC 30 MG/ML INJ ONE (22:23)
[2021-03-10] MEDS ORDERED: dexAMETHasone 10 MG/ML VIAL ONE (22:23)
[2021-03-10] MEDS ORDERED: HYDROCODONE/APAP 7.5/325 MG TAB ONE (23:44)
--- NOTE | 2021-03-10 23:59 | EDPHYS ---
Physician Documentation [facility] Name: Avel Yen Jr Age: 50 yrs Sex: Male : 1970 Arrival Date: 03/10/2021 Time: 19:02 Bed 20 Private MD: ED Physician Steve Jordan HPI: 03/10 19:45 This 50 yrs old Male presents to ER via Ambulatory with complaints of Low Back cp Pain. 19:45 The patient presents with pain that is acute, with no known mechanism of injury. cp 19:45 The symptoms are located in the low back. The pain radiates to the down back of legs to cp above knees. The problem was sustained from unknown cause. Onset: The symptoms/episode began/occurred 2 day(s) ago. 19:45 Associated signs and symptoms: Pertinent positives: constipation, weakness, Pertinent cp negatives: abdominal pain, chest pain, dysuria, fever, hematuria, incontinence, numbness, urinary retention. Patient concerned pain may be due to side effect from recent vaccination for COVID-19 on 02-24-2021. 19:45 Severity of symptoms: in the emergency department the symptoms are unchanged, despite cp home interventions. Historical: - Allergies: 19:15 No Known Allergies; vg1 - Home Meds: 19:15 Lisinopril Oral [Active]; Metformin Oral [Active]; vg1 - PMHx: 19:15 bowel obstruction; Hypertension; Diabetes - NIDDM; vg1 - Immunization history:: Adult Immunizations up to date, Client reports receiving the 1st dose of the Covid vaccine. - Social history:: Smoking status: Patient reports the use of cigarette tobacco products, smokes one pack cigarettes per day. ROS: 19:55 Constitutional: Negative for body aches, chills, fever, poor PO intake. cp 19:55 Eyes: Negative for injury, pain, redness, and discharge. cp 19:55 Neck: Negative for pain with movement, pain at rest, stiffness. 19:55 Cardiovascular: Negative for chest pain, edema, palpitations. 19:55 Respiratory: Negative for cough, shortness of breath, wheezing. 19:55 Abdomen/GI: Positive for constipation, Negative for abdominal pain, nausea, vomiting, and diarrhea, black/tarry stool, bowel incontinence. 19:55 Back: Positive for pain at rest, pain with movement, of the low back area. 19:55 : Negative for urinary symptoms, bladder incontinence, testicular pain 19:55 Skin: Negative for rash. 19:55 Neuro: Positive for general weakness of legs and burning of upper legs, Negative for altered mental status, dizziness, headache, numbness, syncope. 19:55 All other systems are negative. Exam: 20:00 Constitutional: The patient appears in no acute distress, alert, awake, non-toxic, well cp developed, well nourished, uncomfortable. 20:00 Head/Face: Normocephalic, atraumatic. cp 20:00 Eyes: Periorbital structures: appear normal, Conjunctiva: normal, no exudate, no injection, Sclera: no appreciated abnormality, Lids and lashes: appear normal, bilaterally. 20:00 ENT: External ear(s): are unremarkable, Nose: is normal, Mouth: Lips: moist, Oral mucosa: moist, Posterior pharynx: Airway: no evidence of obstruction, patent. 20:00 Neck: ROM/movement: is normal, is supple, without pain, no range of motions limitations. 20:00 Chest/axilla: Inspection: normal, Palpation: is normal, no crepitus, no tenderness. 20:00 Cardiovascular: Rate: normal, Rhythm: regular, Edema: is not appreciated, JVD: is not appreciated. 20:00 Respiratory: the patient does not display signs of respiratory distress, Respirations: normal, no use of accessory muscles, no retractions. 20:00 Abdomen/GI: Inspection: abdomen appears normal, Bowel sounds: active, all quadrants, Palpation: abdomen is soft and non-tender, in all quadrants. 20:00 Back: pain, that is severe, of the low back area, ROM is painful, with all movement, Straight leg raises: pain bilaterally. 20:00 Skin: no rash present. 20:00 Neuro: Motor: moves all fours, strength is normal, Sensation: no obvious gross deficits, Deep tendon reflexes are 2+ (normal) in the right patellar, right Achilles, left patellar and left Achilles. Vital Signs: 19:12 BP 148 / 91; Pulse 87; Resp 18; Temp 99.0(O); Pulse Ox 98% ; Weight 127.01 kg; Height 5 vg1 ft. 11 in. (180.34 cm); Pain 10/10; 20:45 BP 136 / 78; Pulse 80; Resp 16; Pulse Ox 99% on R/A; Pain 6/10; ap3 21:42 BP 141 / 73; Pulse 76; Resp 16; Pulse Ox 98% on R/A; ap3 22:56 BP 126 / 82; Pulse 74; Resp 17; Pulse Ox 96% on R/A; ap3 23:44 BP 119 / 69; Pulse 71; Pulse Ox 96% on R/A; ap3 19:12 Body Mass Index 39.05 (127.01 kg, 180.34 cm) vg1 MDM: 19:43 Patient medically screened. cp 20:00 Differential diagnosis: strain, sciatica, Herniated disc UTI, spinal stenosis, cauda cp equina. 23:58 Data reviewed: vital signs, nurses notes, radiologic studies, CT scan. cp 23:58 Counseling: I had a detailed discussion with the patient and/or guardian regarding: the cp historical points, exam findings, and any diagnostic results supporting the discharge/admit diagnosis, radiology results, the need for outpatient follow up, a neurosurgeon, to return to the emergency department if symptoms worsen or persist or if there are any questions or concerns that arise at home. Response to treatment: VSS. Pain markedly improved. Discussed results of CT and recommendation to f/u with neurosurgery. Return precautions given: worsening pain, numbness of groin, bowel/bladder incontinence. 03/10 19:45 Order name: Urine Microscopic Only; Complete Time: 21:53 03/10 20:27 Order name: Urine Dipstick-Ancillary; Complete Time: 21:53 [facility] 03/10 21:07 Order name: Urine Culture [facility] 03/10 21:56 Order name: CT Lumbar Spine Wo Con 03/10 19:45 Order name: Urine Dipstick-Ancillary (obtain specimen); Complete Time: 20:27 03/10 19:45 Order name: IV; Complete Time: 19:48 cp Administered Medications: 19:54 Drug: morphine 4 mg Route: IVP; Site: left antecubital; ap3 21:43 Follow up: Response: No adverse reaction; Pain is decreased; RASS: Alert and Calm (0) ap3 22:07 Drug: TORadol - (ketorolac) 15 mg Route: IVP; Site: left antecubital; ap3 23:17 Follow up: Response: No adverse reaction; Pain is decreased ap3 22:07 Drug: Decadron - Dexamethasone 10 mg Route: IVP; Site: left antecubital; ap3 23:17 Follow up: Response: No adverse reaction ap3 23:25 Drug: Hydrocodone-Acetaminophen (7.5 mg-325 mg) 1 tabs {Note: RASS: patient awake \T\ ap3 alert .} Route: PO; 03/11 00:11 Follow up: Response: No adverse reaction; Pain is decreased ap3 Disposition: :23 Co-signature as Attending Physician, Steve Jordan MD. mh7 Disposition: 03/10/21 23:59 Discharged to Home. Impression: Low back pain - Small broad based disc bulges L4/L5 and L5/S1. - Condition is Stable. - Discharge Instructions: Back Pain, Adult, Back Exercises. - Prescriptions for Ultracet 37.5- 325 mg Oral Tablet - take 1 tablet by ORAL route every 6 hours - for up to 5 days; do not exceed 8 tablets per day.; 20 tablet. Cyclobenzaprine 10 mg Oral Tablet - take 1 tablet by ORAL route every 8 hours As needed; 20 tablet. Medrol (Felipe) 4 mg Oral Tablets, Dose Pack - take 1 tablet by ORAL route as directed - follow package instructions; 1 packet. - Medication Reconciliation Form, Thank You Letter, Antibiotic Education, Prescription Opioid Use form. - Follow up: Nick Goodwin MD; When: 2 - 3 days; Reason: Recheck today's complaints. - Problem is new. - Symptoms have improved. Signatures: Dispatcher [employer] EDMS Medhat Elizabeth PA PA cp Josephine Sandoval, RN RN ap3 Sania Lewis RN RN vg1 Steve Joradn MD MD mh7 Corrections: (The following items were deleted from the chart) 00:16 0611 23:59 03/10/2021 23:59 Discharged to Home. Impression: Low back pain - Small ap3 broad based disc bulges L4/L5 and L5/S1. Condition is Stable. Forms are Medication Reconciliation Form, Thank You Letter, Antibiotic Education, Prescription Opioid Use. Follow up: Nick Goodwin; When: 2 - 3 days; Reason: Recheck today's complaints. Problem is new. Symptoms have improved. cp
--- NOTE | 2021-03-10 23:59 | ER ---
Nurse's Notes [facility] Name: Avel Yen Jr Age: 50 yrs Sex: Male : 1970 Arrival Date: 03/10/2021 Time: 19:02 Bed 20 Private MD: Diagnosis: Low back pain-Small broad based disc bulges L4/L5 and L5/S1 Presentation: 03/10 19:12 Chief complaint: Patient states: Feeling tire/weak for about two days. States lower vg1 back to mid ELIS thigh feels tight, burning and in pain. Stated no hx of blood clots in legs. States received Mederma vaccine on 02/24/21. Coronavirus screen: Client denies travel out of the [place] in the last 14 days. Ebola Screen: Patient negative for fever greater than or equal to 101.5 degrees Fahrenheit, and additional compatible Ebola Virus Disease symptoms. Initial Sepsis Screen: Does the patient meet any 2 criteria? No. Patient's initial sepsis screen is negative. Does the patient have a suspected source of infection? No. Patient's initial sepsis screen is negative. Risk Assessment: Do you want to hurt yourself or someone else? Patient reports no desire to harm self or others. Onset of symptoms was March 08, 2021. 19:12 Method Of Arrival: Ambulatory vg1 19:12 Acuity: DAYANARA 3 vg1 Triage Assessment: 19:15 General: Appears in no apparent distress. uncomfortable, Behavior is calm, cooperative. vg1 Pain: Complains of pain in lower back, ELIS thigh Pain currently is 10 out of 10 on a pain scale. Historical: - Allergies: 19:15 No Known Allergies; vg1 - Home Meds: 19:15 Lisinopril Oral [Active]; Metformin Oral [Active]; vg1 - PMHx: 19:15 bowel obstruction; Hypertension; Diabetes - NIDDM; vg1 - Immunization history:: Adult Immunizations up to date, Client reports receiving the 1st dose of the Covid vaccine. - Social history:: Smoking status: Patient reports the use of cigarette tobacco products, smokes one pack cigarettes per day. Screenin:21 Abuse screen: Denies threats or abuse. Nutritional screening: No deficits noted. ap3 Tuberculosis screening: No symptoms or risk factors identified. Fall Risk No fall in past 12 months (0 pts). No secondary diagnosis (0 pts). No IV (0 pts). Ambulatory Aid- None/Bed Rest/Nurse Assist (0 pts). Gait- Weak (10 pts.). Mental Status- Oriented to own ability (0 pts). Total Perrin Fall Scale indicates No Risk (0-24 pts). Assessment: 19:20 General: Appears in no apparent distress. uncomfortable, Behavior is cooperative, ap3 appropriate for age, restless. Pain: Complains of pain in back of right leg Pain does not radiate. Quality of pain is described as burning. Neuro: Level of Consciousness is awake, alert, obeys commands, Oriented to person, place, time, situation, Speech is normal. Cardiovascular: Denies chest pain, shortness of breath, Capillary refill < 3 seconds Pulses are absent in right dorsalis pedis artery and left dorsalis pedis artery. Respiratory: Airway is patent Respiratory effort is even, unlabored, Respiratory pattern is regular, symmetrical. GI: No signs and/or symptoms were reported involving the gastrointestinal system. : No signs and/or symptoms were reported regarding the genitourinary system. EENT: No signs and/or symptoms were reported regarding the EENT system. 21:39 Reassessment: Patient and/or family updated on plan of care and expected duration. Pain ap3 level reassessed. Patient is alert, oriented x 3, equal unlabored respirations, skin warm/dry/pink. 23:44 Reassessment: No changes from previously documented assessment. Patient states symptoms ap3 have improved. Vital Signs: 19:12 BP 148 / 91; Pulse 87; Resp 18; Temp 99.0(O); Pulse Ox 98% ; Weight 127.01 kg; Height 5 vg1 ft. 11 in. (180.34 cm); Pain 10/10; 20:45 BP 136 / 78; Pulse 80; Resp 16; Pulse Ox 99% on R/A; Pain 6/10; ap3 21:42 BP 141 / 73; Pulse 76; Resp 16; Pulse Ox 98% on R/A; ap3 22:56 BP 126 / 82; Pulse 74; Resp 17; Pulse Ox 96% on R/A; ap3 23:44 BP 119 / 69; Pulse 71; Pulse Ox 96% on R/A; ap3 19:12 Body Mass Index 39.05 (127.01 kg, 180.34 cm) vg1 ED Course: 19:02 Patient arrived in ED. bp1 19:14 Triage completed. vg1 19:15 Arm band placed on. vg1 19:17 Josephine Sandoval, JUNITO is Primary Nurse. ap3 19:22 Patient has correct armband on for positive identification. Bed in low position. Call ap3 light in reach. Side rails up X2. Adult w/ patient. Pulse ox on. NIBP on. Door closed. Noise minimized. 19:24 Primary Nurse role handed off by Josephine Sandoval, RN mw2 19:39 Medhat Elizabeth PA is PHCP. cp 19:39 Steve Jordan MD is Attending Physician. cp 19:48 Josephine Sandoval RN is Primary Nurse. ap3 19:48 Inserted saline lock: 20 gauge in left antecubital area, using aseptic technique. Blood ap3 collected. 22:27 CT Lumbar Spine Wo Con In Process Unspecified. EDMS 23:29 Nurse Practitioner and/or Physician Retreader to see patient. ap3 23:57 Nick Goodwin MD is Referral Physician. cp 03/11 00:09 No provider procedures requiring assistance completed. IV discontinued, intact, ap3 bleeding controlled, No redness/swelling at site. Pressure dressing applied. Administered Medications: 03/10 19:54 Drug: morphine 4 mg Route: IVP; Site: left antecubital; ap3 21:43 Follow up: Response: No adverse reaction; Pain is decreased; RASS: Alert and Calm (0) ap3 22:07 Drug: TORadol - (ketorolac) 15 mg Route: IVP; Site: left antecubital; ap3 23:17 Follow up: Response: No adverse reaction; Pain is decreased ap3 22:07 Drug: Decadron - Dexamethasone 10 mg Route: IVP; Site: left antecubital; ap3 23:17 Follow up: Response: No adverse reaction ap3 23:25 Drug: Hydrocodone-Acetaminophen (7.5 mg-325 mg) 1 tabs {Note: RASS: patient awake \T\ ap3 alert .} Route: PO; 03/11 00:11 Follow up: Response: No adverse reaction; Pain is decreased ap3 Outcome: 03/10 23:59 Discharge ordered by . cp 03/11 00:10 Discharged to home via wheelchair, with family. ap3 Condition: good Discharge instructions given to patient, Instructed on discharge instructions, follow up and referral plans. medication usage, Demonstrated understanding of instructions, follow-up care, medications, Prescriptions given X 3. 00:16 Patient left the ED. ap3 Signatures: Dispatcher [employer] EDMS Medhat Elizabeth PA PA cp Prokisch, Amanda RN RN ap3 Rajinder Sánchez mw2 Sania Lewis RN RN vg1 Mey Bradford [facility] Corrections: (The following items were deleted from the chart) 03/10 19:19 19:12 Chief complaint: Patient states: Feeling tire/weak for about two days. States vg1 lower back to mid ELIS thigh feels tight, burning and in pain. States received Mederma vaccine on 02/24/21 vg1
[2021-03-11 00:47] VITALS: TEMP 99
[2021-03-11 00:52] VITALS: O2SAT 96
[2021-03-11 00:53] VITALS: BP 119/69
--- NOTE | 2021-03-11 20:57 | RAD REPORT ---
EXAM DESCRIPTION: CT - Spine Lumbar Wo Con - 03/11/2021 6:38 am CLINICAL HISTORY: PAIN COMPARISON: None. TECHNIQUE: Contiguous axial images of lumbar spine were obtained utilizing 2 mm slice thickness at 2 mm interval reconstruction. In addition multiplanar reformats in the sagittal and coronal plane were generated and reviewed This exam was performed according to our departmental dose-optimization protocol, which includes auto mated exposure control, adjustment of the mA and/or kV according to patient size and/or use of iterat ken reconstruction technique. FINDINGS: There is anatomic alignment of the lumbar spine. Vertebral body height is preserved withou t evidence of acute fracture. There is no evidence for spondylolysis/or spondylitic listhesis. There is minimal anterior spondylosis upper lumbar spine. There is minimal posterior facet hypertrophy at L 4, L5 minimally at S1. No retroperitoneal or paraspinal abnormality is seen. L1-2: Unremarkable L2-3: Unremarkable L3-4: Unremarkable L4-5: There is a small broad-based bulge at L4/L5 with mild impression into the anterior aspect the kannan sac with no significant spinal canal stenosis L5-S1: There is a small broad-based bulge and slight right sided paraspinal component with minimal impression into the thecal sac, no compromise of the spinal canal. Mild right neural foraminal narrow ing IMPRESSION: No acute fracture or subluxation of the lumbar spine. Small broad-based bulges at L4/L5 and L5-S1 with mild impression into the anterior aspect thecal sac, no significant spinal canal stenosis. Mild right neural foraminal narrowing at L5-S1. Electronically signed by: Gerard Craig MD 03/10/2021 10:54 PM CDT Due to temporary technical issues with the PACS/Fluency reporting system, reports are being signed by the in house radiologists without review as a courtesy to insure prompt reporting. The interpreting radiologist is fully responsible for the content of the report.
== END 2021-03-11 00:16 | disposition home or self-care (01) ==
LOC: ER 18:59
DX: M51.27 Other intervertebral disc displacement, lumbosacral region (principal); I10 Essential (primary) hypertension; E11.9 Type 2 diabetes mellitus without complications; F17.210 Nicotine dependence, cigarettes, uncomplicated
CPT/HCPCS: 72131; 81003; 81015; 87086; 87088; 96374; 96375; 99284; J1100

== ENCOUNTER 2022-04-21 22:31 | Emergency (ER) | payer SELFPAY ==
[2022-04-21 23:15] LABS: SARS-CoV-2 Antigen Rapid Res Positive (Negative)
--- NOTE | 2022-04-21 23:58 | ER ---
Nurse's Notes [facility] Name: Avel Yen Jr Age: 51 yrs Sex: Male : 1970 Arrival Date: 04/21/2022 Time: 22:34 Bed Waiting Private MD: Diagnosis: Coronavirus infection, unspecified Presentation: 04/21 22:45 Chief complaint: Patient states: covid or flu symptoms. Coronavirus screen: Vaccine [facility] status: Patient reports receiving the 1st dose of the Covid vaccine. Client denies travel out of the [place] in the last 14 days. chills, congestion, cough unrelated to allergies, fatigue, fever, headache, sore throat. Ebola Screen: Patient negative for fever greater than or equal to 101.5 degrees Fahrenheit, and additional compatible Ebola Virus Disease symptoms. Initial Sepsis Screen: Does the patient meet any 2 criteria? No. Patient's initial sepsis screen is negative. Does the patient have a suspected source of infection? No. Patient's initial sepsis screen is negative. Risk Assessment: Do you want to hurt yourself or someone else? Patient reports no desire to harm self or others. Onset of symptoms was April 21, 2022. 22:45 Method Of Arrival: Ambulatory [facility] 22:45 Acuity: DAYANARA 4 [facility] Triage Assessment: 22:47 General: Appears in no apparent distress. ill, Behavior is calm, cooperative, [facility] appropriate for age. Pain: Denies pain. EENT: No deficits noted. Historical: - Allergies: 22:46 NKDA; [facility] - Home Meds: 22:46 None [Active]; 1 - PMHx: 22:46 bowel obstruction; Diabetes - NIDDM; Hypertension; [facility] - Immunization history:: Adult Immunizations up to date. - Social history:: Smoking status: Patient denies any tobacco usage or history of. Screenin/24 00:07 Abuse screen: Denies threats or abuse. Nutritional screening: No deficits noted. 1 Tuberculosis screening: No symptoms or risk factors identified. Fall Risk None identified. Assessment: 00:07 Respiratory: Airway. vc1 Vital Signs: 04/21 22:45 BP 110 / 58; Pulse 75; Resp 18; Temp 98.6(TE); Pulse Ox 97% on R/A; Weight 113.4 kg; bh1 Height 5 ft. 11 in. (180.34 cm); Pain 0/10; 22:45 Body Mass Index 34.87 (113.40 kg, 180.34 cm) [facility] ED Course: 22:34 Patient arrived in ED. bp1 22:39 Kenn Scanlon PA is PHCP. [facility] 22:39 Abdi Cochran DO is Attending Physician. [facility] 22:46 Triage completed. [facility] 22:47 Arm band placed on right wrist. EKG completed in triage. Results shown to MD. [facility] 22:55 Strep Sent. 1 22:55 Influenza Screen (a \T\ B) Sent. [facility] 22:55 SARS RAPID Sent. [facility] 04/22 00:07 Patient has correct armband on for positive identification. vc1 00:07 No provider procedures requiring assistance completed. Patient did not have IV access vc1 during this emergency room visit. Administered Medications: No medications were administered Medication: 00:07 VIS not applicable for this client. vc1 Outcome: 04/21 23:57 Discharge ordered by . [facility] 04/22 00:07 Discharged to home ambulatory. vc1 Condition: good Discharge instructions given to 00:08 Patient left the ED. vc Signatures: Kenn Scanlon PA PA [facility] Mey Bradford bp1 Meli Goodson RN RN [facility] Vicki Monteiro, JUNITO RN [facility] Corrections: (The following items were deleted from the chart) 04/21 22:47 22:46 Home Meds: lisinopril Oral; [place] [id number] 22:47 22:46 Home Meds: Metformin Oral; [place] [id number]
--- NOTE | 2022-04-21 23:58 | EDPHYS ---
Physician Documentation [facility] Name: Avel Yen Jr Age: 51 yrs Sex: Male : 1970 Arrival Date: 04/21/2022 Time: 22:34 Bed Waiting Private MD: ED Physician Abdi Cochran HPI: 04/21 22:51 This 51 yrs old Male presents to ER via Ambulatory with complaints of Fever, jmm Sore Throat, Abdominal Pain, Cough. 22:51 The patient reports fever, not measured (subjective). Onset: The symptoms/episode jmm began/occurred gradually, 2 day(s) ago. Modifying factors: there are no obvious modifying factors. Associated signs and symptoms: Pertinent positives: chills, cough, sore throat. It is unknown whether or not the patient has had similar symptoms in the past. Historical: - Allergies: 22:46 NKDA; bh1 - Home Meds: 22:46 None [Active]; bh1 - PMHx: 22:46 bowel obstruction; Diabetes - NIDDM; Hypertension; bh1 - Immunization history:: Adult Immunizations up to date. - Social history:: Smoking status: Patient denies any tobacco usage or history of. ROS: 22:51 Constitutional: Positive for body aches, chills, fever. jmm 22:51 ENT: Positive for sore throat. 22:51 Respiratory: Positive for cough. 22:51 All other systems are negative. Exam: 22:51 Constitutional: This is a well developed, well nourished patient who is awake, alert, jmm and in no acute distress. Head/Face: atraumatic. Eyes: EOMI, no conjunctival erythema appreciated 22:51 Neck: Trachea midline, Supple Chest/axilla: Normal chest wall appearance and motion. Cardiovascular: Regular rate and rhythm. No edema appreciated 22:51 Abdomen/GI: Non distended Back: Normal ROM Skin: General appearance color normal MS/ Extremity: Moves all extremities, no obvious deformities appreciated, no edema noted to the lower extremities Neuro: Awake and alert Psych: Behavior is normal, Mood is normal, Patient is cooperative and pleasant 22:51 ENT: Posterior pharynx: erythema, that is moderate. 22:51 Respiratory: the patient does not display signs of respiratory distress, Respirations: normal, Breath sounds: are clear throughout. Vital Signs: 22:45 BP 110 / 58; Pulse 75; Resp 18; Temp 98.6(TE); Pulse Ox 97% on R/A; Weight 113.4 kg; 1 Height 5 ft. 11 in. (180.34 cm); Pain 0/10; 22:45 Body Mass Index 34.87 (113.40 kg, 180.34 cm) [facility] MDM: 22:53 Patient medically screened. [facility] 23:57 Data reviewed: vital signs, nurses notes. Counseling: I had a detailed discussion with ankush the patient and/or guardian regarding: the historical points, exam findings, and any diagnostic results supporting the discharge/admit diagnosis, lab results, the need for outpatient follow up, to return to the emergency department if symptoms worsen or persist or if there are any questions or concerns that arise at home. 04/21 22:50 Order name: SARS RAPID; Complete Time: 23:16 [facility] 04/21 22:51 Order name: Influenza Screen (a \T\ B); Complete Time: 23:41 [facility] 04/21 22:51 Order name: Strep; Complete Time: 23:41 [facility] 04/21 23:40 Order name: Throat Culture EDMS Administered Medications: No medications were administered Disposition: 23:57 Chart complete. Chart complete. [facility] 04/22 06:31 Co-signature as Attending Physician, Abdi Cochran DO I was immediately available on-site ms3 in the Emergency Department for consultation in the care of the patient.. Disposition Summary: 04/21/22 23:57 Discharge Ordered Location: Home [facility] Condition: Stable [facility] Diagnosis - Coronavirus infection, unspecified [facility] Followup: [facility] - With: Private Physician - When: 2 - 3 days - Reason: Recheck today's complaints, Continuance of care, Re-evaluation by your physician Discharge Instructions: - Discharge Summary Sheet [facility] - COVID-19 [facility] Forms: - Medication Reconciliation Form [facility] - Thank You Letter [facility] - Antibiotic Education [facility] - Prescription Opioid Use [facility] Prescriptions: - PAXLOVID - take 300 milligram by ORAL route 2 times per day for 5 days; 1 packet; Refills: [facility] 0, Product Selection Permitted Signatures: Dispatcher [employer] EDMS Kenn Scanlon PA PA jmm Sims, Marcus, DO DO ms3 Vicki Monteiro RN RN bh1 Corrections: (The following items were deleted from the chart) 04/21 22:46 Home Meds: lisinopril Oral; [place] [id number] 22:46 Home Meds: Metformin Oral; [facility]
[2022-04-22 00:49] VITALS: BP 110/58; TEMP 98.6; O2SAT 97
== END 2022-04-22 00:08 | disposition home or self-care (01) ==
LOC: ER 22:31
DX: U07.1 COVID-19 (principal); I10 Essential (primary) hypertension
CPT/HCPCS: 36415; 87070; 87081; 87804; 87811; 99283

== ENCOUNTER 2023-03-28 19:12 | Emergency (ER) | payer SELFPAY ==
--- NOTE | 2023-03-28 19:25 | EDPHYS ---
Physician Documentation [facility] Name: Avel Yen Jr Age: 52 yrs Sex: Male : 1970 Arrival Date: 03/28/2023 Time: 19:12 Bed 14 Private MD: ED Physician Pablo Cortes HPI: 03/28 21:24 This 52 yrs old Male presents to ER via Ambulatory with complaints of Rash. kb 21:24 The patient's rash thought to be caused by an unknown cause. The rash is located on the kb left leg and abdomen and buttocks and pelvis and right leg. The rash can be described as erythematous. The patient has not recently seen a physician. 21:24 Onset: The symptoms/episode began/occurred last week, and became worse 2 day(s) ago. kb Associated signs and symptoms: Pertinent negatives: burning sensation, itching. Severity of symptoms: At their worst the symptoms were moderate in the emergency department the symptoms are unchanged. Treatment given at home: OTC lotion/cream. The patient has not experienced similar symptoms in the past. 21:25 Pt reports rash to groin, lower abd, buttocks and upper thighs that started "a while kb ago" and got worse 2 days ago. States the rash gets worse when hes in the heat. . Historical: - Allergies: 19:19 NKDA; lg3 - PMHx: 19:19 bowel obstruction; Diabetes - NIDDM; Hypertension; lg3 - PSHx: 19:19 None; lg3 - Immunization history:: Client reports receiving the 2nd dose of the Covid vaccine. - Social history:: Smoking status: Patient reports the use of cigarette tobacco products, smokes one-half pack cigarettes per day, Reported history of juuling and/or vaping. ROS: 21:17 Constitutional: Negative for fever, chills, and weight loss. kb 21:17 Skin: Positive for rash, of the buttocks, abdomen, pelvis, right leg and left leg. 21:17 All other systems are negative. Exam: 21:17 Constitutional: This is a well developed, well nourished patient who is awake, alert, kb and in no acute distress. Head/Face: Normocephalic, atraumatic. ENT: Moist Mucous membranes Cardiovascular: Regular rate and rhythm with a normal S1 and S2. No gallops, murmurs, or rubs. No pulse deficits. Respiratory: Respirations even and unlabored. No increased work of breathing. Talking in full sentences MS/ Extremity: Pulses equal, no cyanosis. Neurovascular intact. Full, normal range of motion. Neuro: Awake and alert, GCS 15, oriented to person, place, time, and situation. Moves all extremities. Normal gait. 21:17 Skin: rash a moderate rash is noted, consistent with contact dermatitis. Vital Signs: 19:19 BP 155 / 90; Pulse 80; Resp 18 S; Temp 99.3(TE); Pulse Ox 99% on R/A; Weight 122.47 kg lg3 (R); Height 5 ft. 11 in. (R); 19:19 Body Mass Index 37.66 (122.47 kg, 180.34 cm) lg3 MDM: 19:14 Patient medically screened. kb 21:18 Differential diagnosis: impetigo, allergic reaction, parasite infection. Data reviewed: kb vital signs, nurses notes. Counseling: I had a detailed discussion with the patient and/or guardian regarding: the historical points, exam findings, and any diagnostic results supporting the discharge/admit diagnosis, the need for outpatient follow up, a family practitioner, to return to the emergency department if symptoms worsen or persist or if there are any questions or concerns that arise at home. 03/28 19:32 Order name: Glucose, Ancillary Testing; Complete Time: 19:34 EDNV 03/28 19:22 Order name: Blood Glucose Level; Complete Time: 19:35 kb Administered Medications: 19:39 Drug: Famotidine PO 20 mg Route: PO; ll3 19:40 Follow up: Response: Medication administered at discharge. ll3 19:39 Drug: predniSONE PO 40 mg Route: PO; ll3 19:40 Follow up: Response: Medication administered at discharge. ll3 Point of Care Testing: Blood Glucose: 19:21 Blood Glucose: 159 mg/dL; lg3 Ranges: Critical Glucose Levels:Adult <50 mg/dl or >400 mg/dl <40 mg/dl or >180 mg/dl Disposition Summary: 03/28/23 19:25 Discharge Ordered Location: Home kb Condition: Stable kb Diagnosis - Rash and other nonspecific skin eruption kb Followup: kb - With: Emergency Department - When: As needed - Reason: Worsening of condition Followup: kb - With: Private Physician - When: 2 - 3 days - Reason: Recheck today's complaints, Continuance of care, Re-evaluation by your physician Discharge Instructions: - Discharge Summary Sheet kb - Rash, Adult, [id number] kb Forms: - Medication Reconciliation Form kb - Thank You Letter kb - Antibiotic Education kb - Prescription Opioid Use kb - [email or web address] kb Prescriptions: - Pepcid 20 mg Oral Tablet - take 1 tablet by ORAL route every 12 hours for 5 days; 10 tablet; Refills: 0, kb Product Selection Permitted - Prednisone 20 mg Oral Tablet - take 1 tablet by ORAL route once daily for 5 days; 5 tablet; Refills: 0, kb Product Selection Permitted Addendum: 03/30/2023 07:03 Co-signature as Attending Physician, Pablo Cortes MD I reviewed the patient's care r n provided by the Advanced Practice Provider and agree with the diagnosis and treatment plan. Signatures: Shannan South, LOG ROLLER-C LOG ROLLER-Ckb Pablo Cortes MD MD rn Gibson, Lacie RN RN lg3 Kaycee Cummings RN RN ll3
--- NOTE | 2023-03-28 19:25 | ER ---
Nurse's Notes [facility] Name: Avel Yen Jr Age: 52 yrs Sex: Male : 1970 Arrival Date: 03/28/2023 Time: 19:12 Bed 14 Private MD: Diagnosis: Rash and other nonspecific skin eruption Presentation: 03/28 19:17 Chief complaint: Patient states: generalized rash x2 days. Coronavirus screen: At this lg3 time, the client does not indicate any symptoms associated with coronavirus-19. Ebola Screen: No symptoms or risks identified at this time. Risk Assessment: Do you want to hurt yourself or someone else? Patient reports no desire to harm self or others. Onset of symptoms was March 26, 2023. 19:17 Acuity: DAYANARA 4 lg3 19:17 Method Of Arrival: Ambulatory lg3 19:19 Initial Sepsis Screen: Does the patient meet any 2 criteria? No. Patient's initial lg3 sepsis screen is negative. Does the patient have a suspected source of infection? No. Patient's initial sepsis screen is negative. Triage Assessment: 19:18 General: Appears in no apparent distress. Behavior is calm, cooperative. Pain: lg3 Complains of pain in generalized Quality of pain is described as burning. Derm: Rash noted that is macular, itchy, red, raised. Historical: - Allergies: 19:19 NKDA; lg3 - PMHx: 19:19 bowel obstruction; Diabetes - NIDDM; Hypertension; lg3 - PSHx: 19:19 None; lg3 - Immunization history:: Client reports receiving the 2nd dose of the Covid vaccine. - Social history:: Smoking status: Patient reports the use of cigarette tobacco products, smokes one-half pack cigarettes per day, Reported history of juuling and/or vaping. Screenin:21 [facility] ED Fall Risk Assessment (Adult) Score/Fall Risk Level 0 - 2 = Low Risk. Abuse lg3 screen: Denies threats or abuse. Denies injuries from another. Nutritional screening: No deficits noted. Tuberculosis screening: No symptoms or risk factors identified. Assessment: 19:39 General: Appears uncomfortable, Behavior is calm, cooperative. Respiratory: Airway is ll3 patent Respiratory effort is even, unlabored, Respiratory pattern is regular, symmetrical. Derm: Rash noted that is itchy, red, raised, on abdomen, right leg and left leg. Vital Signs: 19:19 BP 155 / 90; Pulse 80; Resp 18 S; Temp 99.3(TE); Pulse Ox 99% on R/A; Weight 122.47 kg lg3 (R); Height 5 ft. 11 in. (R); 19:19 Body Mass Index 37.66 (122.47 kg, 180.34 cm) lg3 ED Course: 19:13 Patient arrived in ED. jj6 19:14 Shannan South FNP-C [facility] kb 19:14 Pablo Cortes MD is Attending Physician. kb 19:17 Arm band placed on. lg3 19:18 Triage completed. lg3 19:21 Bed in low position. Call light in reach. lg3 19:39 No provider procedures requiring assistance completed. Patient did not have IV access ll3 during this emergency room visit. Administered Medications: 19:39 Drug: Famotidine PO 20 mg Route: PO; ll3 19:40 Follow up: Response: Medication administered at discharge. ll3 19:39 Drug: predniSONE PO 40 mg Route: PO; ll3 19:40 Follow up: Response: Medication administered at discharge. ll3 Medication: 19:39 VIS not applicable for this client. ll3 Point of Care Testing: Blood Glucose: 19:21 Blood Glucose: 159 mg/dL; lg3 Ranges: Outcome: 19:25 Discharge ordered by . kb 19:39 Discharged to home ambulatory. ll3 19:39 Condition: stable 19:39 Discharge instructions given to patient, Instructed on discharge instructions, follow up and referral plans. medication usage, Demonstrated understanding of instructions, follow-up care, medications, Prescriptions given X 2. 19:41 Patient left the ED. ll3 Signatures: Shannan South FNP-C FNP-Ckb Gibson, Lacie RN RN lg3 Marie Murguia jj6 Kaycee Cummings RN RN ll3
[2023-03-28] MEDS ORDERED: predniSONE 20 MG TAB ONE (19:43)
[2023-03-28] MEDS ORDERED: FAMOTIDINE 20 MG TAB ONE (19:43)
[2023-03-28 20:42] VITALS: BP 155/90; TEMP 99.3; O2SAT 99
== END 2023-03-28 19:41 | disposition home or self-care (01) ==
LOC: ER 19:12
DX: R21 Rash and other nonspecific skin eruption (principal)
CPT/HCPCS: 82947; 99283; J7512

== ENCOUNTER → 2023-11-16 | Emergency (ER) | payer SELFPAY ==
--- NOTE | 2023-11-16 16:58 | EDPHYS ---
Physician Documentation [facility] Name: Avel Yen Age: 53 yrs Sex: Male : 1970 Arrival Date: 11/16/2023 Time: 16:36 Bed IW2 Private MD: TING Physician Medhat Saldana HPI: 11/16 17:03 This 53 yrs old Male presents to ER via Ambulatory with complaints of Back kb Pain. 17:03 Patient is a 53-year-old male who presents for low back pain. States has had this pain kb several times in the past, over years, but yesterday was exacerbated by lifting a heavy stack of dishes. Denies tingling, numbness, incontinence or urinary retention. Pain worse with movement. States he called into work today so he just came in because his boss told him he needed a work note.. Historical: - Allergies: 16:49 NKDA; hb - PMHx: 16:49 Hypertension; Diabetes - NIDDM; bowel obstruction; hb - Immunization history:: Client reports receiving the 2nd dose of the Covid vaccine. - Social history:: Smoking status: Patient reports the use of cigarette tobacco products, smokes one pack cigarettes per day. ROS: 17:03 Constitutional: Negative for fever, chills, and weight loss, kb 17:03 Back: Positive for pain at rest, pain with movement, of the low back area, 17:03 All other systems are negative, Exam: 17:03 Constitutional: This is a well developed, well nourished patient who is awake, alert, kb and in no acute distress. Head/Face: Normocephalic, atraumatic. ENT: Moist Mucous membranes Cardiovascular: Regular rate Respiratory: Respirations even and unlabored. No increased work of breathing. Talking in full sentences Skin: Warm, dry with normal turgor. Normal color. MS/ Extremity: Pulses equal, no cyanosis. Neurovascular intact. Full, normal range of motion. Neuro: Awake and alert, GCS 15, oriented to person, place, time, and situation. Moves all extremities. Normal gait. 17:03 Back: pain, that is mild, that is moderate, of the left low back and right low back, ROM is painful, normal spinal alignment noted, vertebral tenderness, is not appreciated, Vital Signs: 16:47 BP 166 / 97; Pulse 96; Resp 18; Temp 98.2(O); Pulse Ox 99% ; Weight 90.72 kg; Height 5 hb ft. 11 in. ; Pain 3/10; 16:47 Body Mass Index 27.89 (90.72 kg, 180.34 cm) hb 16:47 Pain Scale: Adult hb MDM: 16:50 Patient medically screened. kb 17:05 Differential diagnosis: arthritis, strain, sciatica, contusion, Herniated disc. Data kb reviewed: vital signs, nurses notes. Test considered but Not performed: Labs: Urinalysis considered but patient has no urinary symptoms, no CVA tenderness. X-ray: X-ray lumbar spine considered but patient has no vertebral tenderness. Counseling: I had a detailed discussion with the patient and/or guardian regarding the historical points, exam findings, and any diagnostic results supporting the discharge/admit diagnosis, the need for outpatient follow up, a family practitioner, to return to the emergency department if symptoms worsen or persist or if there are any questions or concerns that arise at home. Administered Medications: No medications were administered Disposition Summary: 11/16/23 16:57 Discharge Ordered Notes: Location: Home kb Condition: Stable kb Diagnosis - Low back pain kb Followup: kb - With: Emergency Department - When: As needed - Reason: Worsening of condition Followup: kb - With: Private Physician - When: 2 - 3 days - Reason: Recheck today's complaints, Continuance of care, Re-evaluation by your physician Discharge Instructions: - Discharge Summary Sheet kb - Acute Back Pain, Adult kb - Musculoskeletal Pain kb Forms: - Work release form kb - Medication Reconciliation Form kb - Thank You Letter kb - Antibiotic Education kb - Prescription Opioid Use kb - Patient Portal Instructions kb - Leadership Thank You Letter kb Prescriptions: - Diclofenac Sodium 75 mg Oral tablet, delayed release (enteric coated) - take 1 tablet ORAL route 2 times per day As needed; 30 tablet; Refills: 0, Product Selection Permitted - orphenadrine citrate 100 mg Oral Tablet Sustained Release - take 1 tablet ORAL route 2 times per day As needed; 20 tablet; Refills: 0, kb Product Selection Permitted Signatures: Shannan South, YANELY QUEZADA-CkRoxy Russell, JUNITO RN
--- NOTE | 2023-11-16 16:58 | ER ---
Nurse's Notes [facility] Name: Avel Yen Age: 53 yrs Sex: Male : 1970 Arrival Date: 11/16/2023 Time: 16:36 Bed IW2 Private MD: Diagnosis: Low back pain Presentation: 11/16 16:47 Chief complaint: Patient states: Low back pain since yesterday, had an injury when hb young, started working at [employer], was lifting dishes yesterday and has had back pain since. Coronavirus screen: Vaccine status: Patient reports receiving the 2nd dose of the covid vaccine. Ebola Screen: Patient denies travel to an Ebola-affected area in the 21 days before illness onset. Initial Sepsis Screen: Does the patient meet any 2 criteria? HR > 90 bpm. No. Patient's initial sepsis screen is negative. Does the patient have a suspected source of infection? No. Patient's initial sepsis screen is negative. Risk Assessment: Do you want to hurt yourself or someone else? Patient reports no desire to harm self or others. Onset of symptoms was November 15, 2023. 16:47 Method Of Arrival: Ambulatory hb 16:47 Acuity: DAYANARA 3 hb Historical: - Allergies: 16:49 NKDA; hb - PMHx: 16:49 Hypertension; Diabetes - NIDDM; bowel obstruction; hb - Immunization history:: Client reports receiving the 2nd dose of the Covid vaccine. - Social history:: Smoking status: Patient reports the use of cigarette tobacco products, smokes one pack cigarettes per day. Vital Signs: 16:47 BP 166 / 97; Pulse 96; Resp 18; Temp 98.2(O); Pulse Ox 99% ; Weight 90.72 kg; Height 5 hb ft. 11 in. ; Pain 3/10; 16:47 Body Mass Index 27.89 (90.72 kg, 180.34 cm) hb 16:47 Pain Scale: Adult hb ED Course: 16:41 Patient arrived in ED. ts1 16:49 Triage completed. hb 16:50 Shannan South FNP-C [facility]. kb 16:50 Medhat Saldana MD is Attending Physician. kb 16:50 Arm band placed on left wrist. hb Administered Medications: No medications were administered Outcome: 16:57 Discharge ordered by . kb 17:27 Patient left the ED. hb Signatures: Shannan South, DAMIEN-C ADMINISTRATIVE SUPPORT TECHNICIAN-CkRoxy Russell, RN RN hb Lory Griffiths, [facility] ts1
[2023-11-16 17:40] VITALS: BP 166/97; TEMP 98.2; O2SAT 99
== END ==
LOC: ER 16:36
DX: M54.50 Low back pain, unspecified (principal)
CPT/HCPCS: 99281

== ENCOUNTER 2025-02-09 19:59 | Observation (INO) | payer SELFPAY ==
--- OUTSIDE RECORDS SUMMARY | 2025-02-09 20:03 | XMS REPORT | Continuity of Care Document ---
Author Name Unknown Address [address] [place] [address] [place] [address] [address] [place] [address] Care Team Providers Care Data Abstractor Name Role Phone PCP, NO Primary Care Physician Unavailab GREGORIO Palumbo Attending Clinician Unavailable Encounters Start Date/Time End Date/Time Encounter Type Admission Type Attending Clinicians Care Facility Care Department Encounter ID Source 2024-02-20 13:03:00 2024-02-20 16:50:00 Emergency ER GREGORIO HUNTER [facility] [id number] SHERIN Nguyen [facility]
--- NOTE | 2025-02-09 20:57 | RAD REPORT ---
EXAMINATION: Stone Protocol CLINICAL INDICATION: Male, 54 years old.ABD PAIN TECHNIQUE: CT abdomen and pelvis was performed, without IV contrast, as per department protocol. Axia l, sagittal and coronal reconstructions were obtained using a stone protocol. One or more of the following dose reduction techniques were used: Automated exposure control, adjustment of the mA and/o r kV according to the patient size, and/or iterative reconstruction. Unless otherwise specified, incidental findings do not require dedicated imaging follow-up. [id number]. IV CONTRAST: Not administered. COMPARISON: 06/03/2019 FINDINGS: The lack of intravenous contrast limits the sensitivity of this exam for evaluation of solid visceral organs, vascular structures, and retroperitoneum. LOWER CHEST: No acute process identified.No significant pericardial effusion. UPPER GI: No significant abnormality. LIVER: Hepatic steatosis, but otherwise unremarkable. GALLBLADDER/BILE DUCTS: No biliary ductal dilatation.? PANCREAS: No mass, ductal dilation, or lady-pancreatic fluid. SPLEEN: Unremarkable. ADRENALS: No adrenal masses. KIDNEYS AND URETERS: No hydronephrosis.Limited evaluation for renal lesions in the absence of IV cont rast.No renal calculi.No ureteral calculi. ABDOMINAL AORTA AND OTHER VESSELS: Normal caliber aorta and IVC. PERITONEUM: No abnormal free fluid. No free air. LYMPH NODES: No pathologic lymphadenopathy. ABDOMINAL WALL: Fat containing inguinal hernias. SMALL BOWEL/COLON: Small bowel has normal course and caliber. No colonic wall thickening or pericolon ic inflammatory changes.Normal appendix. Mild diverticulosis without diverticulitis. URINARY BLADDER: Underdistended but grossly unremarkable. REPRODUCTIVE ORGANS: No pathologic process. MUSCULOSKELETAL: No acute or suspicious osseous abnormality. Scattered sclerotic foci likely reflecti ng bone islands. ADDITIONAL FINDINGS: None. IMPRESSION: No acute findings within the abdomen or pelvis. No appendicitis.
[2025-02-09] MEDS ORDERED: KETOROLAC 30 MG/ML INJ ONE (21:29)
[2025-02-09] MEDS ORDERED: Ringers Lactate 1,000 ML IV ONE ×2 (21:29→23:16)
[2025-02-09 21:38] LABS: Absolute Basophils 0.2 K/uL (0-0.5); Absolute Eosinophils 0.1 K/uL (0-0.5); Absolute Lymphocytes (CBC) 3.8 K/uL (0.7-4.9); MPV 7.1 fL (7.6-11.3)
[2025-02-09 21:44] LABS: Absolute Neutrophil 11.5 K/uL (1.8-8.0); Eosinophils % 0.5 % (0-4.4); Hematocrit 45.6 % (39.6-49.0); Lymphocytes % 22.9 % (15.3-44.8); MCH 29.3 pg (27.0-35.0); MCV 83.6 fL (80-100); Monocytes % 6.1 % (3.3-12.3); Neutrophils % 69.5 % (41.7-73.7); Nucleated Red Blood Cells % 0.1 % (0-0); Platelets 327 thou/uL (152-406); RBC Red Blood Cell Count 5.46 M/uL (4.33-5.43); Red Cell Distribution Width 13.9 % (12.1-15.2)
[2025-02-09] MEDS ORDERED: DIAZEPAM 5 MG TABLET ONE (22:06)
[2025-02-09 22:58] LABS: Albumin 4.7 g/dL (3.4-5.0); Albumin/Globulin Ratio 1.3 (1.1-1.8); Anion Gap 14.1 mEq/L (5.0-15.0); Bilirubin Total 0.8 mg/dL (0.2-1.0); Globulin 3.7 g/dL (2.3-3.5); Potassium 3.1 mEq/L (3.5-5.1); Protein, Total 8.4 g/dL (6.4-8.2)
--- NOTE | 2025-02-09 23:09 | EDPHYS ---
Physician Documentation [facility] Name: Avel Yen Age: 54 yrs Sex: Male : 1970 Arrival Date: 02/09/2025 Time: 19:59 Bed 23 Private MD: ED Physician Odell Worthington HPI: 02/09 21:13 This 54 yrs old Male presents to ER via Wheelchair with complaints of kb Abdominal Pain, Back Pain. 21:13 Pt is a 54 year old male who presents for LLQ pain that radiates to back with muscle kb spasms to arms and legs. States it started today while working. 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 . Historical: - Allergies: 20:24 NKDA; me1 - PMHx: 20:24 bowel obstruction; Diabetes - NIDDM; Hypertension; me1 - PSHx: 20:24 None; me1 - Immunization history:: Adult Immunizations up to date. - Infectious Disease History:: Denies. - Social history:: Smoking status: Reported history of juuling and/or vaping. ROS: 21:15 Constitutional: As per HPI kb Exam: 21:15 Constitutional: This is a well developed, well nourished patient who is awake, alert, kb and in no acute distress. Head/Face: Normocephalic, atraumatic. ENT: Moist Mucous membranes Cardiovascular: Regular rate Respiratory: Respirations even and unlabored. No increased work of breathing. Talking in full sentences Skin: Warm, dry with normal turgor. Normal color. MS/ Extremity: Pulses equal, no cyanosis. Neurovascular intact. Full, normal range of motion. Neuro: Awake and alert, GCS 15, oriented to person, place, time, and situation. 21:15 Abdomen/GI: Inspection: abdomen appears normal, Bowel sounds: normal, Palpation: soft, in all quadrants, mild abdominal tenderness, in the left lower quadrant, Vital Signs: 20:20 BP 127 / 89; Pulse 92; Resp 20; Temp 98.4; Pulse Ox 97% ; Weight 111.13 kg; Height 5 me1 ft. 11 in. ; Pain 10/10; 21:37 BP 131 / 73; Pulse 67; Resp 17; Temp 98.4; Pulse Ox 95% ; Pain 8/10; bm8 22:36 BP 108 / 61; Pulse 66; Resp 18; Temp 98.4; Pulse Ox 91% ; Pain 4/10; bm8 23:35 BP 120 / 66; Pulse 64; Resp 18; Temp 98.4; Pulse Ox 94% ; Pain 3/10; bm8 20:20 Body Mass Index 34.17 (111.13 kg, 180.34 cm) me1 20:20 Pain Scale: Adult me1 21:37 Pain Scale: Adult bm8 22:36 Pain Scale: Adult bm8 23:35 Pain Scale: Adult bm8 [place] Coma Score: 21:37 Eye Response: spontaneous(4). Motor Response: obeys commands(6). Verbal Response: bm8 oriented(5). Total: 15. 22:36 Eye Response: spontaneous(4). Motor Response: obeys commands(6). Verbal Response: bm8 oriented(5). Total: 15. 23:35 Eye Response: spontaneous(4). Motor Response: obeys commands(6). Verbal Response: bm8 oriented(5). Total: 15. MDM: 20:10 Medical Screening Exam initiated kb 21:15 Differential diagnosis: diverticulitis, non-specific abd pain, Ureterolithiasis, kb Rhabdomyolysis, abnormal electrolytes. Data reviewed: vital signs, nurses notes. 23:07 Consideration of Admission/Observation Patient was admitted/placed on observation. kb Escalation of care including admission/observation considered. Management of patient was discussed with the following: Hospitalist: Syeda accepts pt for admission under Dr Kurtz. Counseling: I had a detailed discussion with the patient and/or guardian regarding the historical points, exam findings, and any diagnostic results supporting the discharge/admit diagnosis, lab results, radiology results, the need for further work-up and treatment in the hospital. 02/09 20:22 Order name: CBC with Diff; Complete Time: 21:48 kb 02/09 20:22 Order name: CMP; Complete Time: 23:00 kb 02/09 20:22 Order name: CPK; Complete Time: 23:00 kb 02/09 21:48 Order name: UA Rfx Michael Cult if indicated; Complete Time: 23:28 kb 02/10 01:44 Order name: Lactic Dehydrogenase EDMS 02/10 01:44 Order name: Troponin High Sensitivity EDMS 02/10 05:11 Order name: CBC with Automated Diff EDMS 02/10 05:16 Order name: Comprehensive Metabolic Panel EDMS 02/10 12:28 Order name: Glucose, Ancillary Testing EDMS 02/10 13:10 Order name: CBC with Automated Diff EDMS 02/10 14:10 Order name: Basic Metabolic Panel EDMS 02/09 20:22 Order name: CT Stone Protocol; Complete Time: 20:57 kb 02/09 20:22 Order name: IV Saline Lock; Complete Time: 21:42 kb 02/09 20:22 Order name: Labs collected and sent; Complete Time: 21:42 kb Administered Medications: 21:26 CANCELLED (Patient ): ns 0.9% 1000 ml IV at 1 bolus Per protocol; to be given as kb a bolus over 60 minutes 21:42 Drug: Ketorolac IVP 15 mg IVP once Route: IVP; Site: left antecubital; bm8 23:31 Follow up: Response: No adverse reaction bm8 21:42 Drug: Ringers - Lactated Ringers Solution IV 1000 ml IV at bolus bolus; to be given as bm8 a bolus over 60 minutes Route: IV; Rate: bolus; Site: left antecubital; 22:09 Follow up: Response: No adverse reaction; IV Status: Completed infusion bm8 22:09 Drug: Diazepam PO 5 mg PO once Route: PO; bm8 22:37 Follow up: Response: No adverse reaction bm8 23:31 Drug: Potassium Chloride PO 40 mEq PO once Route: PO; bm8 02/10 00:27 Follow up: Response: No adverse reaction bm8 02/09 23:31 Drug: Ringers - Lactated Ringers Solution IV 1000 ml IV at bolus bolus; to be given as bm8 a bolus over 60 minutes Route: IV; Rate: bolus; Site: left antecubital; 02/10 00:27 Follow up: Response: No adverse reaction; IV Status: Completed infusion bm8 00:48 Drug: Pantoprazole IVP 40 mg IVP once Route: IVP; Site: left antecubital; bm8 00:48 Follow up: Response: No adverse reaction bm8 Disposition: 01:53 Co-signature as Attending Physician, Odell Worthington MD I agree with the assessment sp4 and plan of care. I reviewed the patient's care provided by the Advanced Practice Provider and agree with the diagnosis and treatment plan. Disposition Summary: 02/09/25 23:09 Hospitalization Ordered Notes: Hospitalization Status: Observation kb Provider: Jose Kurtz Condition: Stable kb Problem: new kb Symptoms: are unchanged kb Bed/Room Type: Standard kb Location: [facility] ER HOLD(02/10/25 00:08) vc1 Room Assignment: ERHOLD-(02/10/25 00:08) vc1 Diagnosis - Acute kidney failure, unspecified kb Forms: - Medication Reconciliation Form kb - SBAR form kb - Leadership Thank You Letter kb Critical care time excluding procedures: 02/09 23:08 Critical care time: Bedside Care: 11 minutes, Consultation: 10 minutes, Family kb Intervention: 10 minutes. Total time: 31 minutes Signatures: Dispatcher [employer] EDShannan Avila, DAMIEN-C WIPER BLENDER-CkMeli Gomez RN RN vc1 Odell Worthington MD MD sp4 Belle Oliver RN RN me1 Jordan Mendiola, RN RN bm8 Corrections: (The following items were deleted from the chart) 20:22 20:22 CBC+H.LAB.BRZ ordered. EDMS EDMS 20:22 20:22 COMPREHENSIVE METABOLIC PANEL+C.LAB.BRZ ordered. EDMS EDMS 20:22 20:22 CREATINE PHOSPHOKINASE+C.LAB.BRZ ordered. EDMS EDMS 20:22 20:22 Stone Protocol+CT.RAD.BRZ ordered. EDMS EDMS 21:26 20:22 NS 0.9% IV 1000 ml IV at 1 bolus Per protocol; to be given as a bolus over 60 kb minutes ordered. kb 02/10 00:08 02/09 23:09 Telemetry/MedSurg (observation) kb vc1 02/10 00:08 02/09 23:09 kb vc1
--- NOTE | 2025-02-09 23:09 | ER ---
Nurse's Notes [facility] Name: Avel Yen Age: 54 yrs Sex: Male : 1970 Arrival Date: 02/09/2025 Time: 19:59 Bed 23 Private MD: Diagnosis: Acute kidney failure, unspecified Presentation: 02/09 20:20 Chief complaint: Patient states: diffuse abdominal pain that radiates to his back with me1 nausea/vomiting. muscle cramps in extremities also. 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 Coronavirus screen: Vaccine status: Patient reports receiving the 2nd dose of the covid vaccine. Ebola Screen: No symptoms or risks identified at this time. Initial Sepsis Screen: Does the patient meet any 2 criteria? HR > 90 bpm. Does the patient have a suspected source of infection? No. Patient's initial sepsis screen is negative. Risk Assessment: Do you want to hurt yourself or someone else? Patient reports no desire to harm self or others. Onset of symptoms was February 09, 2025 at 15:30. 20:20 Method Of Arrival: Wheelchair me1 20:20 Acuity: DAYANARA 3 me1 Historical: - Allergies: 20:24 NKDA; me1 - PMHx: 20:24 bowel obstruction; Diabetes - NIDDM; Hypertension; me1 - PSHx: 20:24 None; me1 - Immunization history:: Adult Immunizations up to date. - Infectious Disease History:: Denies. - Social history:: Smoking status: Reported history of juuling and/or vaping. Screenin:37 [facility] ED Fall Risk Assessment (Adult) History of falling in the last 3 months, bm8 including since admission No falls in past 3 months (0 pts) Confusion or Disorientation No (0 pts) Intoxicated or Sedated No (0 pts) Impaired Gait No (0 pts) Mobility Assist Device Used No (0 pt) Altered Elimination No (0 pt) Score/Fall Risk Level 0 - 2 = Low Risk Oriented to surroundings, Maintained a safe environment, Educated pt \T\ family on fall prevention, incl call for assistance when getting out of bed, Assessed \T\ reinforced patient's understanding of fall precautions, Hourly rounding (assess needs \T\ fall precautionary measures) done, Used ambulatory aids as needed (educated on \T\ assisted with), Used gait belt as appropriate. Abuse screen: Denies threats or abuse. Nutritional screening: No deficits noted. Tuberculosis screening: No symptoms or risk factors identified. Assessment: 21:37 General: Appears in no apparent distress. comfortable, Behavior is calm, cooperative, bm8 appropriate for age. Pain: Complains of pain in abdomen Pain currently is 8 out of 10 on a pain scale. Neuro: No deficits noted. Level of Consciousness is awake, alert, obeys commands, Oriented to person, place, time, situation. Cardiovascular: Denies chest pain, Heart tones S1 S2 present Capillary refill < 3 seconds in bilateral fingers Patient's skin is warm and dry. Respiratory: Airway is patent Respiratory effort is even, unlabored, Respiratory pattern is regular, symmetrical, Breath sounds are clear bilaterally. GI: Abdomen is flat, distended, Bowel sounds present X 4 quads. Abdomen is tender to palpation in left lower quadrant. : No signs and/or symptoms were reported regarding the genitourinary system. EENT: No deficits noted. No signs and/or symptoms were reported regarding the EENT system. Derm: No deficits noted. No signs and/or symptoms reported regarding the dermatologic system. Musculoskeletal: Reports generalized cramping and weakness. 22:36 Reassessment: Patient appears in no apparent distress at this time. Patient and/or bm8 family updated on plan of care and expected duration. Pain level reassessed. Patient is alert, oriented x 3, equal unlabored respirations, skin warm/dry/pink. 23:35 Reassessment: Patient appears in no apparent distress at this time. Patient and/or bm8 family updated on plan of care and expected duration. Pain level reassessed. Patient is alert, oriented x 3, equal unlabored respirations, skin warm/dry/pink. Patient states symptoms have improved. Vital Signs: 20:20 BP 127 / 89; Pulse 92; Resp 20; Temp 98.4; Pulse Ox 97% ; Weight 111.13 kg; Height 5 me1 ft. 11 in. ; Pain 10/10; 21:37 BP 131 / 73; Pulse 67; Resp 17; Temp 98.4; Pulse Ox 95% ; Pain 8/10; bm8 22:36 BP 108 / 61; Pulse 66; Resp 18; Temp 98.4; Pulse Ox 91% ; Pain 4/10; bm8 23:35 BP 120 / 66; Pulse 64; Resp 18; Temp 98.4; Pulse Ox 94% ; Pain 3/10; bm8 20:20 Body Mass Index 34.17 (111.13 kg, 180.34 cm) me1 20:20 Pain Scale: Adult me1 21:37 Pain Scale: Adult bm8 22:36 Pain Scale: Adult bm8 23:35 Pain Scale: Adult bm8 [place] Coma Score: 21:37 Eye Response: spontaneous(4). Motor Response: obeys commands(6). Verbal Response: bm8 oriented(5). Total: 15. 22:36 Eye Response: spontaneous(4). Motor Response: obeys commands(6). Verbal Response: bm8 oriented(5). Total: 15. 23:35 Eye Response: spontaneous(4). Motor Response: obeys commands(6). Verbal Response: bm8 oriented(5). Total: 15. ED Course: 20:08 Patient arrived in ED. gm2 20:09 Shannan South FNP-C [facility] kb 20:10 Odell Worthington MD is Attending Physician. kb 20:20 Arm band placed on Patient placed in an exam room. me1 20:24 Triage completed. me1 20:40 CT Stone Protocol In Process Unspecified. EDMS 21:36 Jordan Mendiola, RN is Primary Nurse. bm8 21:37 Patient has correct armband on for positive identification. Placed in gown. Bed in low bm8 position. Call light in reach. Side rails up X 1. Adult w/ patient. Client placed on continuous cardiac and pulse oximetry monitoring. NIBP monitoring applied. Pulse ox on. NIBP on. Door closed. Noise minimized. Pillow given. Verbal reassurance given. Head of bed elevated. 21:37 No provider procedures requiring assistance completed. Initial lab(s) drawn, by mn, bmGabriela sent to lab. Inserted saline lock: 20 gauge in left antecubital area, using aseptic technique. Blood collected. Flushed with 10 mL NS. Patient maintains SpO2 saturation greater than 95% on room air. 23:08 Jose Kurtz MD is Hospitalizing Provider. kb 02/10 00:48 Provided Education on: need for admission. bm8 00:48 Patient admitted, IV remains in place. bm8 Administered Medications: 02/09 21:26 CANCELLED (Patient ): ns 0.9% 1000 ml IV at 1 bolus Per protocol; to be given as kb a bolus over 60 minutes 21:42 Drug: Ketorolac IVP 15 mg IVP once Route: IVP; Site: left antecubital; bm8 23:31 Follow up: Response: No adverse reaction bm8 21:42 Drug: Ringers - Lactated Ringers Solution IV 1000 ml IV at bolus bolus; to be given as bm8 a bolus over 60 minutes Route: IV; Rate: bolus; Site: left antecubital; 22:09 Follow up: Response: No adverse reaction; IV Status: Completed infusion bm8 22:09 Drug: Diazepam PO 5 mg PO once Route: PO; bm8 22:37 Follow up: Response: No adverse reaction bm8 23:31 Drug: Potassium Chloride PO 40 mEq PO once Route: PO; bm8 02/10 00:27 Follow up: Response: No adverse reaction bm8 02/09 23:31 Drug: Ringers - Lactated Ringers Solution IV 1000 ml IV at bolus bolus; to be given as bm8 a bolus over 60 minutes Route: IV; Rate: bolus; Site: left antecubital; 02/10 00:27 Follow up: Response: No adverse reaction; IV Status: Completed infusion bm8 00:48 Drug: Pantoprazole IVP 40 mg IVP once Route: IVP; Site: left antecubital; bm8 00:48 Follow up: Response: No adverse reaction bm8 Medication: 02/09 21:37 VIS not applicable for this client. bm8 Outcome: 23:09 Decision to Hospitalize by Provider. kb 02/10 00:48 Admitted to ER Hold. Please see [facility] for further documentation. bm8 Condition: stable Instructed on the need for admit, Demonstrated understanding of instructions, follow-up care, 14:43 Patient left the ED. iw Signatures: Dispatcher [employer] Shannan Mcdaniel, COAT CHECK ATTENDANT-C COAT CHECK ATTENDANT-CkHoa Scott, JUNITO RN Belle Oliver RN RN mn1 Leah Denton gm2 Jordan Mendiola RN RN bm8 Corrections: (The following items were deleted from the chart) 02/09 20:25 20:20 Pulse 92bpm; Resp 20bpm; Pulse Ox 97%; Temp 98.4F; 111.13 kg; Height 5 ft. 11 me1 in.; BMI: 34.1; Pain 10, Adult; me1
[2025-02-09] MEDS ORDERED: POTASSIUM CL SA 10 MEQ TAB PO ONE (23:16)
[2025-02-09 23:26] LABS: Calcium Oxalate Crystals- Ur Moderate /HPF (None Seen); Specific Gravity 1.028 (1.005-1.030); Sqamous Epithelial <5 /HPF (None Seen); Urine Bacteria <20 /HPF (<20); Urine Bilirubin NEGATIVE (Negative); Urine Blood Negative (Negative); Urine Clarity Extremely Turbid (Clear); Urine Color Yellow (Yellow); Urine Culture Reflex Order NOT NEEDED; Urine Glucose TRACE (Negative); Urine Ketones NEGATIVE (Negative); Urine Microscopic Reflex YN ORDER UMIC; Urine Mucus 4+ /HPF (None Seen); Urine Nitrite NEGATIVE (Negative); Urine Protein 1+ (Negative); Urine RBC None Seen /HPF (None Seen); Urine Urobilinogen 2+ (Normal); Urine pH 5.5 (5.0-7.0)
[2025-02-10] MEDS ORDERED: PANTOPRAZOLE 40 MG INJ ONE (00:04)
[2025-02-10] MEDS ORDERED: ONDANSETRON 4 MG/2 ML VIAL IV PRN (00:20)
--- NOTE | 2025-02-10 00:32 | P.HP ---
Certification for Inpatient Patient admitted to: Observation With expected LOS: <2 Midnights Patient will require the following post-hospital care: None Practitioner: I am a practitioner with admitting privileges, knowledge of patient current condition, hospital course, and medical plan of care. Services: Services provided to patient in accordance with Admission requirements found in Title 42 Section 412.3 of the Code of Federal Regulations Patient History Date of Service: 02/10/25 Reason for admission: SHORTY, abdominal pain with cramping, History of Present Illness: Patient is a 54-year-old male, with past medical history of HTN, type 2 diabetes mellitus, patient was supposed to be on metformin 500 mg p.o. twice daily, but he states he stopped taking the medication a long time ago after he came out from nursing home. When inquired from the patient why he stopped taking his medication he states that he does not want to take the med because "does not feel good taking the medication". Patient appears to be noncompliant with his treatment protocol. He states he does not have any PCP. Patient reports to the ER today complaining of abdominal pain left lower quadrant. Patient states while he was at work today around 3:30 PM he started having left lower quad abdominal pain, and mid epigastric pain with no associated nausea or vomiting. He states he reported to ER because the pain in his left lower abdomen would not go away patient denies of any history of renal disease. Patient creatinine is 2.58, BUN 30, GFR 29. Patient abdomen soft on palpation, bowel sounds present all 4 quadrants, patient CT of the abdomen impression-no acute findings within the abdomen or pelvis. No appendicitis. Patient with tender abdomen mostly left lower quadrant on palpation. Patient WBC 16.60. Allergies No Known Allergies Allergy (Verified 01/22/18 19:42) Home Medications: Ciprofloxacin HCl 500 mg PO Q12HP #8 tablet 01/09/19 metroNIDAZOLE [Flagyl*] 500 mg PO Q8H #12 tablet 01/09/19 - Past Medical/Surgical History Diabetic: No -: enteritis -: Type 2 diabetes mellitus. -: Hypertension. -: Kidney stones. Past Surgical History: Reviewed- Non-Contributory - Family History Father -: Cancer - Social History Alcohol use: No CD- Drugs: No Caffeine use: Yes Review of Systems Gastrointestinal: Abdominal Pain Physical Examination - Physical Exam General: Alert, Oriented x3, Cooperative HEENT: Atraumatic, Normocephalic, PERRLA, Mucous membr. moist/pink, Sclerae nonicteric Neck: Supple, 2+ carotid pulse no bruit, JVD not distended, No Thyromegaly, Without JVD or thyroid abnormality Respiratory: Clear to auscultation bilaterally, Normal air movement Cardiovascular: No edema, Normal S1 S2, No gallops, No rubs, No murmurs Capillary refill: <2 Seconds Gastrointestinal: Normal bowel sounds, No ascites, Tenderness Musculoskeletal: No clubbing, No swelling, No contractures, No erythema, No tenderness, No warmth Integumentary: No rashes, No breakdown, No significant lesion, No tenderness/swelling, No erythema, No warmth, No cyanosis Neurological: Normal gait, Normal speech, Normal strength at 5/5 x4 extr, Normal tone, Sensation intact, Cranial nerves 3-12 intact, Normal reflexes 2+, Normal affect Lymphatics: No axilla or inguinal lymphadenopathy External genitalia: Non-tender - Studies Laboratory Data (last 24 hrs) 02/09/25 02/09/25 22:05 21:27 WBC 16.60 H Hgb 16.0 Hct 45.6 Plt Count 327 Sodium 133 L Potassium 3.1 L BUN 30 H Creatinine 2.58 H Glucose 133 H Total Bilirubin 0.8 AST 25 ALT 42 Alkaline Phosphatase 77 Male Exam - Male Exam Testicular exam: Non-tender Assessment and Plan - Plan Patient is a 54-year-old male reports to ER complaining of pain left lower quadrant, and epigastric pain with no associated shortness of breath. Patient troponin negative, EKG negative. Patient CT abdomen impression-no acute findings within the abdomen or pelvis. No appendicitis. Patient WBC 16.60 (1)Abdominal pain/epigastric, not cardiac related. Even though the patient CT of the abdomen is negative, is still concerning with the fact that patient WBC is 16.60, and patient still complaining of the abdomen on admission assessment, will proceed by having patient placed on antibiotics intravenous at this time. -Prophylactic antibiotics metronidazole 500 mg IV every 6 hours. -Ordered start initial dose of Protonix 40 mg IV x 1 followed with Protonix 40 mg p.o. daily. Patient states he feels much relieved from the epigastric pain after receiving the Protonix. -IV D5 half NS at 125ml/ hr. -Admit to observation. -Ordered troponin just to rule out cardiac related pathology, and patient troponin is negative. (2) chronic type 2 diabetes mellitus. -Order sliding scale coverage moderate. Patient does not want to take metformin at this time. (3) Explained entire treatment plan to the patient, solicit questions answered and voiced understanding. Discharge Plan: Home Plan to discharge in: 48 Hours - Advance Directives Does patient have a Living Will: No Does patient have a Durable POA for Healthcare: No - Code Status/Comfort Care Code Status Assessed: Yes Code Status: Full Code
[2025-02-10 00:48] VITALS: BMI 34.2
[2025-02-10] MEDS ORDERED: METRONIDAZOLE 500mg IVPB 500 MG/100 ML BAG IV ONE ×2 (00:53→08:33)
[2025-02-10] MEDS ORDERED: HEPARIN 5000 UNIT/ML 1 ML VIAL ONE ×2 (00:53→08:33)
[2025-02-10] MEDS ORDERED: D5 0.45 NS 1,000 ML IV ONE ×2 (00:53→08:43)
[2025-02-10] MEDS: HEPARIN 5000 UNIT/ML 1 ML VIAL SQ SCH (00:56)
[2025-02-10] MEDS: METRONIDAZOLE 500mg IVPB 500 MG/100 ML BAG IV ONE (01:00)
[2025-02-10] MEDS: D5 0.45 NS 1,000 ML IV SCH (01:00)
[2025-02-10 01:44] LABS: Troponin High Sensitivity 5.8 pg/mL (<58.9)
[2025-02-10 04:44] VITALS: TEMP 98.2
[2025-02-10 05:06] LABS: Absolute Basophils 0.1 K/uL (0-0.5); Absolute Eosinophils 0.3 K/uL (0-0.5); Absolute Monocytes 0.9 K/uL (0.1-1.3); Absolute Neutrophil 6.7 K/uL (1.8-8.0); Basophils % 0.7 % (0-1.3); Eosinophils % 2.6 % (0-4.4); Hematocrit 39.7 % (39.6-49.0); Hemoglobin 13.8 g/dL (13.6-17.9); Lymphocytes % 33.2 % (15.3-44.8); MCH 29.2 pg (27.0-35.0); MCHC 34.7 g/dL (32.0-36.0); MPV 7.3 fL (7.6-11.3); Monocytes % 7.7 % (3.3-12.3); Neutrophils % 55.8 % (41.7-73.7); Nucleated Red Blood Cells % 0.1 % (0-0); Platelets 276 thou/uL (152-406); RBC Red Blood Cell Count 4.73 M/uL (4.33-5.43)
[2025-02-10 05:14] LABS: Albumin 4.1 g/dL (3.4-5.0); Albumin/Globulin Ratio 1.2 (1.1-1.8); Anion Gap 10.1 mEq/L (5.0-15.0); Globulin 3.3 g/dL (2.3-3.5); Potassium 3.1 mEq/L (3.5-5.1); Protein, Total 7.4 g/dL (6.4-8.2)
[2025-02-10] MEDS ORDERED: INSULIN REGULAR (HUMAN) 100 UNIT/ML SQ SCH (07:30)
[2025-02-10] MEDS: INSULIN REGULAR (HUMAN) 100 UNIT/ML SQ SCH (07:30)
[2025-02-10] MEDS: PANTOPRAZOLE 40MG TABLET PO SCH (07:30)
[2025-02-10] MEDS: POTASSIUM 25 MEQ EFFERV TAB PO ONE (08:02)
[2025-02-10 08:19] VITALS: BP 102/55
[2025-02-10] MEDS ORDERED: PANTOPRAZOLE 40MG TABLET PO ONE (08:32)
[2025-02-10] MEDS ORDERED: ACETAMINOPHEN 325 MG TABLET ONE (08:32)
[2025-02-10] MEDS: ACETAMINOPHEN 325 MG TABLET PO PRN (08:35)
[2025-02-10] MEDS: METRONIDAZOLE 500mg IVPB 500 MG/100 ML BAG IV SCH (08:40)
[2025-02-10] MEDS ORDERED: POTASSIUM 25 MEQ EFFERV TAB ONE (08:43)
[2025-02-10] MEDS: PNEUMOCOCCAL VACCINE 0.5 ML IMVAC ONE (09:00)
[2025-02-10 13:08] LABS: Absolute Basophils 0.1 K/uL (0-0.5); Absolute Eosinophils 0.3 K/uL (0-0.5); Absolute Monocytes 0.6 K/uL (0.1-1.3); Absolute Neutrophil 5.8 K/uL (1.8-8.0); Basophils % 0.7 % (0-1.3); Eosinophils % 2.8 % (0-4.4); Hematocrit 40.5 % (39.6-49.0); Hemoglobin 14.2 g/dL (13.6-17.9); Lymphocytes % 30.6 % (15.3-44.8); MCH 29.5 pg (27.0-35.0); MCV 84.4 fL (80-100); Monocytes % 6.3 % (3.3-12.3); Neutrophils % 59.6 % (41.7-73.7); Nucleated Red Blood Cells % 0.1 % (0-0); Platelets 274 thou/uL (152-406); Red Cell Distribution Width 13.9 % (12.1-15.2)
[2025-02-10 13:22] LABS: Anion Gap 10.9 mEq/L (5.0-15.0); Potassium 3.9 mEq/L (3.5-5.1)
--- NOTE | 2025-02-10 13:43 | P.DS ---
Admission Date: 02/10/25 Discharge Date: 02/10/25 Disposition: ROUTINE DISCHARGE Discharge Condition: GOOD Reason for Admission: SHORTY, abdominal pain with cramping, Brief History of Present Illness: 54-year-old male, with past medical history of HTN, type 2 diabetes mellitus, patient was supposed to be on metformin 500 mg p.o. twice daily, but he states he stopped taking the medication a long time ago after he came out from [facility]. When inquired from the patient why he stopped taking his medication he states that he does not want to take the med because "does not feel good taking the medication". Patient appears to be noncompliant with his treatment protocol. He states he does not have any PCP. Patient reports to the ER today complaining of abdominal pain left lower quadrant. Patient states while he was at work today around 3:30 PM he started having left lower quad abdominal pain, and mid epigastric pain with no associated nausea or vomiting. He states he reported to ER because the pain in his left lower abdomen would not go away patient denies of any history of renal disease. Patient creatinine is 2.58, BUN 30, GFR 29. Patient abdomen soft on palpation, bowel sounds present all 4 quadrants, patient CT of the abdomen impression-no acute findings within the abdomen or pelvis. No appendicitis. Patient with tender abdomen mostly left lower quadrant on palpation. Patient WBC 16.60. - Physical Exam General: Alert, Oriented x3, Cooperative HEENT: Atraumatic, Normocephalic, PERRLA, Mucous membr. moist/pink, Sclerae nonicteric Neck: Supple, 2+ carotid pulse no bruit, JVD not distended, Respiratory: Clear to auscultation bilaterally, Normal air movement Cardiovascular: No edema, Normal S1 S2, No gallops, No rubs, No murmurs Capillary refill: <2 Seconds Gastrointestinal: Normal bowel sounds, No ascites, Tenderness Musculoskeletal: No clubbing, No swelling, No contractures, No erythema, Integumentary: No rashes, No breakdown, No significant lesion, No tendern ess/swelling, Hospital Course: Patient is a 54-year-old male, with past medical history of HTN, type 2 diabetes mellitus, patient was supposed to be on metformin 500 mg p.o. twice daily, but he states he stopped taking the medication a long time ago after he came out from [facility]. When inquired from the patient why he stopped taking his medication he states that he does not want to take the med because "does not feel good taking the medication". Patient appears to be noncompliant with his treatment protocol. He states he does not have any PCP. Patient reports to the ER today complaining of abdominal pain left lower quadrant. Patient states while he was at work today around 3:30 PM he started having left lower quad abdominal pain, and mid epigastric pain with no associated nausea or vomiting. He states he reported to ER because the pain in his left lower abdomen would not go away patient denies of any history of renal disease. Patient creatinine is 2.58, BUN 30, GFR 29. Patient abdomen soft on palpation, bowel sounds present all 4 quadrants, patient CT of the abdomen impression-no acute findings within the abdomen or pelvis. No appendicitis. Patient with tender abdomen mostly left lower quadrant on palpation. Improved with IV fluids, as needed analgesics, as needed antiemetic tolerating diet, stable to discharge home, follow-up with PCP after discharge. Hypokalemia, electrolytes replaced. Assessment, Epigastric pain, needs to follow-up with GI for outpatient evaluation for EGD, colonoscopy discharged home on PPI, clear liquid diet advance as tolerated obesity BMI 34, recommend Diabetes, diabetic diet, resume home meds after discharge INSTRUCTIONS: Physician Discharge Instructions: -Follow-up with PCP in 1 to 2 weeks -Please call Dr. Kurtz at [phone] if any questions regarding hospital stay -Please call nursing station at [phone] if any nursing or medication questions -Return to the emergency room if symptoms worsen CT of the abdomen, no acute abnormality No acute findings within the abdomen or pelvis. No appendicitis. Diet: ADA, low sodium Activity: Fall precautions Vital Signs/Physical Exam: Temp Pulse Resp BP Pulse Ox 98.2 F 63 14 102/55 L 98 02/10/25 08:00 02/10/25 08:00 02/10/25 08:00 02/10/25 08:00 02/10/25 08:00 Laboratory Data at Discharge: WBC 9.80 thou/uL (4.3-10.9) 02/10/25 12:59 Hgb 14.2 g/dL (13.6-17.9) 02/10/25 12:59 Hct 40.5 % (39.6-49.0) 02/10/25 12:59 Plt Count 274 thou/uL (152-406) 02/10/25 12:59 Sodium 135 mEq/L (136-145) L 02/10/25 04:50 Potassium 3.1 mEq/L (3.5-5.1) L 02/10/25 04:50 BUN 29 mg/dL (7-18) H 02/10/25 04:50 Creatinine 1.60 mg/dL (0.70-1.30) H 02/10/25 04:50 Glucose 142 mg/dL (74-106) H 02/10/25 04:50 Total Bilirubin 1.0 mg/dL (0.2-1.0) 02/10/25 04:50 AST 22 U/L (15-37) 02/10/25 04:50 ALT 38 U/L (16-61) 02/10/25 04:50 Alkaline Phosphatase 71 U/L (45-117) 02/10/25 04:50 Home Medications: Ciprofloxacin HCl 500 mg PO Q12HP 5 Days #10 tablet 02/10/25 Hydrocodone 5/APAP 325 [[place] 5/325] 1 tab PO Q6H PRN #20 tab 02/10/25 Ondansetron [Zofran] 4 mg PO Q6H PRN 5 Days #15 tab 02/10/25 Pantoprazole [Protonix Tab*] 40 mg PO DAILYAC #30 tab 02/10/25 metroNIDAZOLE [Flagyl] 500 mg PO Q12H 5 Days #10 tab 02/10/25 New Medications: Ciprofloxacin HCl 500 mg PO Q12HP 5 Days #10 tablet metroNIDAZOLE [Flagyl] 500 mg PO Q12H 5 Days #10 tab Hydrocodone 5/APAP 325 [[place] 5/325] 1 tab PO Q6H PRN #20 tab PRN Reason: Pain Pantoprazole [Protonix Tab*] 40 mg PO DAILYAC #30 tab Ondansetron [Zofran] 4 mg PO Q6H PRN 5 Days #15 tab PRN Reason: Nausea / Vomiting Physician Discharge Instructions: Patient is a 54-year-old male, with past medical history of HTN, type 2 diabetes mellitus, patient was supposed to be on metformin 500 mg p.o. twice daily, but he states he stopped taking the medication a long time ago after he came out from [facility]. When inquired from the patient why he stopped taking his medication he states that he does not want to take the med because "does not feel good taking the medication". Patient appears to be noncompliant with his treatment protocol. He states he does not have any PCP. Patient reports to the ER today complaining of abdominal pain left lower quadrant. Patient states while he was at work today around 3:30 PM he started having left lower quad abdominal pain, and mid epigastric pain with no associated nausea or vomiting. He states he reported to ER because the pain in his left lower abdomen would not go away patient denies of any history of renal disease. Patient creatinine is 2.58, BUN 30, GFR 29. Patient abdomen soft on palpation, bowel sounds present all 4 quadrants, patient CT of the abdomen impression-no acute findings within the abdomen or pelvis. No appendicitis. Patient with tender abdomen mostly left lower quadrant on palpation. Improved with IV fluids, as needed analgesics, as needed antiemetic tolerating diet, stable to discharge home, follow-up with PCP after discharge. Hypokalemia, electrolytes replaced. Assessment, Epigastric pain, needs to follow-up with GI for outpatient evaluation for EGD, colonoscopy discharged home on PPI, clear liquid diet advance as tolerated obesity BMI 34, recommend Diabetes, diabetic diet, resume home meds after discharge INSTRUCTIONS: Physician Discharge Instructions: -Follow-up with PCP in 1 to 2 weeks -Please call Dr. Kurtz at [phone] if any questions regarding hospital stay -Please call nursing station at [phone] if any nursing or medication questions -Return to the emergency room if symptoms worsen CT of the abdomen, no acute abnormality No acute findings within the abdomen or pelvis. No appendicitis. Diet: ADA, low sodium Activity: Fall precautions Followup: NONE,NONE [Primary Care Provider] - Jairo Devries MD [OUTSIDE PHYSICIAN] - Time spent managing pt's care (in minutes): 45
[2025-02-10 14:53] VITALS: O2SAT 94
== END 2025-02-10 14:49 | disposition home or self-care (01) ==
LOC: ER 19:59 → ERHOLD 02-10 00:16
PROVIDERS: ADMIT Hospitalist; ATTEND Hospitalist
DX: N17.9 Acute kidney failure, unspecified (principal); R10.32 Left lower quadrant pain; R10.13 Epigastric pain; E11.9 Type 2 diabetes mellitus without complications; F17.290 Nicotine dependence, other tobacco product, uncomplicated; Z91.148 Patient's other noncompliance with medication regimen for other reason
CPT/HCPCS: 36415; 74176; 76377; 80048; 80053; 81001; 82550; 82947; 83615; 84484; 85025; 96365; 96375; 99285; G0378; J1644; J2470; J7120; J7799